=== PATIENT | female | born 1955 | race Caucasian/White ===

== ENCOUNTER 2023-05-27 04:26 | Inpatient (IN) | payer MEDICARE, MEDICAID, SELFPAY ==
[2023-05-27] VITALS (14 sets, daily range): BP systolic 86–122; BP diastolic 48–67; BMI 19.4; BMI 18.4
[2023-05-27 01:16] LABS: % Basophils 0.8 % (0-2); % Eosinophils 3.4 % (0-6); % Immature Granulocytes 0.5 % (0-0.5); % Lymphocytes 24.2 % (20.5-51.1); % Monocytes 9.5 % (1.7-9.3); % Neutrophils 61.6 % (42.2-75.2); Absolute Eosinophils 0.1 10^3/uL (0-0.7); Absolute Lymphocytes 0.9 10^3/uL (1.2-3.4); Absolute Monocytes 0.4 10^3/uL (0.1-0.6); Absolute Neutrophils 2.4 10^3/uL (1.4-6.5); Hematocrit 37.8 % (37.0-47.0); Hemoglobin 12.4 g/dL (12.0-16.0); Mean Corp Hgb Conc. 32.8 g/dL (33.0-37.0); Mean Corpuscular Hgb 29.2 pg (27.0-31.0); Mean Corpuscular Volume 88.9 fL (81.0-99.0); Mean Platelet Volume 9.9 fL (7.4-10.4); Nucleated Red Blood Cells % 0 %; Platelet Count 74 10^3/uL (130-400); Red Blood Cell Count 4.25 10^6/uL (4.20-5.40); Red Cell Dist. Width 16.1 % (11.5-14.5); White Blood Cell Count 3.9 10^3/uL (4.8-10.8)
--- NOTE | 2023-05-27 01:19 | ED.GENMED ---
History of Present Illness
<CHICHI Almanza - Last Filed: 05/27/23 04:30>
General
Chief Complaint: Fall
Source: patient
Exam Limitations: none
Time Seen by Provider: 05/27/23 00:42
Nursing documentation reviewed up to this point in time: agreed with
Travel History
Have you had any contact with someone who has COVID-19?: No
Do you have any symptoms of coronavirus? Fever > 100 degrees, chills, cough, shortness of breath, sore throat, loss of taste or smell, muscle aches, or headache?: No
History of Present Illness
History of Present Illness:
patient is a 68 y/o female presenting after a fall. Patient was walking to the bathroom with her walker when she fell and struck her head. Patient has a laceration on the left scientologist. Patient admits to a MAY. Patient lives at a nursing [facility]. Patient
denies N/V/D/C, SOB, CP, visual changes. Patient is on 2 L of oxygen at home prn. patient had 82% O2sat on arrival patient was placed on 2L. Patient complains of left hip pain that is 10/10 pain. Patient states this pain is chronic due to hisotry of
B/L hip replacements. patient denies neck pain.
Past History
<CHICHI Almanza - Last Filed: 05/27/23 04:30>
Past History
ED Past Medical History: Arrthythmia (Atrial fibrillation), COPD, Other (cirrhosis of liver) and Other (neuropathy)
ED Past Surgical History: Orthopedic
Review of Systems
<CHICHI Almanza - Last Filed: 05/27/23 04:30>
Review of Systems
Musculoskeletal: Reports joint swelling
Skin: Reports other (laceration to left scientologist )
Neurological: Reports headache
Phy Exam
<CHICHI Almanza - Last Filed: 05/27/23 04:30>
Physical Exam
Physical Exam:
laceration
Musculoskeletal Exam
Musculoskeletal Exam: other (pain to let him with decreased ROM )
Skin Exam
Skin Exam: laceration (2 left scientologist 1 cm lacerations)
Course
<Lita Mccauley MARGARITA - Last Filed: 05/27/23 04:30>
Orders/Labs/Results
Orders:
Orders
05/27/23 00:49
EKG [Electrocardiogram (*1)] Urgent
Reason for Study: Shortness of Breath
EKG- Treatment ONCE
05/27/23 01:06
CMP [Comprehensive Metabolic Panel] Urgent
Complete Blood Count/With Diff Urgent
05/27/23 01:07
CT Head W/o Iv Contrast Urgent
Comment: L eye laceration
Reason For Exam: unwitness fall
05/27/23 01:16
Hip, Left 2-3 Views [CR Hip - LT w/wo Pel 2-3 Vw*] Urgent
Comment:
Reason For Exam: fall, L hip pain
Include a pelvis x-ray?: Yes
05/27/23 01:17
Lidocaine/Epinephrine/Tetracai [Let Topical Anesthetic Gel] 3 ml .ROUTE .STK-MED ONE
05/27/23 01:41
Lidocaine/Epinephrine/Tetracai [Let Topical Anesthetic Gel] 3 ml TOPICAL NOW STA
05/27/23 03:32
Admit/Transfer Patient As Directed
Co-Sign Provider:
Level of Care: Inpatient admission
Assign to:: Medical/Surgical
Physician / Group: Alisha Maier
Diagnosis: left periprosthetic hipfracture
Reason for Hospitalization: left periprosthetic hipfracture
Expected length of stay greater than two midnights?: Yes
ELOS- Estimated Length of Stay in days: 3
I certify the patient meets the requirements for IP care: Yes
05/27/23 03:38
Code Status As Directed
Resuscitation Status: Full Code
05/27/23 04:25
Acetaminophen [Tylenol] 650 mg PO Q4H PRN
Hydrocodone 5/APAP 325 [Garrard 5/325] 1 tablet PO Q4HPRN PRN
Lorazepam [Ativan] 0.5 mg PO BID PRN
Polyethylene Glycol Powder [Miralax] 17 grams PO DAILY PRN
05/27/23 04:25
Consult Notification Routine
Specialty to Notify: Pulmonary
Consult Orthopedic [ORTHOPEDIC CONSULT] Routine
Consulting Provider: Ben Florentino
Was physician already notified: Yes
Consult Pulmonary [PULMONARY CONSULT] Routine
Consulting Provider: Israel Lopez
Was physician already notified: No
Reason for consult: OR clearance; hx COPD and chronic O2 dependence with hip fracture
Activity As Directed
Activity Level: As Tolerated
Pneumatic Compression Sleeves As Directed
Type: Knee high
Vital Signs As Directed
Frequency: Per unit guidelines
DX Deep Vein Thrombosis Video Routine
05/27/23 06:00
Basic Metabolic Panel IN AM
Complete Blood Count/No Diff IN AM
Magnesium IN AM
05/27/23 08:00
Gabapentin [Neurontin] 400 mg PO TID
Rifaximin [Xifaxan] 550 mg PO BID
Sertraline HCl [Zoloft] 25 mg PO DAILY
Ursodiol [Actigall] 300 mg PO BID
daicagytber-tmvwtfoap-knfqmmfm [Trelegy Ellipta] 1 inh INH R DAILY
lactulose 15 ml PO TID
Abnormal Lab Results
05/27/23
01:06
WBC 3.9 L 10^3/uL
(4.8-10.8)
MCHC 32.8 L g/dL
(33.0-37.0)
RDW 16.1 H %
(11.5-14.5)
Plt Count 74 L 10^3/uL
(130-400)
Absolute Lymphs (auto) 0.9 L 10^3/uL
(1.2-3.4)
Monocytes % 9.5 H %
(1.7-9.3)
BUN 21 H mg/dl
(7-17)
Glucose 111 H mg/dl
(70-99)
AST 40 H U/L
(14-36)
Alkaline Phosphatase 198 H U/L
(38-126)
Albumin 3.4 L g/dl
(3.5-5.0)
05/27/23 01:06
05/27/23 01:06
Vital Signs
Initial and Last Documented VS:
Initial Vital Signs
Temp Pulse Resp BP Pulse Ox
97.8 F 81 13 122/63 81
05/27/23 00:43 05/27/23 00:43 05/27/23 00:43 05/27/23 00:43 05/27/23 00:43
Last Documented Vital Signs
Temp Pulse Resp BP Pulse Ox
97.8 F 69 13 97/52 91
05/27/23 00:43 05/27/23 02:00 05/27/23 02:00 05/27/23 02:00 05/27/23 03:00
<Carey South, DO - Last Filed: 05/27/23 02:45>
Orders/Labs/Results
Orders:
Orders
05/27/23 00:49
EKG [Electrocardiogram (*1)] Urgent
Reason for Study: Shortness of Breath
EKG- Treatment ONCE
05/27/23 01:06
CMP [Comprehensive Metabolic Panel] Urgent
Complete Blood Count/With Diff Urgent
05/27/23 01:07
CT Head W/o Iv Contrast Urgent
Comment: L eye laceration
Reason For Exam: unwitness fall
05/27/23 01:16
Hip, Left 2-3 Views [CR Hip - LT w/wo Pel 2-3 Vw*] Urgent
Comment:
Reason For Exam: fall, L hip pain
Include a pelvis x-ray?: Yes
05/27/23 01:17
Lidocaine/Epinephrine/Tetracai [Let Topical Anesthetic Gel] 3 ml .ROUTE .STK-MED ONE
05/27/23 01:41
Lidocaine/Epinephrine/Tetracai [Let Topical Anesthetic Gel] 3 ml TOPICAL NOW STA
05/27/23 03:32
Admit/Transfer Patient As Directed
Co-Sign Provider:
Level of Care: Inpatient admission
Assign to:: Medical/Surgical
Physician / Group: Alisha Maier
Diagnosis: left periprosthetic hipfracture
Reason for Hospitalization: left periprosthetic hipfracture
Expected length of stay greater than two midnights?: Yes
ELOS- Estimated Length of Stay in days: 3
I certify the patient meets the requirements for IP care: Yes
05/27/23 03:38
Code Status As Directed
Resuscitation Status: Full Code
05/27/23 04:25
Acetaminophen [Tylenol] 650 mg PO Q4H PRN
Hydrocodone 5/APAP 325 [Garrard 5/325] 1 tablet PO Q4HPRN PRN
Lorazepam [Ativan] 0.5 mg PO BID PRN
Polyethylene Glycol Powder [Miralax] 17 grams PO DAILY PRN
05/27/23 04:25
Consult Notification Routine
Specialty to Notify: Pulmonary
Consult Orthopedic [ORTHOPEDIC CONSULT] Routine
Consulting Provider: Ben Florentino
Was physician already notified: Yes
Consult Pulmonary [PULMONARY CONSULT] Routine
Consulting Provider: Israel Lopez
Was physician already notified: No
Reason for consult: OR clearance; hx COPD and chronic O2 dependence with hip fracture
Activity As Directed
Activity Level: As Tolerated
Pneumatic Compression Sleeves As Directed
Type: Knee high
Vital Signs As Directed
Frequency: Per unit guidelines
DX Deep Vein Thrombosis Video Routine
05/27/23 06:00
Basic Metabolic Panel IN AM
Complete Blood Count/No Diff IN AM
Magnesium IN AM
05/27/23 08:00
Gabapentin [Neurontin] 400 mg PO TID
Rifaximin [Xifaxan] 550 mg PO BID
Sertraline HCl [Zoloft] 25 mg PO DAILY
Ursodiol [Actigall] 300 mg PO BID
dpeugzplnjd-rrsbxnukv-xumxeleb [Trelegy Ellipta] 1 inh INH R DAILY
lactulose 15 ml PO TID
Abnormal Lab Results
05/27/23
01:06
WBC 3.9 L 10^3/uL
(4.8-10.8)
MCHC 32.8 L g/dL
(33.0-37.0)
RDW 16.1 H %
(11.5-14.5)
Plt Count 74 L 10^3/uL
(130-400)
Absolute Lymphs (auto) 0.9 L 10^3/uL
(1.2-3.4)
Monocytes % 9.5 H %
(1.7-9.3)
BUN 21 H mg/dl
(7-17)
Glucose 111 H mg/dl
(70-99)
AST 40 H U/L
(14-36)
Alkaline Phosphatase 198 H U/L
(38-126)
Albumin 3.4 L g/dl
(3.5-5.0)
05/27/23 01:06
05/27/23 01:06
Vital Signs
Initial and Last Documented VS:
Initial Vital Signs
Temp Pulse Resp BP Pulse Ox
97.8 F 81 13 122/63 81
05/27/23 00:43 05/27/23 00:43 05/27/23 00:43 05/27/23 00:43 05/27/23 00:43
Last Documented Vital Signs
Temp Pulse Resp BP Pulse Ox
97.8 F 69 13 97/52 91
05/27/23 00:43 05/27/23 02:00 05/27/23 02:00 05/27/23 02:00 05/27/23 03:00
Procedures
<CHICHI Almanza - Last Filed: 05/27/23 04:30>
Laceration Closure
Left Lateral Eye brow:
Status of Wound: clean
Size of Wound in cm: 2.5
Description of Wound Edges: sharp
Preparation: cleaned with saline
Anesthesia: 1% Lidocaine with epi and added Na Bicarb to local
Revision/Debridement: irrigate-direct pressure
Wound exploration: explored to base- no FB
Type of Closure: interrupted sutures
Skin Closure Material: 5-0 prolene
Number of sutures: 6
<CHICHI Almanza - Last Filed: 05/27/23 04:30>
MDM/Problems Addressed
Differential Diagnosis Includes:
fall
hip fracture
brain hemorrhage
MDM/Problems Addressed:
fall
<Carey South DO - Last Filed: 05/27/23 02:45>
*Radiology
Radiology exam reviewed: preliminary read by ED provider (Left x-ray shows a periprosthetic fracture lateral proximal femur shaft. This fracture is new compared to previous film January 2023.)
*Pulse Oximetry
Patient hypoxic: yes
*EKG
Interpreted by ED Provider?: Yes
Interpretation: normal
Comparison EKG: no changes (Unchanged from previous January 2023)
Rate: normal
Rhythm: sinus
Reading: normal axis
Interval: normal interval
QRS Pattern: normal QRS
Ischemia: no ischemia
*Critical Care Note
Total Time (30-74mins, 75-104mins- exclusive of procedures): Not Applicable
ED Attending Note
<CHICHI Almanza - Last Filed: 05/27/23 04:30>
-
Portions of this chart may have been created with voice recognition software.� Occasional wrong word or��sound alike� substitutions may have occurred due to the inherent limitations of voice recognition software.
<Carey South DO - Last Filed: 05/27/23 02:45>
ED Attending Note
Patient seen and examined by attending physician: Yes
I performed the substantive portion of visit, reviewed & personally made and approve the management plan that is documented in note by myself or QUINTON.: Yes
I performed a history and physical exam of patient and discussed management with resident, I reviewed resident's note and agree with documented findings and plan of care.: Yes
ED Attending Note:
This is a 68-year-old woman who has history of peripheral neuropathy, bilateral hip replacements, chronic ambulatory dysfunction, [facility] since most recent hospitalization here January 2023.
While ambulating with her walker into the bathroom she states her walker 'got away from her' and she fell onto her left side sustaining a laceration to her left lateral brow, contusion to her left shoulder. She denies loss of consciousness. She
arrives via EMS.
She denies headache, denies neck or back pain. She does admit to moderate left hip pain and has history of chronic left hip pain for which she takes hydrocodone twice daily on an as-needed basis. She denies back pain, no nausea nor vomiting.
She takes no anticoagulants.
She has full recollection of fall, denying prodrome of dizziness nor lightheadedness.
TRAUMA EXAM:
VITAL SIGNS: Vital signs reviewed, cooperative
DISTRESS: No active disease
EYES: Pupils reactive, extraocular muscles intact. There is a 2.5 cm lacerations left lateral brow with moderate dried blood about the wound. Minimal local tenderness to palpation.
NOSE: No deformity or epistaxis
FACE AND SCALP: No scalp trauma, external canals no blood
NECK: Supple nontender, full range of motion without difficulty nor pain.
BACK: Patient able to sit up with only minimal assistance. Back nontender, pelvis stable to compression
RESPIRATORY: No distress, breath sounds normal, no tender chest wall
CARDIAC: No murmur, pulses equal and strong
ABDOMEN: Soft nontender bowel sounds normal
SKIN: Warm and dry, normal color. Poor turgor.
EXTREMITIES: There is a superficial abrasion left superior shoulder. No focal bony tenderness and full shoulder range of motion without difficulty nor pain. There is dark purple ecchymosis left posterior distal upper arm. No bony tenderness and
full elbow range of motion without difficulty nor pain. There is mild tenderness about the left hip with increased pain of the left hip with internal and external rotation. There is no leg length discrepancy. No soft tissue swelling, no crepitus.
NEUROLOGICAL: Alert, oriented, no motor deficits
PSYCH: Mood affect normal
Patient has suffered a mechanical fall while ambulating with her walker sustaining laceration left lateral brow that will require suture repair.
She has sustained an abrasion to her superior shoulder but no palpable bony tenderness and full range of motion.
She does however complain of some left hip pain although chronic in nature reports increased in her baseline pain and reports inability to bear weight when assisted to stand by EMS. Concern for occult fracture thus will check x-ray of her left hip
with pelvis and will check CT of the head due to advanced age and head injury.
05/27/2023 0243 AM
Left lateral brow laceration repair by PA student under my direct supervision.
Left hip x-ray shows periprosthetic fracture proximal femoral shaft. Hip prosthesis is intact.
CT of the head shows no acute traumatic findings.
Will admit to hospitalist service with plan for orthopedic evaluation.
Discharge Plan
Departure
Patient Disposition: Admit
Date of Disposition: 05/27/23
Time of Disposition: 02:44
Admit to: Med/Surg
Admit to doctor: Livier
Presentation/result/management discussed w/ accepting MD/DO: Hospitalist
Condition: Fair
Discharge Problem:
Periprosthetic fracture around internal prosthetic left hip joint, initial encounter, Mechanical fall at senior living, Left lateral brow laceration, Contusion of left shoulder
Interventions
Interventions:
*Risk Screen - Suicide Last Done: 05/27/23 00:50
*General Assessment Last Done: 05/27/23 00:50
*Neglect/Abuse Screening Last Done: 05/27/23 00:50
ED- Fall Risk Assessment Last Done: 05/27/23 01:21
*ED COVID-19 Vaccine History Last Done: 05/27/23 00:50
ED-Musculoskeletal Assessment Last Done: 05/27/23 01:18
ED- Neurological Assessment Last Done: 05/27/23 01:18
ED-Skin Assessment Last Done: 05/27/23 01:18
[2023-05-27 01:33] LABS: ALT (SGPT) 24 U/L (0-35); AST (SGOT) 40 U/L (14-36); Albumin 3.4 g/dl (3.5-5.0); Alkaline Phosphatase 198 U/L (38-126); Blood Urea Nitrogen 21 mg/dl (7-17); Calcium 9.5 mg/dl (8.4-10.2); Carbon Dioxide 25 mmol/L (22-30); Chloride 107 mmol/L (98-107); Estimated Creatinine Clearance 68 ml/min; Glucose 111 mg/dl (70-99); Potassium 4.1 mmol/L (3.5-5.1); Sodium 135 mmol/L (135-145); Total Bilirubin 0.8 mg/dl (0.2-1.3); Total Protein 6.9 g/dl (6.3-8.2); eGFR > 60.00
[2023-05-27] MEDS: LET TOPICAL ANESTHETIC GEL 3 ML TOPICAL (01:41)
--- NOTE | 2023-05-27 03:17 | HPS.HSE ---
Addendum entered and electronically signed by Alisha Maier MD 05/27/23 03:54:
*HPI:
Patient somnolent during my interview at 3:30 AM but able to wake up and not to questions I ask. History mainly obtained from ER note. She was walking to the bathroom with a walker when she tripped and hit her head. Patient nodded yes to
remembering the act of falling and no to any preceding chest pain. She complained of left hip pain upon arrival to the ER.
Original Note:
Family Physician
-
Family Physician: Douglas Conner
Chief Complaint
-
left hip pain post fall
History of Present Illness
MS. 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
former alcohol use presents to the ER after a fall resulting in left lateral orbit laceration and left hip pain.
Medical History
Past Medical History
Past Medical History: Reports Other
Additional Past Medical History:
Chronic obstructive pulmonary disease with chronic hypoxemic respiratory failure oxygen dependent
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
Peripheral neuropathy
Depression/anxiety
History of hyponatremia
History of hepatic encephalopathy
Past Surgical History: Reports Other
Additional Past Surgical History:
Right hip replacement 2021
Left hip replacement 2022
Social History
Tobacco: Former Smoker (Quit 6 months ago--1 pack/day)
Alcohol: Former (Quit 'a long time ago')
Drug: None
Living: With Family
Family History
Family History: Other (Mother, father, brother all of alcoholism)
Allergies / Home Medications
Allergies reflects when Allergies were last updated in [facility].
Home Medications with original date entered in [employer]
Allergy/Medication List:
Allergies
Allergy/AdvReac Type Severity Reaction Status Date / Time
No Known Allergies Allergy Verified 05/27/23 00:47
Home Medications
fluticasone fur. 100 mcg-umeclid 62.5 mcg-vilant 25 mcg inhalat.powder (Trelegy Ellipta) 1 inh inhalation R DAILY Lung/Breathing Issues 01/29/23
furosemide 20 mg tablet 20 mg PO DAILY Fluid Retention/Swelling 01/29/23
gabapentin 300 mg capsule 400 mg PO TID Neurological Condition 01/29/23
hydrocodone 5 mg-acetaminophen 325 mg tablet 1 tab PO BID PRN mild pain 01/29/23
ketoconazole 2 % shampoo 1 applic topical .SEE BELOW apply to scalp 01/29/23
lactulose 10 gram/15 mL oral solution 15 ml PO TID Liver Issues 01/29/23
lorazepam 0.5 mg tablet 0.5 mg PO BID PRN anxiety 01/29/23
polyethylene glycol 3350 17 gram oral powder packet (Miralax) 17 g PO DAILY PRN constipation 01/29/23
rifaximin 550 mg tablet (Xifaxan) 550 mg PO BID Liver Issues 01/29/23
sertraline 25 mg tablet 25 mg PO DAILY Depression 01/29/23
spironolactone 25 mg tablet 25 mg PO DAILY Fluid Retention/Swelling 01/29/23
ursodiol 300 mg capsule 300 mg PO BID Gallstones 01/29/23
acetaminophen 325 mg tablet (Tylenol) 650 mg PO Q4H PRN for pain 05/27/23
acetaminophen 325 mg tablet (Tylenol) 650 mg PO Q4H PRN temp greater than 100 F Max 3000mg in 24 hr period 05/27/23
Review of Systems
-
History Source: Patient
A 12 point ROS was completed and negative except as noted: Yes
Physical Exam
Vital Signs
Vital Signs
Temp Pulse Resp BP Pulse Ox
97.8 F 69 13 97/52 91
05/27/23 00:43 05/27/23 02:00 05/27/23 02:00 05/27/23 02:00 05/27/23 03:00
Physical Exam
General: No Apparent Distress and Other (patient somnolent at 3:45 AM but able to awaken to voice and nod to questions )
HEENT: PERRLA and Other (left lateral eyebrow wound s/p sutures )
Respiratory: Clear; No Wheezes
Cardiac: S1/S2 and Regular Rhythm
GI: Soft and Non Tender
Musculoskeletal: No Edema
Neuro: Sedated (arousable to voice )
Psych: Calm
Laboratory Results
-
05/27/23 01:06
05/27/23 01:06
Laboratory Results
Total Bilirubin 0.8 mg/dl (0.2-1.3) 05/27/23 01:06
AST 40 U/L (14-36) H 05/27/23 01:06
ALT 24 U/L (0-35) 05/27/23 01:06
Alkaline Phosphatase 198 U/L (38-126) H 05/27/23 01:06
Data Reviewed
-
Diagnostic Radiology: Report Reviewed by me
Lab Data: Labs Reviewed by me
Impression/Plan
-
MS. 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
former alcohol use presents to the ER after a fall resulting in left lateral orbit laceration and left hip pain.
Triage VS: T 97.8, P 81, RR 13, BP 122/63, SpO2 81%
LABS: WBC 3.9, HG 12.4, PLT 74, Na 135, K+ 4.1, BUN 21, Cr 0.6, Glucose 111, Ca 9.5, T. Bili 0.8, AST 40, ALT 24, Alk Phos 198
CT Head: no acute intracranial abnormality. No acute territorial infarct, hemorrhage, mass effect or midline shift. Mild microangiopathy and volume loss.
Periprosthetic left hip fracture
-admit to medicine
-Dr. Florentino aware and will see patient tomorrow
-keep NPO for now until ortho evaluates
-DVT PPx with SCD for now
-patient did not receive pain medication in ER and sound asleep; will have norco PRN, team to order IV if necessary
-Pulm clearance prior to OR given O2 dependence
Laceration left lateral brow
-s/p suturing in ER
-head CT without acute bleed
Hx cirrhosis 2/2 alcohol use
chronic thrombocytopenia
-in setting of cirrhosis
-stable
-hold PRODUCTION CHECKER lasix/spironolactone for now while NPO
-continue PRODUCTION CHECKER Xifaxan
-PRODUCTION CHECKER lactulose
COPD
Chronic hypoxic respiratory failure on home O2
-PRODUCTION CHECKER inhalers
-Pulm clearance prior to potential OR
Depression/Anxiety
-PRODUCTION CHECKER Zoloft
-PRODUCTION CHECKER ativan PRN
DVT PPx SCD
FULL CODE - patient tired but able to wake up enough to answer questions during interview - team to consider rediscussing with patient tomorrow when she is more awake
[2023-05-27 06:45] LABS: Hematocrit 35.4 % (37.0-47.0); Hemoglobin 11.3 g/dL (12.0-16.0); Mean Corp Hgb Conc. 31.9 g/dL (33.0-37.0); Mean Corpuscular Hgb 29.4 pg (27.0-31.0); Mean Corpuscular Volume 91.9 fL (81.0-99.0); Mean Platelet Volume 10.9 fL (7.4-10.4); Platelet Count 76 10^3/uL (130-400); Red Blood Cell Count 3.85 10^6/uL (4.20-5.40); White Blood Cell Count 5.1 10^3/uL (4.8-10.8)
[2023-05-27 07:18] LABS: Blood Urea Nitrogen 22 mg/dl (7-17); Calcium 9.6 mg/dl (8.4-10.2); Carbon Dioxide 24 mmol/L (22-30); Chloride 107 mmol/L (98-107); Estimated Creatinine Clearance 68 ml/min; Glucose 99 mg/dl (70-99); Magnesium 1.7 mg/dl (1.6-2.3); Sodium 139 mmol/L (135-145); eGFR > 60.00
--- NOTE | 2023-05-27 07:38 | W.PN.UPDATE ---
Update Note
Progress Note Update
Patient seen and evaluated
Plan pending. NWB LLE for now. No planned orthopedic intervention today, OK to eat.
Will update plan with formal consult note.
--- NOTE | 2023-05-27 09:09 | CM ---
Patient is LTC at [facility]. Patient s/p fall and per admissions is for return when medically appropriate. CM will update physician and continue to review.
Plan return to SNF when medically appropriate
[2023-05-27] MEDS: NORCO 5/325 1 TABLET PO ×2 (09:21→21:43)
--- NOTE | 2023-05-27 09:56 | CON.PUL ---
Consultation
Consultation Request
Date/Time Consultation Requested: 05/27/23-7:30 AM
Date/Time Consultation Performed: 05/27/23-8 AM
Requesting Provider: Hospitalist
Performing Provider: Dr. Chang
Reason for Consultation: COPD/preoperative clearance
Medical History
-
Chief Complaint: Hip fracture
History of Present Illness:
68-year-old female recently quit smoking has a history of underlying COPD on 3 L home oxygen, cirrhosis, hepatic encephalopathy, anxiety and depression with bilateral hip replacements in the past who experienced a fall resulting in left lateral
orbit laceration and left hip pain-might need surgery-pulmonary consulted for preoperative COPD/pulmonary clearance 05/27/2023. Patient was seen in the emergency room. She is somewhat groggy. I wondered if she had gotten pain medications, upper, I
spoke to nursing and she had not. She was alert and able to answer questions. She denies any shortness of breath beyond her baseline, chest congestion, productive cough, mopped assist, pleurisy, chest pain, or abdominal pain. She did complain of
hip pain. She states she is not on inhalers at home. She is on 3 L oxygen. She does not follow with a contracts officer.
Past Medical History
Past Medical History: None (COPD on chronic 3 L oxygen. Cirrhosis secondary to alcohol. History hepatic encephalopathy. Anxiety. Depression. Peripheral neuropathy. Hyponatremia. Right hip replacement 2021. Left hip replacement 2022. )
Social History
Tobacco: Former Smoker ([id number] quit 6 months ago)
Alcohol: Former
Drug: None
Living: With Family
Occupational Exposures: No known asbestos exposure
Environmental Exposures: No known tuberculosis exposure
Family History
Family History: Other (Mother, brother and father from alcoholism)
Allergies / Home Medications
Allergies
Allergy/AdvReac Type Severity Reaction Status Date / Time
No Known Allergies Allergy Verified 05/27/23 00:47
Home Medications
�Medication �Instructions �Recorded �Confirmed �Last Taken �Type
furosemide 20 mg tablet 20 mg PO DAILY Fluid 01/29/23 05/27/23 Unknown History
Retention/Swelling
hydrocodone 5 mg-acetaminophen 325 1 tab PO [id number] PRN mild pain 01/29/23 05/27/23 Unknown History
mg tablet
lactulose 10 gram/15 mL oral 15 ml PO TID Liver Issues 01/29/23 05/27/23 Unknown History
solution
lorazepam 0.5 mg tablet 0.5 mg PO [id number] PRN anxiety 01/29/23 05/27/23 Unknown History
rifaximin 550 mg tablet (Xifaxan) 550 mg PO BID Liver Issues 01/29/23 05/27/23 Unknown History
acetaminophen 325 mg tablet 650 mg PO Q4HPRN PRN mild 05/27/23 05/27/23 Unknown History
(Tylenol) pain/temp>100F
bisacodyl 10 mg rectal suppository 10 mg KS DAILY PRN if MOM 05/27/23 05/27/23 Unknown History
(Dulcolax (bisacodyl)) ineffective after 24 hrs
fluticasone fur. 100 mcg-umeclid 1 inh inhalation R DAILY 05/27/23 05/27/23 Unknown History
62.5 mcg-vilant 25 mcg
inhalat.powder (Trelegy Ellipta)
gabapentin 400 mg capsule 400 mg PO TID 05/27/23 05/27/23 Unknown History
magnesium hydroxide 400 mg/5 mL 30 ml PO DAILY PRN if no BM in 3 05/27/23 05/27/23 Unknown History
oral suspension (Milk of Magnesia) days
melatonin 5 mg tablet 5 mg PO HS 05/27/23 05/27/23 Unknown History
polyethylene glycol 3350 17 gram 17 g PO DAILY PRN constipation 05/27/23 05/27/23 Unknown History
oral powder packet (Miralax)
sertraline 25 mg tablet 25 mg PO DAILY 05/27/23 05/27/23 Unknown History
sodium phosphates 19 gram-7 118 ml KS DAILYPRN PRN if dulcolax 05/27/23 05/27/23 Unknown History
gram/118 mL enema (Fleet Enema) ineffective after 24 hrs
spironolactone 25 mg tablet 25 mg PO DAILY 05/27/23 05/27/23 Unknown History
Review of Systems
-
Unable to Obtain full review of systems at this time due to: Other (Per HPI)
Vitals / Labs / Diagnostic Testing
Vital Signs
Temp Pulse Resp BP Pulse Ox
98.1 F 77 13 94/55 94
05/27/23 09:18 05/27/23 09:18 05/27/23 02:00 05/27/23 09:00 05/27/23 09:15
Lab Data
05/27/23 06:01
05/27/23 06:01
Diagnostic Testing:
Physical Exam
-
HEENT: Normocephalic, Anicteric, Moist Mucous Membranes and Other (Temporal wasting)
Cardiovascular: Regular Rhythm and Murmur
Respiratory: Clear ( diminished breath sounds throughout), Wheeze (Forced end expiratory), Rales (n), Rhonchi (n), Non-Labored Respirations and Accessory Resp Muscle Use (n)
GI: Soft, Non Distended and Non Tender
Neurology: Awake, Alert and No Motor Deficits
Skin: Warm and Good Color
General: Respiratory Distress (n) and Comfortable
Assessment
-
68-year-old female recently quit smoking has a history of underlying COPD on 3 L home oxygen, cirrhosis, hepatic encephalopathy, anxiety and depression with bilateral hip replacements in the past who experienced a fall resulting in left lateral
orbit laceration and left hip pain-might need surgery-pulmonary consulted for preoperative COPD/pulmonary clearance 05/27/2023.
Status post fall with periprosthetic left hip fracture
Left lateral brow laceration-CT head without acute bleed
COPD-suspect Gold stage III/IV without acute exacerbation-on chronic oxygen 3 L
Mild ztmolq-mqqbfvomuj-zftkxeydzs 11.3
Thrombocytopenia-platelet 74
Mild hyperglycemia-blood sugar 111
Conditions present prior to admission:
Hospitalization 01/2023-weakness, fall, chronic hypoxemic respiratory failure due to oxygen dependent COPD, cirrhosis and chronic thrombocytopenia
COPD on chronic 3 L oxygen-reportedly does not see a contracts officer, not on inhalers, on oxygen 3 L
Former [id number]-quit 6 months ago
Cirrhosis secondary to alcohol.
History hepatic encephalopathy.
Anxiety.
Depression.
Peripheral neuropathy.
Hyponatremia.
Right hip replacement 2021. Left hip replacement 2022.
Plan
Historically I suspect the patient has Gold stage III/IV COPD-oxygen dependent not on inhalers with current chest clear, diminished, no active wheezing or crackles
Continue supplemental oxygen as needed
Incentive spirometry
Aspiration precautions
Nebulizers as needed
Symbicort and Spiriva continue
Analgesia per primary service-monitor for oversedation
Orthopedics to see patient
If OR needed-patient cleared for proposed surgery with moderate risks for perioperative pulmonary complications-if possible conscious sedation/spinal and local anesthesia
Follow hemoglobin
Transfuse as needed
Follow platelet count as well
DVT prophylaxis-mechanical
Eventual early nutrition
Eventual physical and Occupational Therapy
Patient would benefit from outpatient pulm evaluation-PFTs, probable inhalers, ongoing smoking cessation counseling and yearly low-dose lung cancer screening CT
Diagnostic data:
Chest x-ray 01/29/2023-blunting of both posterior sulci suggesting small bilateral pleural effusions, lungs otherwise clear
Hip x-ray 05/27/23-bilateral hip arthroplasties, periprosthetic fracture left side
CT head 05/27/23-no acute intracranial abnormalities, diffuse cortical atrophy
Data Reviewed
-
Radiology: Report reviewed by me
Medical Tests (Nuc Med, Echo etc): Report reviewed by me
Labs: Labs reviewed by me
Old Records: Reviewed
Total Time Spent with Patient (in minutes): 55
--- NOTE | 2023-05-27 10:14 | PTCARENOTE ---
pt wakes to name. oriented x3. states 10/10 pain in left hip. pain med given as ordered. nc3l breath sounds diminished with harsh cough.
--- NOTE | 2023-05-27 10:15 | PTCARENOTE ---
left forehead sutures in place with dressing over.
[2023-05-27] MEDS: DUPHALAC/CHRONULAC 10 GRAMS PO ×3 (10:43→21:38)
[2023-05-27] MEDS: NEURONTIN 400 MG PO ×3 (10:43→21:38)
[2023-05-27] MEDS: ZOLOFT 25 MG PO (10:44)
[2023-05-27] MEDS: XIFAXAN 550 MG PO ×2 (10:44→21:38)
[2023-05-27] MEDS: ALDACTONE PO (11:08)
[2023-05-27] MEDS: SYMBICORT 80/4.5 MCG INHALER INH (11:22)
[2023-05-27] MEDS: SPIRIVA RESPIMAT 2.5 MCG INH (11:22)
--- NOTE | 2023-05-27 15:36 | W.PN.UPDATE ---
Update Note
Progress Note Update
Seen by Dr. Maier this morning. Admitted after a fall and sustaining a periprosthetic left femur fracture.
Currently she is awake and alert.
She remembers getting up in the dark to go to the bathroom and stepped on something and fell down. She also has neuropathy. Balance is an issue for her.
Denies any passing out spells.
She is planned for surgery possibly tomorrow.
She is COPD with no acute symptoms. She is chronically on O2. Chest is clear. No respiratory distress. No cough or sore throat. No evidence of acute flare.
EKG sinus rhythm. No history of CAD. Denies history of diabetes or PAD.
Known to have cirrhosis on diuretic regimen and as well as lactulose. Currently alert and oriented. No evidence of encephalopathy. No evidence of ascites clinically. Continue with her home medication regimen. Watch out for hepatic
encephalopathy with anesthesia. Check coagulation profile. Chronic thrombocytopenia noted without changes.
[2023-05-27] MEDS: TYLENOL 650 MG PO (15:56)
--- NOTE | 2023-05-27 15:57 | PTCARENOTE ---
pt transfered to floor with all belongings.
--- NOTE | 2023-05-27 17:28 | CON.ORTHO ---
Consultation
-
Date/Time Consultation Requested: 3 AM 05/27/2023
Date/Time Consultation Performed: 730 AM 05/27/2023
Requesting Provider: Livier
Performing Provider: Chadd
Reason for Consultation: Left periprosthetic femur fracture
Consultation - Orthopedics
History
68-year-old female history of cirrhosis COPD on chronic oxygen at baseline presented to the emergency department status post fall with complaints of left hip pain. She was subsequently diagnosed with minimally displaced periprosthetic left femur
fracture. She was admitted to the hospital service for ambulatory dysfunction and orthopedics was consulted for further evaluation and treatment. This morning patient was somewhat somnolent but did awaken for history taking. She reports that she
does live at a rehab facility. She does typically ambulate with assistance of a walker. She reports recently moving to the area from [place] to be closer to her daughter. She does have a history of bilateral total hip arthroplasty left most
recently done about a year and a half ago in [place]. She is currently localizing pain to the lateral aspect of the left thigh and hip region. Symptoms made worse with direct palpation affected area with attempted ambulation.
Allergies / Home Medications
Past medical history: COPD on chronic oxygen, cirrhosis secondary to alcohol use, history of hepatic encephalopathy, anxiety/depression
Past surgical history: Bilateral total hip arthroplasty
Family history: Not pertinent
Social history: Former smoker reportedly quit about 6 months ago, former alcohol use
Allergy/AdvReac Type Severity Reaction Status Date / Time
No Known Allergies Allergy Verified 05/27/23 00:47
�Medication �Instructions �Recorded
furosemide 20 mg tablet 20 mg PO DAILY Fluid 01/29/23
Retention/Swelling
hydrocodone 5 mg-acetaminophen 325 1 tab PO [id number] PRN mild pain 01/29/23
mg tablet
lactulose 10 gram/15 mL oral 15 ml PO TID Liver Issues 01/29/23
solution
lorazepam 0.5 mg tablet 0.5 mg PO [id number] PRN anxiety 01/29/23
rifaximin 550 mg tablet (Xifaxan) 550 mg PO BID Liver Issues 01/29/23
acetaminophen 325 mg tablet 650 mg PO Q4HPRN PRN mild 05/27/23
(Tylenol) pain/temp>100F
bisacodyl 10 mg rectal suppository 10 mg IN DAILY PRN if MOM 05/27/23
(Dulcolax (bisacodyl)) ineffective after 24 hrs
fluticasone fur. 100 mcg-umeclid 1 inh inhalation R DAILY 05/27/23
62.5 mcg-vilant 25 mcg
inhalat.powder (Trelegy Ellipta)
gabapentin 400 mg capsule 400 mg PO TID 05/27/23
magnesium hydroxide 400 mg/5 mL 30 ml PO DAILY PRN if no BM in 3 05/27/23
oral suspension (Milk of Magnesia) days
melatonin 5 mg tablet 5 mg PO HS 05/27/23
polyethylene glycol 3350 17 gram 17 g PO DAILY PRN constipation 05/27/23
oral powder packet (Miralax)
sertraline 25 mg tablet 25 mg PO DAILY 05/27/23
sodium phosphates 19 gram-7 118 ml IN DAILYPRN PRN if dulcolax 05/27/23
gram/118 mL enema (Fleet Enema) ineffective after 24 hrs
spironolactone 25 mg tablet 25 mg PO DAILY 05/27/23
Vital Signs / Lab Results
Temp Pulse Resp BP Pulse Ox
97.9 F 70 20 110/58 95
05/27/23 15:00 05/27/23 15:00 05/27/23 15:00 05/27/23 15:00 05/27/23 16:29
05/27/23 06:01
05/27/23 06:01
10 point review systems reviewed and negative unless otherwise stated
General: Somewhat somnolent, alert for history taking, no acute distress
, Left lower extremity
Skin intact overlying left hip with well-healed surgical incision
No groin pain with passive motion of left hip
There is discrete tense palpation of the lateral trochanteric flare lateral proximal femur
No palpable ipsilateral knee effusion
Positive EHL, FHL, ankle dorsiflexion, plantarflexion
Sensation at baseline distally numbers cap refill
Diagnostic studies
X-rays left hip independently viewed by myself. This does show essentially nondisplaced disruption of the lateral cortex consistent with a Dalton B periprosthetic femur fracture. Recent radiographs obtained of the left hip in January were also
reviewed that do show no evidence of interval subsidence of the femoral stem on current radiographs.
Assessment / Plan
68-year-old female history of cirrhosis COPD with minimally displaced Dalton B periprosthetic femur fracture left. I had a very long detailed discussion with patient regarding diagnosis and treatment options. We discussed both conservative and
surgical treatment. Given the patient's significant comorbidities and the minimally displaced nature of the fracture, we mutually agreed to proceed with conservative treatment. Would recommend toe-touch weightbearing left lower extremity with a
walker. Will plan to follow closely outpatient setting serial radiographs. I did explain to the patient that should there be any evidence of interval displacement or subsidence of the fracture stem, she likely would require surgery either open
reduction internal fixation or open reduction internal fixation to include revision of arthroplasty components. She voiced understanding was agreement with this. She did ask me to reach out to her daughter who is a nurse to discuss this further
and I will plan to give her a call. Plan to have her follow-up as an outpatient in 2 weeks for repeat evaluation with repeat radiographs. Please reach out any questions or concerns
[2023-05-27] MEDS: SYMBICORT 80/4.5 MCG INHALER 2 PUFF INH (19:23)
[2023-05-28 06:19] LABS: Hemoglobin 10.8 g/dL (12.0-16.0); Mean Corp Hgb Conc. 31.8 g/dL (33.0-37.0); Mean Corpuscular Hgb 29.5 pg (27.0-31.0); Mean Corpuscular Volume 92.9 fL (81.0-99.0); Mean Platelet Volume 11.3 fL (7.4-10.4); Platelet Count 76 10^3/uL (130-400); Red Blood Cell Count 3.66 10^6/uL (4.20-5.40); White Blood Cell Count 4.3 10^3/uL (4.8-10.8)
[2023-05-28 06:24] LABS: INR 1.42; PT 17.4 Sec (11.4-14.6)
[2023-05-28 07:09] LABS: Blood Urea Nitrogen 27 mg/dl (7-17); Calcium 8.9 mg/dl (8.4-10.2); Carbon Dioxide 25 mmol/L (22-30); Chloride 107 mmol/L (98-107); Estimated Creatinine Clearance 49 ml/min; Glucose 89 mg/dl (70-99); Sodium 138 mmol/L (135-145); eGFR > 60.00
[2023-05-28 07:15] LABS: Potassium 4.2 mmol/L (3.5-5.1)
[2023-05-28] MEDS: SYMBICORT 80/4.5 MCG INHALER 2 PUFF INH ×2 (07:35→19:28)
[2023-05-28] MEDS: SPIRIVA RESPIMAT 2.5 MCG 2 PUFF INH (07:36)
[2023-05-28 07:38] VITALS: BP 109/54
[2023-05-28] MEDS: NORCO 5/325 1 TABLET PO ×2 (09:44→15:49)
[2023-05-28] MEDS: DUPHALAC/CHRONULAC 10 GRAMS PO (09:45)
[2023-05-28] MEDS: XIFAXAN 550 MG PO ×2 (09:45→21:42)
[2023-05-28] MEDS: NEURONTIN 400 MG PO ×3 (09:45→21:44)
[2023-05-28] MEDS: ALDACTONE 25 MG PO (09:45)
[2023-05-28] MEDS: ZOLOFT 25 MG PO (09:45)
--- NOTE | 2023-05-28 09:46 | W.PN.PUL.V3 ---
Today's Communication / Plan
-
Oxygen as needed
Nebulizers as needed
Conservative therapy for hip fracture per orthopedics
Assessment
-
68-year-old female recently quit smoking has a history of underlying COPD on 3 L home oxygen, cirrhosis, hepatic encephalopathy, anxiety and depression with bilateral hip replacements in the past who experienced a fall resulting in left lateral
orbit laceration and left hip pain-might need surgery-pulmonary consulted for preoperative COPD/pulmonary clearance 05/27/2023.
Status post fall with periprosthetic left hip fracture
Left lateral brow laceration-CT head without acute bleed
COPD-suspect Gold stage III/IV without acute exacerbation-on chronic oxygen 3 L
Mild cuwalh-zhumqzsbyg-wwvthzmifn 11.3
Thrombocytopenia-platelet 74
Mild hyperglycemia-blood sugar 111
Conditions present prior to admission:
Hospitalization 01/2023-weakness, fall, chronic hypoxemic respiratory failure due to oxygen dependent COPD, cirrhosis and chronic thrombocytopenia
COPD on chronic 3 L oxygen-reportedly does not see a transit planner, not on inhalers, on oxygen 3 L
Former [id number]-year-quit 6 months ago
Cirrhosis secondary to alcohol.
History hepatic encephalopathy.
Anxiety.
Depression.
Peripheral neuropathy.
Hyponatremia.
Right hip replacement 2021. Left hip replacement 2022.
Plan
Pulmonary suspects the patient has Gold stage III/IV COPD-oxygen dependent not on inhalers with current chest clear, diminished, no active wheezing or crackles, no obvious CO2 retention on chemistry
Continue supplemental oxygen as needed
Incentive spirometry
Aspiration precautions
Nebulizers as needed-minimal bronchospasm though overall diminished breath sounds
Symbicort and Spiriva continue
Analgesia per primary service-monitor for oversedation
Orthopedics consultation noted conservative approach without open reduction, internal fixation for now-they will monitor closely
If OR needed-patient cleared for proposed surgery with moderate risks for perioperative pulmonary complications-if possible conscious sedation/spinal and local anesthesia
Monitor hemoglobin-stable at 10.8
Transfuse as needed
Follow platelet count as well
DVT prophylaxis-mechanical
Eventual early nutrition
Eventual physical and Occupational Therapy
Patient would benefit from outpatient pulm evaluation-PFTs, probable inhalers, ongoing smoking cessation counseling and yearly low-dose lung cancer screening CT
Diagnostic data:
Chest x-ray 01/29/2023-blunting of both posterior sulci suggesting small bilateral pleural effusions, lungs otherwise clear
Hip x-ray 05/27/23-bilateral hip arthroplasties, periprosthetic fracture left side
CT head 05/27/23-no acute intracranial abnormalities, diffuse cortical atrophy
Subjective Data
-
Date of Service:
Date of Service: May 28, 2023
Chief Complaint: Pulmonary Follow Up and Dyspnea Follow Up
Subjective:
Denies any worsening shortness of breath, increased wheezing, chest congestion, productive cough, abdominal pain, continues to complain of hip pain
Review of Systems
General: Other (Per HPI)
Objective Data
Data Reviewed
Vital Signs / I&O:
Vital Signs
Temp Pulse Resp BP Pulse Ox
98.3 F 74 18 109/54 90
05/28/23 07:38 05/28/23 07:39 05/28/23 07:39 05/28/23 07:38 05/28/23 07:39
Intake and Output
05/27/23 05/28/23 05/29/23
06:59 06:59 06:59
Intake Total 540 / 540
Balance 540 / 540
SaO2: 90
Nasal Cannula flow liters per minute: 3
Physical Exam
General: Respiratory Distress (n) and Comfortable
HEENT: Normocephalic, Anicteric, Moist Mucous Membranes and Other (Temporal wasting)
Cardiovascular: Regular Rhythm
Respiratory: Wheeze (Few expiratory), Crackles ( few basilar), Rhonchi (n), Non-Labored Respirations, Accessory Resp Muscle Use (n) and Stridor (n)
GI: Soft, Non Distended and Non Tender
Neurology: Awake, Alert and No Motor Deficits
Skin: Warm, Good Color, Cyanosis (n) and Jaundice (n)
Labs/Micro/Reports
Lab Data
05/28/23 06:00
05/28/23 06:00
Laboratory Results
05/28/23
06:00
PT 17.4 H
INR 1.42
Microbiology
05/27/23 06:01 Nose MRSA Screen - Final
Staph aureus MRSA
[2023-05-28 11:30] LABS: Ammonia 80 umol/L (9-30)
--- NOTE | 2023-05-28 13:47 | W.PN.HOSP.TC ---
Today's Communication/Plan
-
Await OR
Consult GI for perioperative Cirrhosis management
Increase dose of Lacutlose
Assessment / Plan
Assessment / Plan
MS. 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
former alcohol use presents to the ER after a fall resulting in left lateral orbit laceration and left hip pain.
CT Head: no acute intracranial abnormality. No acute territorial infarct, hemorrhage, mass effect or midline shift. Mild microangiopathy and volume loss.
Periprosthetic left hip fracture
-Dr. Florentino planning on OR
-DVT PPx with SCD for now
-CW Pain regimen
-Pulm clearance eval noted
Laceration left lateral brow
-s/p suturing in ER
-head CT without acute bleed
Hx cirrhosis 2/2 alcohol use
chronic thrombocytopenia
Elevated NH3 with no HE clinically but mild asterexis noted
No Ascites or bleeding
- Increase lactulose ,cw Xifaximin
- MELD 10
- Consult GI for preop cirrhosis eval
- Watch for post op HE
-hold [employer] lasix/spironolactone for now preop
-
COPD
Chronic hypoxic respiratory failure on home O2
-[employer] inhalers
-Pulm clearance noted
Preop cardiac eval -patient with no history of prior coronary artery disease. CHD risk factors -0. Difficult to assess exercise tolerance which is limited by COPD. EKG sinus rhythm with no acute ST-T changes. With regards to her cardiovascular
risk she is at acceptable risk for proposed procedure. No additional testing would change the risk.
Depression/Anxiety
-[employer] Zoloft
-[employer] ativan PRN
DVT PPx SCD
FULL CODE
Total time spent on today's encounter was 52 minutes which included time spent in counseling the patient regarding diagnosis and treatment plan as listed above, goals of care, and symptom management. Case was discussed with nursing staff,
specialists, . All labs and imaging personally reviewed by me. Remainder the time spent in detailed review of previous records, lab data, imaging, and other medical provider documentation.
Anticipated Discharge: > 48 hours
Subjective/Interval History
-
Date of Service: May 28, 2023
Left hip pain mostly with movement otherwise she is okay.
Denies any shortness of breath or cough. She is on 2 L comfortable.
She is known to have cirrhosis and she is compliant with all rifaximin and lactulose. She initially had a good response to lactulose but lately she is saying it is not as effective. She is not having as many bowel movements and if she does not
have a bowel movement in 3 days she takes extra laxative.
She is noting some tremors at home.
Objective Data
-
Labs:
Laboratory Results
05/28/23
06:00
WBC 4.3 L
Hgb 10.8 L
Hct 34.0 L
Plt Count 76 L
PT 17.4 H
INR 1.42
Sodium 138
Potassium 4.2
Chloride 107
Carbon Dioxide 25
BUN 27 H
Creatinine 0.8
Glucose 89
Calcium 8.9
Vital Signs:
Vital Signs
Temp Pulse Resp BP Pulse Ox
98.3 F 74 18 109/54 90
05/28/23 07:38 05/28/23 07:39 05/28/23 07:39 05/28/23 07:38 05/28/23 09:47
I&O
05/27/23 05/28/23 05/29/23
06:59 06:59 06:59
Intake Total 540 / 540
Balance 540 / 540
Review of Systems
-
EENT: Denies Sore Throat
Respiratory: Denies Trouble Breathing
Cardiac: Denies Chest Pain
Abdomen/GI: Denies Abdominal Pain, Nausea or Vomiting
Neuro: Denies Dizzy
Physical Exam
-
General: No Apparent Distress
HEENT: Atraumatic
Respiratory: Clear to Auscultation and Non Labored Respirations; Negative Wheezes or Accessory Resp Muscle Use
Cardiac: Regular Rhythm and S1/S2
GI: Soft, Nontender, Nondistended and Normal Bowel Sounds
Neuro: AO x 3 and Tremors (mild asterexis)
Data Reviewed
-
Labs: Labs Reviewed by me
--- NOTE | 2023-05-28 14:23 | CON.GI ---
Consultation
-
Date/Time Consultation Performed: 05/28/23
Performing Provider: Enrique Hwang MD
Reason for Consultation: cirrhosis
Medical History
Chief Complaint / HPI
Chief Complaint: hip pain
History of Present Illness:
The patient is a 68-year-old female with past medical history as noted who presents after a fall. She has Fracture of a periprosthetic left hip. We are consulted for history of cirrhosis and risk stratification. The history is obtained from the
patient and her daughter, with longstanding history of cirrhosis, managed mostly where she had lived in [place] and [place] prior to moving here. She states that she did have endoscopy about 2 to 3 years ago that showed small varices though never
had any bleeding. She has had hepatic encephalopathy and is on lactulose and Xifaxan at home. If she misses lactulose then this precipitates her encephalopathy. She continues to be abstinent of alcohol now. She has had ascites in the past though
has not had any appreciable for some time, has not had any paracentesis. Currently she is feeling well, denies any significant abdominal pain, nausea or vomiting, fever, chills, melena or hematochezia. She did have some mild asterixis previously.
She did notice some pain in her inguinal area that resolved spontaneously.
Past Medical History
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
Past Surgical History: Other (Bilateral hip replacements)
Social History
Tobacco: Former Smoker
Alcohol: Former
Family History
Family History: Reviewed & Not Pertinent
Allergies / Home Medications
Allergy/AdvReac Type Severity Reaction Status Date / Time
No Known Allergies Allergy Verified 05/27/23 00:47
�Medication �Instructions �Recorded
furosemide 20 mg tablet 20 mg PO DAILY Fluid 01/29/23
Retention/Swelling
hydrocodone 5 mg-acetaminophen 325 1 tab PO [id number] PRN mild pain 01/29/23
mg tablet
lactulose 10 gram/15 mL oral 15 ml PO TID Liver Issues 01/29/23
solution
lorazepam 0.5 mg tablet 0.5 mg PO [id number] PRN anxiety 01/29/23
rifaximin 550 mg tablet (Xifaxan) 550 mg PO BID Liver Issues 01/29/23
acetaminophen 325 mg tablet 650 mg PO Q4HPRN PRN mild 05/27/23
(Tylenol) pain/temp>100F
bisacodyl 10 mg rectal suppository 10 mg [place] DAILY PRN if MOM 05/27/23
(Dulcolax (bisacodyl)) ineffective after 24 hrs
fluticasone fur. 100 mcg-umeclid 1 inh inhalation R DAILY breathing 05/27/23
62.5 mcg-vilant 25 mcg
inhalat.powder (Trelegy Ellipta)
gabapentin 400 mg capsule 400 mg PO TID Nerve pain 05/27/23
magnesium hydroxide 400 mg/5 mL 30 ml PO DAILY PRN if no BM in 3 05/27/23
oral suspension (Milk of Magnesia) days
melatonin 5 mg tablet 5 mg PO HS Sleep 05/27/23
polyethylene glycol 3350 17 gram 17 g PO DAILY PRN constipation 05/27/23
oral powder packet (Miralax)
sertraline 25 mg tablet 25 mg PO DAILY Mental 05/27/23
Health/Anxiety
sodium phosphates 19 gram-7 118 ml [place] DAILYPRN PRN if dulcolax 05/27/23
gram/118 mL enema (Fleet Enema) ineffective after 24 hrs
spironolactone 25 mg tablet 25 mg PO DAILY Fluid 05/27/23
Retention/Swelling
Review of Systems
-
All other systems: A 12 pt ROS was Negative except as stated above in HPI
Vital Signs
Temp Pulse Resp BP Pulse Ox
98.3 F 74 18 109/54 90
05/28/23 07:38 05/28/23 07:39 05/28/23 07:39 05/28/23 07:38 05/28/23 09:47
Physical Exam
Exam
General: NAD, alert and orient x 3
HEENT: MMM, anicteric, no lymphadenopathy
Heart: Regular, no murmurs
Lungs: CTA bilaterally
Abdomen: normal bowel sounds, soft, no tenderness, no rebound or guarding, no masses, bruits or appreciable ascites
Extremeties: no edema
Skin: no rashes
Results
WBC 4.3 10^3/uL (4.8-10.8) L 05/28/23 06:00
Hgb 10.8 g/dL (12.0-16.0) L 05/28/23 06:00
Hct 34.0 % (37.0-47.0) L 05/28/23 06:00
MCV 92.9 fL (81.0-99.0) 05/28/23 06:00
Plt Count 76 10^3/uL (130-400) L 05/28/23 06:00
Absolute Neuts (auto) 2.4 10^3/uL (1.4-6.5) 05/27/23 01:06
PT 17.4 Sec (11.4-14.6) H 05/28/23 06:00
INR 1.42 05/28/23 06:00
Sodium 138 mmol/L (135-145) 05/28/23 06:00
Potassium 4.2 mmol/L (3.5-5.1) 05/28/23 06:00
Chloride 107 mmol/L (98-107) 05/28/23 06:00
Carbon Dioxide 25 mmol/L (22-30) 05/28/23 06:00
BUN 27 mg/dl (7-17) H 05/28/23 06:00
Creatinine 0.8 mg/dL (0.6-1.0) 05/28/23 06:00
Calcium 8.9 mg/dl (8.4-10.2) 05/28/23 06:00
Total Bilirubin 0.8 mg/dl (0.2-1.3) 05/27/23 01:06
AST 40 U/L (14-36) H 05/27/23 01:06
ALT 24 U/L (0-35) 05/27/23 01:06
Alkaline Phosphatase 198 U/L (38-126) H 05/27/23 01:06
Diagnostic Image Results:
Prior GI Procedures:
EGD:
Colonoscopy:
Assessment / Plan
-
1. Cirrhosis: Secondary to previous alcohol, now abstinent for many years, decompensated with hepatic encephalopathy, mild ascites and small esophageal varices by report. Overall she has been doing well, with no appreciable ascites on exam on
low-dose diuretics at home. She does have encephalopathy which is worse if she misses her lactulose, with mildly elevated ammonia level and mild asterixis this admission, though is currently alert and oriented x 3. She wishes to establish care
here. At this point agree with increased lactulose dose and continue rifaximin. Will hold diuretics as there is not much appreciable ascites on exam now. Will check ultrasound and alpha-fetoprotein while she is here. In terms of her risk
stratification for surgery her Perkins vocal score predicts 9.7 30-day mortality and 15% risk of 90-day decompensation. She has tolerated multiple orthopedic procedures before, and if needed there are no GI contraindications but would continue
medications for hepatic encephalopathy and watch for other signs of decompensation postop.
-
-
Thank you for consultation and allowing me to participate in the patient's care. Please call the television agent GI physician during the after hours with any questions or concerns.
[2023-05-28 15:19] VITALS: BP 107/53
[2023-05-28] MEDS: DUPHALAC/CHRONULAC 20 GRAMS PO ×2 (15:49→21:43)
--- NOTE | 2023-05-28 15:51 | PN.CDI ---
CDI
- -
CDI:
Physician Documentation Request
Admit Date: 05/27/23 04:26
Dear Doctor Marino,
Clinical Indicators:
Height: 5 ft 3 in
Weight: 103 lbs 9.6 oz
BMI: 18.4
05/27 note/assessment:'BMI 18.4 underweight range'
If possible, please provide an associated diagnosis related to the abnormal BMI (< or = to 19.9), such as:
Underweight
BMI is not significant
Other, please specify
Use of terms such as suspected, likely, concern for, or probable (associated with a specific diagnosis that is being evaluated, monitored, or treated as if it exists) are acceptable and can be coded in the inpatient setting, when documented at the
time of discharge.
Thank you,
TRINITY Lew RN
CDI Specialist
available via tiger text
Please use your independent medical judgment in providing your response.
--- NOTE | 2023-05-28 15:55 | PN.CDI ---
CDI
- -
CDI:
Physician Documentation Request
Admit Date: 05/27/23 04:26
Dear Doctor Marino,
Clinical Indicators:
Patient admitted with periprosthetic left hip fracture.
4/5 PN, 'Hx cirrhosis 2/2 alcohol use chronic thrombocytopenia'
WBC, RBC, Plt count:
05/28/23
06:00
WBC 4.3 L
RBC 3.66 L
Plt Count 76 L
Based on the above, could you clarify in the progress notes, the appropriate diagnosis, if significant, that supports the above lab abnormalities and additional evaluation, monitoring and/or treatment rendered:
Pancytopenia
Thrombocytopenia only
Other, please specify
Use of terms such as suspected, likely, concern for, or probable (associated with a specific diagnosis that is being evaluated, monitored, or treated as if it exists) are acceptable and can be coded in the inpatient setting, when documented at the
time of discharge.
Thank you,
TRINITY Lew RN
CDI Specialist
available via tiger text
Please use your independent medical judgment in providing your response.
--- NOTE | 2023-05-28 16:01 | PN.CDI ---
CDI
- -
CDI:
Physician Documentation Request
Admit Date: 05/27/23 04:26
Dear Doctor Marino,
Clinical Indicators:
Patient admitted with periprosthetic left hip fracture; PMH includes cirrhosis.
4/5 PN, 'Elevated NH3 with no HE clinically but mild asterixis noted...Increase lactulose ,cw Xifaximin
Ammonia level:
05/28/23
11:12
Ammonia 80 H
Based on the above, could you clarify in the progress notes, the appropriate diagnosis, if significant, that supports the above abnormalities and additional evaluation, monitoring and/or treatment rendered:
Hyperammonemia
Elevated ammonia level only
Other
Use of terms such as suspected, likely, concern for, or probable (associated with a specific diagnosis that is being evaluated, monitored, or treated as if it exists) are acceptable and can be coded in the inpatient setting, when documented at the
time of discharge.
Thank you,
TRINITY Lew RN
CDI Specialist
available via tiger text
Please use your independent medical judgment in providing your response.
[2023-05-28 23:00] VITALS: BP 106/57
[2023-05-29] MEDS: NORCO 5/325 1 TABLET PO (01:34)
[2023-05-29 07:48] VITALS: BP 111/55
[2023-05-29] MEDS: SYMBICORT 80/4.5 MCG INHALER 2 PUFF INH (07:49)
[2023-05-29] MEDS: SPIRIVA RESPIMAT 2.5 MCG 2 PUFF INH (07:49)
[2023-05-29 09:00] LABS: Hematocrit 34.2 % (37.0-47.0); Hemoglobin 10.9 g/dL (12.0-16.0); Mean Corp Hgb Conc. 31.9 g/dL (33.0-37.0); Mean Corpuscular Hgb 29.6 pg (27.0-31.0); Mean Corpuscular Volume 92.9 fL (81.0-99.0); Mean Platelet Volume 11.2 fL (7.4-10.4); Platelet Count 78 10^3/uL (130-400); Red Blood Cell Count 3.68 10^6/uL (4.20-5.40); Red Cell Dist. Width 15.8 % (11.5-14.5); White Blood Cell Count 4.3 10^3/uL (4.8-10.8)
[2023-05-29 09:12] LABS: Ammonia 39 umol/L (9-30)
[2023-05-29 09:33] LABS: ALT (SGPT) 20 U/L (0-35); AST (SGOT) 32 U/L (14-36); Alkaline Phosphatase 124 U/L (38-126); Blood Urea Nitrogen 22 mg/dl (7-17); Carbon Dioxide 26 mmol/L (22-30); Chloride 105 mmol/L (98-107); Estimated Creatinine Clearance 55 ml/min; Glucose 89 mg/dl (70-99); Potassium 4.5 mmol/L (3.5-5.1); Sodium 136 mmol/L (135-145); Total Bilirubin 1.3 mg/dl (0.2-1.3); Total Protein 6.2 g/dl (6.3-8.2); eGFR > 60.00
[2023-05-29] MEDS: DUPHALAC/CHRONULAC 20 GRAMS PO ×3 (09:58→21:08)
[2023-05-29] MEDS: ALDACTONE 25 MG PO (09:58)
[2023-05-29] MEDS: NEURONTIN 400 MG PO ×3 (09:58→21:08)
[2023-05-29] MEDS: XIFAXAN 550 MG PO ×2 (09:59→21:07)
[2023-05-29] MEDS: ZOLOFT 25 MG PO (09:59)
[2023-05-29] MEDS: TYLENOL 650 MG PO (09:59)
--- NOTE | 2023-05-29 10:15 | W.PN.GI.CBS2 ---
Today's Communication / Plan
-
Please see assessment and plan for details.
Assessment / Plan
-
1. Cirrhosis: Secondary to previous alcohol, now abstinent for many years, decompensated with hepatic encephalopathy, mild ascites and small esophageal varices by report. Overall she has been doing well, with no appreciable ascites on exam on
low-dose diuretics at home. She does have encephalopathy which is worse if she misses her lactulose, with mildly elevated ammonia level and mild asterixis this admission, though is currently alert and oriented x 3. She wishes to establish care
here. At this point agree with increased lactulose dose and continue rifaximin. Will hold diuretics as there is not much appreciable ascites on exam now. Will check ultrasound and alpha-fetoprotein while she is here, ultrasound pending. In terms
of her risk stratification for surgery her Anam vocal score predicts 9.7 30-day mortality and 15% risk of 90-day decompensation. She has tolerated multiple orthopedic procedures before, and if needed there are no GI contraindications but would
continue medications for hepatic encephalopathy and watch for other signs of decompensation postop.
2. Constipation: Likely secondary to immobility from recent fracture. Will give enema today, continue lactulose and MiraLAX as needed.
Subjective
Subjective
Date of Service: May 29, 2023
Patient feeling well overall, somewhat less pain and hip. She does have some abdominal distention has not moved her bowels in about a week, though no severe pain, fever, chills, vomiting.
Objective
Data Reviewed
Laboratory Data:
Laboratory Results
05/29/23 08:10
05/29/23 08:10
Laboratory Results
PT 17.4 Sec (11.4-14.6) H 05/28/23 06:00
INR 1.42 05/28/23 06:00
Magnesium 1.7 mg/dl (1.6-2.3) 05/27/23 06:01
Total Bilirubin 1.3 mg/dl (0.2-1.3) 05/29/23 08:10
AST 32 U/L (14-36) 05/29/23 08:10
ALT 20 U/L (0-35) 05/29/23 08:10
Alkaline Phosphatase 124 U/L (38-126) 05/29/23 08:10
Vital Signs and I&O:
Vital Signs
Temp Pulse Resp BP Pulse Ox
98.6 F 69 18 111/55 91
05/29/23 07:48 05/29/23 07:55 05/29/23 07:55 05/29/23 07:48 05/29/23 07:55
I&O
05/28/23 05/29/23 05/30/23
06:59 06:59 06:59
Intake Total 540 / 540 940 / 940
Output Total 500 / 1050 550 / 550
Balance 540 / 540 440 / -110 -550 / -550
Physical Exam
Physical Exam
General: NAD
Abdomen: normal bowel sounds, soft, mild distention on the left side, no tenderness, no masses or bruits, no appreciable ascites
[2023-05-29 11:07] VITALS: BP 103/54; PULSE 66; O2SAT 96
[2023-05-29] MEDS: FLEET MINERAL OIL ENEMA 133 ML RECTAL (11:08)
[2023-05-29 15:00] VITALS: BP 105/47
--- NOTE | 2023-05-29 15:29 | W.PN.HOSP.TC ---
Today's Communication/Plan
-
see plan above
Assessment / Plan
Assessment / Plan
MS. 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
former alcohol use presents to the ER after a fall resulting in left lateral orbit laceration and left hip pain.
CT Head: no acute intracranial abnormality. No acute territorial infarct, hemorrhage, mass effect or midline shift. Mild microangiopathy and volume loss.
Periprosthetic left hip fracture
-Dr. Florentino had discussion with pt and daughter - plan is non operative tx -TTWB,PT tx and pain medication
-DVT PPx with SCD for now
-CW Pain regimen
-Pulm clearance eval noted
Laceration left lateral brow
-s/p suturing in ER
-head CT without acute bleed
Hx cirrhosis 2/2 alcohol use
chronic thrombocytopenia
Elevated NH3 with no HE clinically but mild asterexis noted
No Ascites or bleeding
- Increased lactulose ,cw Xifaximin
- MELD 10
- appt GI input on preop cirrhosis eval
-hold [employer]IL [employer]YER lasix/cw spironolactone
-
COPD
Chronic hypoxic respiratory failure on home O2
-TAIL [employer]YER inhalers
-Pulm clearance noted
Depression/Anxiety
-TAIL SAWYER Zoloft
-TAIL SAWYER ativan PRN
DVT PPx SCD
FULL CODE
DW daughter at bedside
Anticipated Discharge: Within 24 hours
Subjective/Interval History
-
Date of Service: May 29, 2023
Pain in the right upper thigh area with minimal movement of the leg.
Objective Data
-
Labs:
Laboratory Results
05/29/23
08:10
WBC 4.3 L
Hgb 10.9 L
Hct 34.2 L
Plt Count 78 L
Sodium 136
Potassium 4.5
Chloride 105
Carbon Dioxide 26
BUN 22 H
Creatinine 0.7
Glucose 89
Calcium 9.0
Total Bilirubin 1.3
AST 32
ALT 20
Alkaline Phosphatase 124
Vital Signs:
Vital Signs
Temp Pulse Resp BP Pulse Ox
98.6 F 69 18 111/55 91
05/29/23 07:48 05/29/23 07:55 05/29/23 07:55 05/29/23 07:48 05/29/23 07:55
I&O
05/28/23 05/29/23 05/30/23
06:59 06:59 06:59
Intake Total 540 / 540 940 / 940
Output Total 500 / 1050 550 / 550
Balance 540 / 540 440 / -110 -550 / -550
Review of Systems
-
Respiratory: Denies Trouble Breathing
Cardiac: Denies Chest Pain
Abdomen/GI: Denies Abdominal Pain, Nausea or Vomiting
Neuro: Denies Dizzy
Physical Exam
-
General: No Apparent Distress
HEENT: Moist Mucous Membranes
Respiratory: Clear to Auscultation; Negative Wheezes
Cardiac: Regular Rhythm and S1/S2
GI: Soft, Nontender and Nondistended
Musculoskeletal: Other (PROM in left thigh on minimal movement at hip or leg)
Neuro: AO x 3; Negative Tremors
Psych: Calm; Negative Confused or Agitated
Data Reviewed
-
Labs: Labs Reviewed by me
[2023-05-29] MEDS: DILAUDID 0.25 MG IV (16:10)
[2023-05-29] MEDS: FLUSH (NSS) 2 FLUSH IV (16:13)
[2023-05-29] MEDS: ROXICODONE 2.5 MG PO ×2 (18:11→21:11)
[2023-05-29 23:00] VITALS: BP 113/52
[2023-05-30 07:00] VITALS: BP 104/58
[2023-05-30] MEDS: XIFAXAN 550 MG PO ×2 (08:23→20:08)
[2023-05-30] MEDS: DUPHALAC/CHRONULAC 20 GRAMS PO ×3 (08:23→21:25)
[2023-05-30] MEDS: ALDACTONE 25 MG PO (08:23)
[2023-05-30] MEDS: ZOLOFT 25 MG PO (08:23)
[2023-05-30] MEDS: NEURONTIN 400 MG PO ×3 (08:24→21:25)
[2023-05-30] MEDS: ROXICODONE 2.5 MG PO ×4 (08:24→21:24)
--- NOTE | 2023-05-30 08:34 | W.PN.GI.CBS2 ---
Today's Communication / Plan
-
See assessment plan for details.
Assessment / Plan
-
1. Cirrhosis: Secondary to previous alcohol, now abstinent for many years, decompensated with hepatic encephalopathy, mild ascites and small esophageal varices by report. Overall she has been doing well, with no appreciable ascites on exam on
low-dose diuretics at home. She does have encephalopathy which is worse if she misses her lactulose, with mildly elevated ammonia level and mild asterixis this admission, though is currently alert and oriented x 3. She wishes to establish care
here. At this point agree with increased lactulose dose and continue rifaximin. Will hold diuretics as there is not much appreciable ascites on exam now though can restart on discharge. Ultrasound with out obvious mass, alpha-fetoprotein is
pending.
In terms of her risk stratification for surgery her Anam vocal score predicts 9.7 30-day mortality and 15% risk of 90-day decompensation. She has tolerated multiple orthopedic procedures before, and if needed there are no GI contraindications
but would continue medications for hepatic encephalopathy and watch for other signs of decompensation postop.
2. Constipation: Likely secondary to immobility from recent fracture, better after enema, continue lactulose and MiraLAX.
We will follow-up in the office in 3 months, we will sign off for now, please call back with any further questions.
Subjective
Subjective
Date of Service: May 30, 2023
Patient feeling well overall, some improved pain in her hip, did have bowel movement after enema. Abdominal pain, nausea or vomiting.
Objective
Data Reviewed
Laboratory Data:
Laboratory Results
05/29/23 08:10
05/29/23 08:10
Laboratory Results
PT 17.4 Sec (11.4-14.6) H 05/28/23 06:00
INR 1.42 05/28/23 06:00
Magnesium 1.7 mg/dl (1.6-2.3) 05/27/23 06:01
Total Bilirubin 1.3 mg/dl (0.2-1.3) 05/29/23 08:10
AST 32 U/L (14-36) 05/29/23 08:10
ALT 20 U/L (0-35) 05/29/23 08:10
Alkaline Phosphatase 124 U/L (38-126) 05/29/23 08:10
Vital Signs and I&O:
Vital Signs
Temp Pulse Resp BP Pulse Ox
99.0 F 93 18 104/58 92
05/30/23 07:00 05/30/23 07:00 05/30/23 07:00 05/30/23 07:00 05/30/23 07:00
I&O
05/29/23 05/30/23 05/31/23
06:59 06:59 06:59
Intake Total 940 / 940 1190 / 1190
Output Total 500 / 1050 900 / 900
Balance 440 / -110 290 / 290
Physical Exam
Physical Exam
General: NAD
Abdomen: normal bowel sounds, soft, no tenderness, no masses or bruits, no ascites
[2023-05-30] MEDS: NON-FORMULARY ITEM 1 INH INH (08:47)
--- NOTE | 2023-05-30 10:38 | W.PN.HOSP.TC ---
Addendum entered and electronically signed by Bg Pichardo MD 06/02/23 19:15:
hyperammonemia noted on this admission
Pancytopenia as well noted
BMI 18.4 suggestive of underweight
Original Note:
Today's Communication/Plan
-
DC planning
Assessment / Plan
Assessment / Plan
MS. 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
former alcohol use presents to the ER after a fall resulting in left lateral orbit laceration and left hip pain.
CT Head: no acute intracranial abnormality. No acute territorial infarct, hemorrhage, mass effect or midline shift. Mild microangiopathy and volume loss.
Periprosthetic left hip fracture
-Dr. Florentino had discussion with pt and daughter - plan is non operative tx -TTWB,PT tx and pain medication
-DVT PPx with SCD for now
-CW Pain regimen
Laceration left lateral brow
-s/p suturing in ER
-head CT without acute bleed
Hx cirrhosis 2/2 alcohol use
chronic thrombocytopenia
Elevated NH3 with no HE clinically but mild asterexis noted
No Ascites or bleeding
- Increased lactulose ,cw Xifaximin
- MELD 10
- appt GI input on preop cirrhosis eval
-hold PERSONAL ASSISTANT lasix/cw spironolactone
- No ascites on US abdomen
- Watch for constipation with pain medication
COPD
Chronic hypoxic respiratory failure on home O2
-PERSONAL ASSISTANT inhalers
-Pulm clearance noted
Depression/Anxiety
-PERSONAL ASSISTANT Zoloft
-PERSONAL ASSISTANT ativan PRN
DVT PPx SCD
FULL CODE
DW daughter at bedside 05/28
if patient continues to improve with regards to the pain and able to participate with PT ,DC in a.m. back to rehab.
Anticipated Discharge: Within 24 hours
Subjective/Interval History
-
Date of Service: May 30, 2023
Some improvement in the left thigh pain with introduction of scheduled oxycodone and as needed oxycodone and Dilaudid.
Denies nausea vomiting.
Denies confusion.
Denies shortness of breath
Objective Data
-
Vital Signs:
Vital Signs
Temp Pulse Resp BP Pulse Ox
99.0 F 85 16 104/58 90
05/30/23 07:00 05/30/23 08:50 05/30/23 08:50 05/30/23 07:00 05/30/23 08:50
I&O
05/29/23 05/30/23 05/31/23
06:59 06:59 06:59
Intake Total 940 / 940 1190 / 1190
Output Total 500 / 1050 900 / 900
Balance 440 / -110 290 / 290
Review of Systems
-
Constitutional: Denies Fever
Respiratory: Denies Cough
Cardiac: Denies Chest Pain
Neuro: Denies Dizzy
Physical Exam
-
General: No Apparent Distress
HEENT: Moist Mucous Membranes
Respiratory: Clear to Auscultation
Cardiac: Regular Rhythm and S1/S2
GI: Soft, Nontender, Nondistended and Normal Bowel Sounds
Neuro: AO x 3; Negative Tremors
Psych: Calm; Negative Confused
[2023-05-30 15:00] VITALS: BP 103/53
[2023-05-30 16:12] VITALS: BP 115/61; PULSE 82; O2SAT 93
[2023-05-31 07:00] VITALS: BP 106/51
[2023-05-31] MEDS: NON-FORMULARY ITEM 1 INH INH (07:46)
[2023-05-31 08:14] VITALS: BMI 18.4
[2023-05-31] MEDS: ZOLOFT 25 MG PO (08:32)
[2023-05-31] MEDS: ROXICODONE 2.5 MG PO ×3 (08:32→17:17)
[2023-05-31] MEDS: NEURONTIN 400 MG PO ×2 (08:32→17:17)
[2023-05-31] MEDS: XIFAXAN 550 MG PO (08:32)
[2023-05-31] MEDS: ALDACTONE 25 MG PO (08:32)
[2023-05-31] MEDS: DUPHALAC/CHRONULAC 20 GRAMS PO ×2 (08:33→17:17)
--- NOTE | 2023-05-31 10:48 | CM ---
Addendum entered by Sheron Stratton 05/31/23 14:50:
Pt transport arranged for 6:30PM
LM on VM of daughter notifying her of pt d/c and time of transport
Notified Odalys at [facility] of transport time
Plan - d/c to [facility]
P - [phone]
F - [phone]
Addendum entered by Sheron Stratton 05/31/23 13:17:
Pt medically ready per MD
Spoke with Odalys at [facility] - can accept today
Original Note:
Case management following for d/c planning
PT recs SNF - referral sent in care port
CM will follow for d/c planning
Plan - return to [facility] - for snf, when medically stable
--- NOTE | 2023-05-31 14:07 | W.DS.TRANS ---
DC Summary - [employer]
-
Discharge Instructions:
Sleep Apnea Risk Low
Discharge Diagnosis/Procedures Left periprostetic hip fracture.
Diet Regular
Instructions:
Stand-Alone Forms:
Changes to Home Medications: No
Discharge Medications:
DC Medications w/original date entered in [facility]
furosemide 20 mg tablet 20 mg PO DAILY Fluid Retention/Swelling 01/29/23
lactulose 10 gram/15 mL oral solution 15 ml PO TID Liver Issues 01/29/23
rifaximin 550 mg tablet (Xifaxan) 550 mg PO BID Liver Issues 01/29/23
bisacodyl 10 mg rectal suppository (Dulcolax (bisacodyl)) 10 mg [place] DAILY PRN if MOM ineffective after 24 hrs 05/27/23
fluticasone fur. 100 mcg-umeclid 62.5 mcg-vilant 25 mcg inhalat.powder (Trelegy Ellipta) 1 inh inhalation R DAILY breathing 05/27/23
gabapentin 400 mg capsule 400 mg PO TID Nerve pain 05/27/23
magnesium hydroxide 400 mg/5 mL oral suspension (Milk of Magnesia) 30 ml PO DAILY PRN if no BM in 3 days 05/27/23
melatonin 5 mg tablet 5 mg PO HS Sleep 05/27/23
polyethylene glycol 3350 17 gram oral powder packet (Miralax) 17 g PO DAILY PRN constipation 05/27/23
sertraline 25 mg tablet 25 mg PO DAILY Mental Health/Anxiety 05/27/23
sodium phosphates 19 gram-7 gram/118 mL enema (Fleet Enema) 118 ml [place] DAILYPRN PRN if dulcolax ineffective after 24 hrs 05/27/23
spironolactone 25 mg tablet 25 mg PO DAILY Fluid Retention/Swelling 05/27/23
hydrocodone 5 mg-acetaminophen 325 mg tablet 1 tab PO [id number] PRN mild pain #10 tabs 05/31/23
lorazepam 0.5 mg tablet 0.5 mg PO [id number] PRN anxiety #10 tabs 05/31/23
Home Medication Changes
Pending Results: No
[2023-05-31 15:00] VITALS: BP 114/57
[2023-05-31 18:54] LABS: AFP Male/Tumor Marker 1.93 ng/ml
== END 2023-05-31 19:07 | DRG 560 ==
LOC: 3 WEST ACU 04:26
PROVIDERS: Clinical Nurse Specialist Family Health; Internal Medicine; ADMITTING PHYSICIAN Student in an Organized Health Care Education/Training Program; ATTENDING PHYSICIAN Internal Medicine; CONSULT PHYSICIAN Internal Medicine Critical Care Medicine; CONSULT PHYSICIAN Internal Medicine Gastroenterology; CONSULT PHYSICIAN Orthopaedic Surgery; EMERGENCY PHYSICIAN Emergency Medicine; FAMILY PHYSICIAN Internal Medicine
DX: M97.02XA Periprosthetic fracture around internal prosthetic left hip joint, initial encounter (principal); D61.818 Other pancytopenia; E87.1 Hypo-osmolality and hyponatremia; J96.11 Chronic respiratory failure with hypoxia; E72.20 Disorder of urea cycle metabolism, unspecified; Z68.1 Body mass index [BMI] 19.9 or less, adult; S01.81XA Laceration without foreign body of other part of head, initial encounter; W01.0XXA Fall on same level from slipping, tripping and stumbling without subsequent striking against object, initial encounter; J44.9 Chronic obstructive pulmonary disease, unspecified; I48.91 Unspecified atrial fibrillation; K74.69 Other cirrhosis of liver; G62.9 Polyneuropathy, unspecified; F41.9 Anxiety disorder, unspecified; F32.A Depression, unspecified; D69.6 Thrombocytopenia, unspecified; R63.6 Underweight
CPT/HCPCS: 12011; 70450; 73502; 76700; 80048; 80053; 82105; 82140; 83735; 85025; 85027; 85610; 86850; 86900; 86901; 87070; 87147; 93005; 94640; 97163; 97530; 99285

== ENCOUNTER → 2023-06-23 11:08 | Outpatient (REF) | payer MEDICARE, MEDICAID, SELFPAY | LOC: RAD 11:08 | PROVIDERS: ATTENDING PHYSICIAN Orthopaedic Surgery | DX: M97.02XA Periprosthetic fracture around internal prosthetic left hip joint, initial encounter (principal); M79.652 Pain in left thigh | CPT/HCPCS: 73700 ==

== ENCOUNTER 2023-08-14 16:12 | Inpatient (IN) | payer MEDICARE, OTHER, SELFPAY ==
[2023-08-14] VITALS (9 sets, daily range): BP systolic 97–113; BP diastolic 52–61; BMI 19.9
[2023-08-14 12:00] LABS: % Basophils 0.4 % (0-2); % Eosinophils 0.6 % (0-6); % Immature Granulocytes 0.4 % (0-0.5); % Lymphocytes 12.8 % (20.5-51.1); % Monocytes 14.7 % (1.7-9.3); % Neutrophils 71.1 % (42.2-75.2); Absolute Lymphocytes 0.7 10^3/uL (1.2-3.4); Absolute Monocytes 0.8 10^3/uL (0.1-0.6); Absolute Neutrophils 3.7 10^3/uL (1.4-6.5); Hematocrit 33.9 % (37.0-47.0); Hemoglobin 10.8 g/dL (12.0-16.0); Mean Corp Hgb Conc. 31.9 g/dL (33.0-37.0); Mean Corpuscular Hgb 28.1 pg (27.0-31.0); Mean Corpuscular Volume 88.3 fL (81.0-99.0); Mean Platelet Volume 10.8 fL (7.4-10.4); Nucleated Red Blood Cells % 0 %; Platelet Count 102 10^3/uL (130-400); Red Blood Cell Count 3.84 10^6/uL (4.20-5.40); Red Cell Dist. Width 14.6 % (11.5-14.5); White Blood Cell Count 5.2 10^3/uL (4.8-10.8)
[2023-08-14 12:12] LABS: ALT (SGPT) 16 U/L (0-35); AST (SGOT) 30 U/L (14-36); Albumin 3.3 g/dl (3.5-5.0); Alkaline Phosphatase 206 U/L (38-126); Blood Urea Nitrogen 21 mg/dl (7-17); Calcium 9.1 mg/dl (8.4-10.2); Carbon Dioxide 23 mmol/L (22-30); Chloride 103 mmol/L (98-107); Glucose 106 mg/dl (70-99); Potassium 4.4 mmol/L (3.5-5.1); Sodium 134 mmol/L (135-145); Total Bilirubin 1.2 mg/dl (0.2-1.3); Total Protein 6.8 g/dl (6.3-8.2); eGFR > 60.00
--- NOTE | 2023-08-14 12:38 | ED.GENMED ---
History of Present Illness
General
Chief Complaint: Cough
Source: patient
Exam Limitations: none
Time Seen by Provider: 08/14/23 12:06
Nursing documentation reviewed up to this point in time: agreed with except (She does not have abdominal pain, she has left lower rib pain, worse with cough)
History of Present Illness
History of Present Illness:
68-year-old female with history of A-fib, COPD with 3 L nasal cannula home O2, cirrhosis of the liver, presents from [facility] stating she's had a cough for weeks, Pain in in left lower ribs, worse with cough. Denies fever/chills,
denies abdominal pain. Denies n/v/c/d. States they 'used to give me breathing treatments but they stopped.'
Past History
Past History
ED Past Medical History: Arrthythmia (Atrial fibrillation), COPD, Other (cirrhosis of liver) and Other (neuropathy)
ED Past Surgical History: Orthopedic
Review of Systems
Review of Systems
Allergies reviewed?: Yes
All Other Systems: ROS reviewed and negative except as documented in HPI and ROS
Constitutional: Denies fever
Respiratory: Reports trouble breathing (No more than her usual)
Cardiac: Reports chest pain (Points to left lower rib cage); Denies diaphoresis or palpitations
ABD/GI: Denies abdominal pain, nausea, vomiting, diarrhea or constipated
: Denies dysuria or difficulty voiding
Musculoskeletal: Denies edema
Skin: Reports no symptoms
Neurological: Reports no symptoms
Phy Exam
Physical Exam
Physical Exam:
GENERAL: No acute distress. A&Ox3. Cachectic
CONSTITUTIONAL: Afebrile.
EYES: PERRL, conjunctivae normal
Neck: Supple
ENMT: moist mucus membranes, Pharynx nl
RESPIRATORY: Regular respirations, mildly labored, prolonged expiratory phase with end expiratory low pitched wheezes.intermittent dry hacking cough
CARDIOVASCULAR: Regular rate and rhythm, no murmurs, no rubs.
GI: Soft, nontender, normal BS
MUSCULOSKELETAL: Moves with ease. Well perfused.
SKIN: Warm, dry, pink
PSYCH: Normal mood and affect. Well kept, interactive and appropriate
NEUROLOGIC: Awake, alert and oriented. No focal neurological deficits
Course
Orders/Labs/Results
Orders:
Orders
08/14/23 11:30
Electrocardiogram (*1) Urgent
Reason for Study: Abdominal Pain
EKG- Treatment ONCE
CXR2 [CR Chest - 2 Views ] Urgent
Comment:
Reason For Exam: cough
08/14/23 11:42
CMP [Comprehensive Metabolic Panel] Urgent
Complete Blood Count/With Diff Urgent
08/14/23 13:01
Electrocardiogram (*1) Urgent
Reason for Study: Shortness of Breath
EKG- Treatment ONCE
08/14/23 13:10
NT-proBNP Urgent
Troponin I Urgent
08/14/23 13:25
Ipratropium/Albuterol Sulfate [Duoneb] 3 ml INH R NOW STA
08/14/23 13:28
COVID-19 Antigen Urgent
Source: Nasal Swab
08/14/23 Dinner
Cholesterol Lowering
At Your Request: Full Participation
Does patient need a safe tray?: No
Cholesterol Lowering: Sodium, 2 Gram
08/14/23 15:06
Cefepime HCl [Maxipime] 2,000 mg IV NOW STA
Vancomycin [Vancocin] 1,500 mg 0.9% Sodium Chloride [Nss] 20 ml 0.9% Sodium Chloride 250 ml [Nss] 250 ml IV NOW
08/14/23 15:39
Vancomycin [Vancocin] 1,500 mg 0.9% Sodium Chloride [Nss] 20 ml 0.9% Sodium Chloride 250 ml [Nss] 250 ml IV NOW
08/14/23 15:41
Admit/Transfer Patient As Directed
Co-Sign Provider:
Level of Care: Inpatient admission
Assign to:: Telemetry
Physician / Group: Dr. Fisher
Diagnosis: COPD/pneumonia
Reason for Telemetry: Arrhythmia
Date to Stop Telemetry: 08/17/23
Time to Stop Telemetry: 11:00
Reason for Hospitalization: Patient presented with shortness of breath and cough. Found to have pneumonia.
Expected length of stay greater than two midnights?: Yes
ELOS- Estimated Length of Stay in days: 2
I certify the patient meets the requirements for IP care: Yes
08/14/23 15:43
Code Status As Directed
Resuscitation Status: Full Code
08/14/23 15:45
Azithromycin [Zithromax] 500 mg PO NOW STA
08/14/23 15:46
Dexamethasone Sod Phosphate [Decadron] 4 mg IV NOW STA
08/14/23 15:48
PULMONARY CONSULT Routine
Consulting Provider: Germain Claros
Was physician already notified: Yes
Reason for consult: copd/pna eval
Legionella Urinary Antigen Routine
ANTONIO Source: Urine
Specimen Description:
Sputum Culture [Respiratory Culture/Gram Stain] Routine
ANTONIO Source: Sputum
Specimen Description:
Strep pneumoniae Antigen Routine
ANTONIO Source: Urine
Specimen Description:
08/14/23 16:00
Ipratropium/Albuterol Sulfate [Duoneb] 3 ml INH R QID
08/14/23 16:14
Blood Culture Q30M
ANTONIO Source: Blood/Venous
Specimen Description:
08/14/23 16:35
Blood Culture Q30M
ANTONIO Source: Blood/Venous
Specimen Description:
08/14/23 16:50
Bisacodyl [Dulcolax] 10 mg RECTAL [id number] PRN
Docusate W/Senna [Senokot-S] 1 tablet PO BIDPRN PRN
Hydrocodone 5/APAP 325 [[place] 5/325] 1 tablet PO [id number] PRN
Lorazepam [Ativan] 0.5 mg PO Q19MUOD PRN
Polyethylene Glycol Powder [Miralax] 17 grams PO DAILYPRN PRN
08/14/23 16:50
Activity As Directed
Activity Level: Out of Bed-Early Mobility
Vital Signs As Directed
Frequency: Per unit guidelines
DX Deep Vein Thrombosis Video Routine
08/14/23 18:00
Enoxaparin Sodium [Lovenox] 40 mg SC QPM
08/14/23 20:00
Fluticasone/Salmeterol 45/21 [Advair Hfa 45/21 Mcg Inhaler] 2 puff INH R BID
Rifaximin [Xifaxan] 550 mg PO BID
Ursodiol [Actigall] 300 mg PO BID
08/14/23 22:00
Gabapentin [Neurontin] 400 mg PO TID
Lactulose [Duphalac/Chronulac] 10 grams PO TID
Melatonin 5 mg PO HS
08/14/23 23:59
Cefepime HCl [Maxipime] 1,000 mg IV Q8H
08/15/23 06:00
Complete Blood Count/With Diff IN AM
Comprehensive Metabolic Panel IN AM
08/15/23 08:00
Azithromycin [Zithromax] 250 mg PO DAILY
Dexamethasone Sod Phosphate [Decadron] 4 mg IV Q12H
Furosemide [Lasix] 20 mg PO DAILY
Sertraline HCl [Zoloft] 25 mg PO DAILY
Spironolactone [Aldactone] 25 mg PO DAILY
Tiotropium [place] 2.5 Mcg [Spiriva Respimat 2.5 Mcg] 2 puff INH R DAILY
08/17/23 11:00
DC Protocol for Telemetry ONCE
Abnormal Lab Results
08/14/23
11:42
RBC 3.84 L 10^6/uL
(4.20-5.40)
Hgb 10.8 L g/dL
(12.0-16.0)
Hct 33.9 L %
(37.0-47.0)
MCHC 31.9 L g/dL
(33.0-37.0)
RDW 14.6 H %
(11.5-14.5)
Plt Count 102 L 10^3/uL
(130-400)
MPV 10.8 H fL
(7.4-10.4)
Absolute Lymphs (auto) 0.7 L 10^3/uL
(1.2-3.4)
Absolute Monos (auto) 0.8 H 10^3/uL
(0.1-0.6)
Lymphocytes % 12.8 L %
(20.5-51.1)
Monocytes % 14.7 H %
(1.7-9.3)
Sodium 134 L mmol/L
(135-145)
BUN 21 H mg/dl
(7-17)
Glucose 106 H mg/dl
(70-99)
Alkaline Phosphatase 206 H U/L
(38-126)
Albumin 3.3 L g/dl
(3.5-5.0)
08/14/23 11:42
08/14/23 11:42
Vital Signs
Initial and Last Documented VS:
Initial Vital Signs
Temp Pulse Resp BP Pulse Ox
98.7 F 89 13 97/60 93
08/14/23 11:14 08/14/23 11:14 08/14/23 11:14 08/14/23 11:14 08/14/23 11:14
Last Documented Vital Signs
Temp Pulse Resp BP Pulse Ox
99.5 F 89 22 97/53 91
08/14/23 17:13 08/14/23 17:13 08/14/23 17:13 08/14/23 17:13 08/14/23 17:13
MDM/Problems Addressed
Differential Diagnosis Includes:
COPD exacerbation, pneumonia, ACS
MDM/Problems Addressed:
68-year-old female with history of A-fib, COPD with 3 L nasal cannula home O2, cirrhosis of the liver, presents from [facility] stating she's had a cough for weeks, Pain in in left lower ribs, worse with cough. Denies fever/chills,
denies abdominal pain. Denies n/v/c/d. States they 'used to give me breathing treatments but they stopped.'
EKG: NSR, no change
2:15 PM
CBC with no clinically significant abnormality
CMP with no clinically significant abnormality
COVID-negative
Troponin within normal limits
BNP within normal limits
Chest x-ray: Radiology report read:IMPRESSION:
New findings suggesting a developing mild right lower lobe and probable right upper lobe pneumonia
Plan: Admit for pneumonia, COPD
Chronic conditions affecting care: COPD
*EKG
EKG Intrepretation Date: 08/14/23
Interpretation: normal
Comparison EKG: no changes
Rate: normal
Rhythm: sinus
Rocky: normal axis
Interval: normal interval
QRS Pattern: normal QRS
Ischemia: no ischemia
*Critical Care Note
Total Time (30-74mins, 75-104mins- exclusive of procedures): Not Applicable
ED Attending Note
-
Portions of this chart may have been created with voice recognition software.� Occasional wrong word or��sound alike� substitutions may have occurred due to the inherent limitations of voice recognition software.
Discharge Plan
Departure
Patient Disposition: Admit
Date of Disposition: 08/14/23
Time of Disposition: 15:08
Presentation/result/management discussed w/ accepting MD/DO: Hospitalist
Condition: Fair
Covid-19: Negative COVID-19
Discharge Problem:
Pneumonia, COPD (chronic obstructive pulmonary disease)
Interventions
Interventions:
*Risk Screen - Suicide Last Done: 08/14/23 11:22
*General Assessment Last Done: 08/14/23 11:22
*Neglect/Abuse Screening Last Done: 08/14/23 11:22
ED- Fall Risk Assessment Last Done: 08/14/23 16:43
*ED COVID-19 Vaccine History Last Done: 08/14/23 11:22
*Nursing Disposition Last Done: 08/14/23 16:43
ED- Pulmonary Assessment Last Done: 08/14/23 11:22
Discharge Date and Time
Discharge Date/Time: 08/14/23 16:44
[2023-08-14] MEDS: DUONEB 3 ML INH ×2 (13:30→18:01)
[2023-08-14 13:44] LABS: NT-proBNP 329 pg/ml; Troponin I < 0.012 ng/ml
[2023-08-14 13:54] LABS: COVID-19 Antigen Negative (Negative)
--- NOTE | 2023-08-14 15:16 | HPS.HSE ---
Family Physician
-
Family Physician: Douglas Conner
Chief Complaint
-
Shortness of breath and cough
History of Present Illness
Patient is 68 years old female history of COPD, cirrhosis, chronic hypoxic respiratory failure on home oxygen, came into the hospital with shortness of breath and increased cough. Patient tells me she has not been well for the last 2 days. She has
noticed some increasing shortness of breath and cannot take deep breath over the last couple days associated with some increasing cough and no sputum production. Cough has been going on for longer period of time. No fevers or chills. Her
oxygenation has been increased from 3 L to 4 L. No nausea vomiting or diarrhea. In the ER, WBC 5.2 and chest x-ray new findings mild right lower lobe and probable right upper lobe pneumonia. ER ordered some antibiotic and she was referred to
hospitalist service for further evaluation
Medical History
Past Medical History
Past Medical History: Reports Other (COPD, chronic home oxygen on 3 L, alcoholic cirrhosis, history of hepatic encephalopathy depression anxiety, peripheral neuropathy, hyponatremia)
Past Surgical History: Reports Other (Left hip replacement 2022, right hip replacement 2021.)
Social History
Tobacco: Former Smoker
Alcohol: Former
Drug: None
Family History
Family History: Not pertinent
Allergies / Home Medications
Allergies reflects when Allergies were last updated in [facility].
Home Medications with original date entered in [facility]
Allergy/Medication List:
Allergies
Allergy/AdvReac Type Severity Reaction Status Date / Time
No Known Allergies Allergy Verified 08/14/23 11:21
Home Medications
furosemide 20 mg tablet 20 mg PO DAILY Fluid Retention/Swelling 01/29/23
lactulose 10 gram/15 mL oral solution 15 ml PO TID Liver Issues 01/29/23
rifaximin 550 mg tablet (Xifaxan) 550 mg PO BID Liver Issues 01/29/23
bisacodyl 10 mg rectal suppository (Dulcolax (bisacodyl)) 10 mg DE DAILYPRN PRN if MOM ineffective after 24 hrs 05/27/23
gabapentin 400 mg capsule 400 mg PO TID Nerve pain 05/27/23
magnesium hydroxide 400 mg/5 mL oral suspension (Milk of Magnesia) 30 ml PO DAILYPRN PRN if no BM in 3 days 05/27/23
melatonin 5 mg tablet 5 mg PO HS Sleep 05/27/23
polyethylene glycol 3350 17 gram oral powder packet (Miralax) 17 g PO DAILYPRN PRN constipation 05/27/23
sertraline 25 mg tablet 25 mg PO DAILY Mental Health/Anxiety 05/27/23
spironolactone 25 mg tablet 25 mg PO DAILY Fluid Retention/Swelling 05/27/23
hydrocodone 5 mg-acetaminophen 325 mg tablet 1 tab PO [id number] PRN mild pain #10 tabs 05/31/23
lorazepam 0.5 mg tablet 0.5 mg PO [id number] PRN anxiety #10 tabs 05/31/23
acetaminophen 325 mg tablet (Tylenol) 650 mg PO Q4HPRN PRN mild pain 08/14/23
fluticasone 100 mcg-salmeterol 50 mcg/dose blistr powdr for inhalation (Advair Diskus) 1 inh inhalation R DAILY 08/14/23
ketoconazole 2 % shampoo 1 applic topical MOTH 08/14/23
sodium phosphates 19 gram-7 gram/118 mL enema (Fleet Enema) 118 ml DE DAILYPRN PRN if no bm aftr dulcolax 08/14/23
umeclidinium 62.5 mcg/actuation blister powder for inhalation (Incruse Ellipta) 1 inh inhalation R DAILY 08/14/23
ursodiol 300 mg capsule 300 mg PO BID 08/14/23
Review of Systems
-
A 12 point ROS was completed and negative except as noted: Yes
Physical Exam
Vital Signs
Vital Signs
Temp Pulse Resp BP Pulse Ox
98.7 F 88 15 111/61 90
08/14/23 11:14 08/14/23 12:00 08/14/23 12:00 08/14/23 15:00 08/14/23 15:00
Physical exam:
General: Acutely ill
HEENT: Normocephalic, Atraumatic and Moist Mucous Membranes
Respiratory: Decreased breath sounds bilateral; few wheezes, no Rales or Rhonchi
Cardiac: Regular Rhythm and S1/S2
GI: Soft, Nontender and Nondistended
Musculoskeletal: No Clubbing, No Cyanosis and No Edema
Neuro: Awake, Alert and Oriented
Psych: Calm
Physical Exam
General: Other
Laboratory Results
-
08/14/23 11:42
08/14/23 11:42
Laboratory Results
Total Bilirubin 1.2 mg/dl (0.2-1.3) 08/14/23 11:42
AST 30 U/L (14-36) 08/14/23 11:42
ALT 16 U/L (0-35) 08/14/23 11:42
Alkaline Phosphatase 206 U/L (38-126) H 08/14/23 11:42
Troponin I < 0.012 ng/ml 08/14/23 13:10
Data Reviewed
-
Diagnostic Radiology: Image Personally Visualized and interpreted
Lab Data: Labs Reviewed by me
Impression/Plan
-
IMPRESSION:
Patient 68 years old female history of cirrhosis, COPD, chronic respiratory failure on home oxygen presented to the hospital with cough and shortness of breath and found to have worsening respiratory failure presumably due to COPD and or pneumonia.
Patient at risk morbidity mortality given presentation and multiple comorbidities therefore needs to be treated in the hospital and manage accordingly.
PLAN:
Acute on chronic hypoxic respiratory failure:
Oxygen supplementation
Steroids and antibiotic
Monitor respiratory status closely
Pulmonary consult (Watson texted pulmonary today)
Pneumonia:
Seen and reviewed chest x-ray
Blood cultures
Check sputum culture
Check strep and Legionella
IV cefepime and azithromycin
COPD with probable exacerbation:
IV steroids, dexamethasone 4 mg IV every 12 hours
Bronchodilators, DuoNebs 4 times daily
Monitor respiratory status and bronchospasm closely
Cirrhosis:
Continue home diuretics and lactulose and Xifaxan
Monitor mental status
Depression anxiety:
Continue sertraline and lorazepam
Monitor mental status and behavior
Chronic pain/narcotic dependence:
Continue home narcotics but cautiously monitor
Continue gabapentin
Mild pancytopenia due to cirrhosis:
Monitor CBC
No signs of bleeding
DVT prophylaxis:
Lovenox for milligrams SQ
Monitor hemoglobin and platelet count (not prohibitive at the moment)
CODE STATUS:
Full code
Time spent 75 minutes with patient care
[2023-08-14] MEDS: MAXIPIME 2000 MG IV (15:40)
[2023-08-14] MEDS: VANCOCIN 300 MG IV (16:10)
[2023-08-14] MEDS: VANCOCIN 300 ML IV (16:10)
--- NOTE | 2023-08-14 16:16 | CON.PUL ---
Consultation
Consultation Request
Date/Time Consultation Requested: 08-14-23
Date/Time Consultation Performed: 08-14-23
Requesting Provider: Hospitalist Idalmis
Performing Provider: Dr Claros
Reason for Consultation: dyspnea
Medical History
-
Chief Complaint: dyspnea
History of Present Illness:
Mrs Sarah Koch is a 68/W adm 08-13 [place] with few wk h/o dyspnea and productive cough, worsening for last 2-3 d [employer].
Denies CP, fever, n/v/d. On chronic O2 for severe COPD at 3LPM, recently increased to 4L.
At ER. afebrile, low normal BP, CXR reported suspicious for developing pneumonia, started on atbs.
Seen at [facility], having dinner, poor historian, appears in trace dyspnea, presents mild 'wet' cough
Past Medical History
Past Medical History: Other (see A&P for PMH/PSH)
Social History
Tobacco: Former Smoker
Alcohol: None
Drug: None
Living: Longterm
Employment: Not Employed
Family History
Family History: Other (M, F, Bro: from alcoholism)
Allergies / Home Medications
Allergies
Allergy/AdvReac Type Severity Reaction Status Date / Time
No Known Allergies Allergy Verified 08/14/23 11:21
Home Medications
�Medication �Instructions �Recorded �Confirmed �Last Taken �Type
furosemide 20 mg tablet 20 mg PO DAILY Fluid 01/29/23 08/14/23 Unknown History
Retention/Swelling
lactulose 10 gram/15 mL oral 15 ml PO TID Liver Issues 01/29/23 08/14/23 Unknown History
solution
rifaximin 550 mg tablet (Xifaxan) 550 mg PO BID Liver Issues 01/29/23 08/14/23 Unknown History
bisacodyl 10 mg rectal suppository 10 mg ND DAILYPRN PRN if MOM 05/27/23 08/14/23 Unknown History
(Dulcolax (bisacodyl)) ineffective after 24 hrs
gabapentin 400 mg capsule 400 mg PO TID Nerve pain 05/27/23 08/14/23 Unknown History
magnesium hydroxide 400 mg/5 mL 30 ml PO DAILYPRN PRN if no BM in 05/27/23 08/14/23 Unknown History
oral suspension (Milk of Magnesia) 3 days
melatonin 5 mg tablet 5 mg PO HS Sleep 05/27/23 08/14/23 Unknown History
polyethylene glycol 3350 17 gram 17 g PO DAILYPRN PRN constipation 05/27/23 08/14/23 Unknown History
oral powder packet (Miralax)
sertraline 25 mg tablet 25 mg PO DAILY Mental 05/27/23 08/14/23 Unknown History
Health/Anxiety
spironolactone 25 mg tablet 25 mg PO DAILY Fluid 05/27/23 08/14/23 Unknown History
Retention/Swelling
hydrocodone 5 mg-acetaminophen 325 1 tab PO [id number] PRN mild pain #10 05/31/23 08/14/23 Unknown Rx
mg tablet tabs
lorazepam 0.5 mg tablet 0.5 mg PO [id number] PRN anxiety #10 05/31/23 08/14/23 Unknown Rx
tabs
acetaminophen 325 mg tablet 650 mg PO Q4HPRN PRN mild pain 08/14/23 08/14/23 Unknown History
(Tylenol)
fluticasone 100 mcg-salmeterol 50 1 inh inhalation R DAILY 08/14/23 08/14/23 Unknown History
mcg/dose blistr powdr for
inhalation (Advair Diskus)
ketoconazole 2 % shampoo 1 applic topical MOTH 08/14/23 08/14/23 Unknown History
sodium phosphates 19 gram-7 118 ml ND DAILYPRN PRN if no bm 08/14/23 08/14/23 Unknown History
gram/118 mL enema (Fleet Enema) aftr dulcolax
umeclidinium 62.5 mcg/actuation 1 inh inhalation R DAILY 08/14/23 08/14/23 Unknown History
blister powder for inhalation
(Incruse Ellipta)
ursodiol 300 mg capsule 300 mg PO BID 08/14/23 08/14/23 Unknown History
Review of Systems
-
History Source: Patient
All other systems: Negative unless noted (however, poor historian)
Constitutional: Fatigue
Respiratory: Cough and Trouble Breathing
Neuro: Weakness
Vitals / Labs / Diagnostic Testing
Vital Signs
Temp Pulse Resp BP Pulse Ox
98.7 F 88 15 113/60 93
08/14/23 11:14 08/14/23 12:00 08/14/23 12:00 08/14/23 16:00 08/14/23 16:00
Lab Data
08/14/23 11:42
08/14/23 11:42
Diagnostic Testing:
Physical Exam
-
HEENT: Normocephalic, Moist Mucous Membranes and Other (dentures)
Cardiovascular: Regular Rhythm, Peripheral Edema (n), Calf Tenderness and JVD
Respiratory: Wheeze (mild), Rhonchi and Accessory Resp Muscle Use (trace)
GI: Soft, Non Distended and Non Tender
Neurology: Awake, Oriented and No Motor Deficits
Skin: Warm
General: Respiratory Distress (mild)
Assessment
-
Assessment:
Mrs Sarah Koch is a 68/W adm 08-13 [place] with few wk h/o dyspnea and productive cough, worsening for last 2-3 d [employer]. Denies CP, fever, n/v/d. On chronic O2 for severe COPD at 3LPM, recently increased to 4L. At ER. afebrile, low normal BP, CXR
reported suspicious for developing pneumonia, started on atbs. Seen at [facility], having dinner, poor historian, appears in trace dyspnea, presents mild 'wet' cough
Impression:
AECOPD
Marginal intermittent hypotension on adm
Mild chronic thrombocytopenia
Mild hyponatremia
Normal trop and BNP
Conditions present prior to admission:
S/p fall with periprosthetic left hip fracture, Left lateral brow laceration-CT head without acute bleed, adm May 2023
Hospitalization 01/2023-weakness, fall, chronic hypoxemic respiratory failure due to oxygen dependent COPD, cirrhosis and chronic thrombocytopenia
COPD on chronic 3 L oxygen-reportedly does not see a senior catering sales manager, not on inhalers, on oxygen 3 L
Former [id number] by end 2022
Cirrhosis secondary to alcohol.
History hepatic encephalopathy.
Anxiety.
Depression.
Peripheral neuropathy.
Hyponatremia.
Right hip replacement 2021. Left hip replacement 2022.
Plan
O2 protocol
On chronic O2 at 3LPM
Asp precs
Acapella
No leukocytosis
Mild chronic anemia
Afebrile
Low normal BP on adm
Continue dexam 4 mg IV q12
Dns qid and prn
Continue advair, tiotropium
Blood cxs on adm pending
CXR on adm, PA/lat with no infiltrates to my review of films. Per rads suspected developing mild right lower lobe and probable right upper lobe pneumonia
On cefepime/po azithro, started at ER
Check PCT and trend
Added sputum cx
DVT prophylaxis, enoxaparin
[2023-08-14] MEDS: DECADRON 4 MG IV (17:06)
[2023-08-14] MEDS: ZITHROMAX 500 MG PO (17:06)
[2023-08-14] MEDS: BENADRYL 25 MG IV (17:51)
[2023-08-14] MEDS: LOVENOX 40 MG SC (17:52)
[2023-08-14] MEDS: DUONEB INH (17:53)
[2023-08-14] MEDS: ADVAIR HFA 45/21 MCG INHALER 2 PUFF INH (18:01)
--- NOTE | 2023-08-14 18:26 | PTCARENOTE ---
PT recieved from ER with IV vanco infusing only 30 cc left in bag. Face was pale cyanotic. pulse ox 90% on 4 liters oxygen upped to 5 liters. I gave pt Stat IV steroids and zithromax that were ordered stat in ER (after calling CARDIAC EXERCISE SPECIALIST to validate
they were not given). Given. Ten minutes later, Daughter came out and stated pt was red> upon assessment face color changed from pale to blotchy red, not raised, from scalp covering face ears and front of chest. immediatly notified, IV benadryl
given and Resp called . resp gave stat nebulizer. Pt now resting in bed
[2023-08-14] MEDS: VENTOLIN NEBULES 2.5 MG INH (19:49)
[2023-08-14 20:44] LABS: Procalcitonin 0.18 ng/ml (0.0-0.25)
[2023-08-14] MEDS: MELATONIN 5 MG PO (21:38)
[2023-08-14] MEDS: NEURONTIN 400 MG PO (21:38)
[2023-08-14] MEDS: ACTIGALL 300 MG PO (21:38)
[2023-08-14] MEDS: DUPHALAC/CHRONULAC 10 GRAMS PO (21:38)
[2023-08-14] MEDS: XIFAXAN 550 MG PO (21:38)
[2023-08-14] MEDS: MAXIPIME 1000 MG IV (23:28)
[2023-08-14] MEDS: STERILE WATER FOR INJECTION 10 ML IV (23:28)
[2023-08-15] VITALS (7 sets, daily range): BP systolic 92–113; BP diastolic 48–54; PULSE 90; O2SAT 91; BMI 19.8
[2023-08-15] MEDS: VENTOLIN NEBULES 2.5 MG INH ×4 (07:37→20:39)
[2023-08-15] MEDS: SPIRIVA RESPIMAT 2.5 MCG 2 PUFF INH (07:37)
[2023-08-15] MEDS: ADVAIR HFA 45/21 MCG INHALER 2 PUFF INH ×2 (07:38→20:39)
[2023-08-15 08:08] LABS: % Basophils 0.2 % (0-2); % Immature Granulocytes 0.2 % (0-0.5); % Monocytes 11.6 % (1.7-9.3); Absolute Lymphocytes 0.6 10^3/uL (1.2-3.4); Absolute Monocytes 0.5 10^3/uL (0.1-0.6); Absolute Neutrophils 3.2 10^3/uL (1.4-6.5); Hematocrit 32.1 % (37.0-47.0); Hemoglobin 10.7 g/dL (12.0-16.0); Mean Corp Hgb Conc. 33.3 g/dL (33.0-37.0); Mean Corpuscular Hgb 28.5 pg (27.0-31.0); Mean Corpuscular Volume 85.6 fL (81.0-99.0); Mean Platelet Volume 10.6 fL (7.4-10.4); Nucleated Red Blood Cells % 0 %; Platelet Count 98 10^3/uL (130-400); Red Blood Cell Count 3.75 10^6/uL (4.20-5.40); Red Cell Dist. Width 14.7 % (11.5-14.5); White Blood Cell Count 4.3 10^3/uL (4.8-10.8)
--- NOTE | 2023-08-15 08:20 | W.PN.HOSP.TC ---
Today's Communication/Plan
-
IV steroids. Bronchodilators. Antibiotics
Assessment / Plan
Assessment / Plan
Physical exam:
General: Acute on chronically ill
HEENT: Normocephalic, Atraumatic and Moist Mucous Membranes
Respiratory: Decreased breath sounds bilateral; bilateral scattered wheezes, No Rales or Rhonchi
Cardiac: Regular Rhythm and S1/S2
GI: Soft, Nontender and Nondistended
Musculoskeletal: No Clubbing, No Cyanosis and No Edema
Neuro: Awake, Alert and Oriented
Psych: Calm
A/P:
Acute on chronic hypoxic respiratory failure:
Oxygen supplementation, remains on 4 L of oxygen.
Steroids and antibiotic
Monitor respiratory status closely
Pulmonary consult appreciated
PT OT eval
COPD with exacerbation:
IV steroids, dexamethasone 4 mg IV every 12 hours
Patient feels better but still having significant wheezing so continue IV steroids. Follow-up further pulmonary recommendations.
Bronchodilators, DuoNebs 4 times daily
Monitor respiratory status and bronchospasm closely
Probable Pneumonia:
Seen and reviewed chest x-ray and not impressive
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
No leukocytosis and afebrile, Pro-Oswaldo 0.18
Blood cultures no growth so far
Check sputum culture
Check strep and Legionella
Change antibiotics to IV Rocephin and azithromycin and might consider stop. Follow-up further pulmonary recommendations.
Cirrhosis:
Continue home diuretics and lactulose and Xifaxan
Monitor mental status
Depression anxiety:
Continue sertraline and lorazepam
Monitor mental status and behavior
Chronic pain/narcotic dependence:
Continue home narcotics but cautiously monitor
Continue gabapentin
Mild pancytopenia due to cirrhosis:
Monitor CBC
No signs of bleeding
DVT prophylaxis:
Lovenox 40 mg SQ daily
Monitor hemoglobin and platelet count (not prohibitive at the moment and stable)
CODE STATUS:
Full code
Anticipated Discharge: > 48 hours
Subjective/Interval History
-
Date of Service: August 15, 2023
She feels better today, less cough and shortness of breath. Afebrile
Objective Data
-
Labs:
Laboratory Results
08/15/23
07:54
WBC 4.3 L
Hgb 10.7 L
Hct 32.1 L
Plt Count 98 L
Sodium Pending
Potassium Pending
Chloride Pending
Carbon Dioxide Pending
BUN Pending
Creatinine Pending
Glucose Pending
Calcium Pending
Total Bilirubin Pending
AST Pending
ALT Pending
Alkaline Phosphatase Pending
Vital Signs:
Vital Signs
Temp Pulse Resp BP Pulse Ox
98.7 F 76 20 92/49 95
08/15/23 07:00 08/15/23 07:56 08/15/23 07:56 08/15/23 07:00 08/15/23 07:56
I&O
08/14/23 08/15/23 08/16/23
06:59 06:59 06:59
Intake Total 240 / 240
Balance 240 / 240
[2023-08-15 08:46] LABS: ALT (SGPT) 16 U/L (0-35); AST (SGOT) 26 U/L (14-36); Albumin 3.1 g/dl (3.5-5.0); Alkaline Phosphatase 146 U/L (38-126); Blood Urea Nitrogen 33 mg/dl (7-17); Calcium 8.7 mg/dl (8.4-10.2); Carbon Dioxide 23 mmol/L (22-30); Chloride 104 mmol/L (98-107); Estimated Creatinine Clearance 41 ml/min; Glucose 127 mg/dl (70-99); Potassium 4.9 mmol/L (3.5-5.1); Sodium 136 mmol/L (135-145); Total Bilirubin 1.3 mg/dl (0.2-1.3); Total Protein 6.7 g/dl (6.3-8.2); eGFR > 60.00
[2023-08-15] MEDS: ACTIGALL 300 MG PO ×2 (10:01→20:42)
[2023-08-15] MEDS: DECADRON 4 MG IV ×2 (10:01→20:42)
[2023-08-15] MEDS: LASIX 20 MG PO (10:01)
[2023-08-15] MEDS: ALDACTONE 25 MG PO (10:01)
[2023-08-15] MEDS: DUPHALAC/CHRONULAC 10 GRAMS PO ×3 (10:01→22:21)
[2023-08-15] MEDS: XIFAXAN 550 MG PO ×2 (10:02→20:42)
[2023-08-15] MEDS: STERILE WATER FOR INJECTION 10 ML IV (10:02)
[2023-08-15] MEDS: NEURONTIN 400 MG PO ×3 (10:02→22:21)
[2023-08-15] MEDS: ZOLOFT 25 MG PO (10:02)
[2023-08-15] MEDS: ROCEPHIN 1000 MG IV (10:02)
[2023-08-15] MEDS: STERILE WATER FOR INJECTION IV (10:03)
[2023-08-15] MEDS: MAXIPIME IV (10:03)
[2023-08-15] MEDS: ZITHROMAX 250 MG PO (11:00)
--- NOTE | 2023-08-15 12:26 | PTCARENOTE ---
Zithromax was on hold until instructed me. gave permission to give zithromax but to monitorher. PT was given zithromax, Pt did not have any redness or itching after, Md aware. I sent urine for strep and legionelle urine is foul odor and
murky, notified Urine cutlure and sensitivity ordered .
--- NOTE | 2023-08-15 13:28 | W.PN.PUL3 ---
Today's Communication / Plan
-
O2
CS
Atbs
CXR
Assessment
-
Assessment:
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 Denies CP, fever, n/v/d. On chronic O2 for severe COPD at 3LPM, recently increased to 4L. At ER. afebrile, low normal BP, CXR
reported suspicious for developing pneumonia, started on atbs. Seen at [facility], having dinner, poor historian, appears in trace dyspnea, presents mild 'wet' cough
Impression:
AECOPD
Marginal intermittent hypotension on adm
Mild chronic thrombocytopenia
Mild hyponatremia
Normal trop and BNP
Conditions present prior to admission:
S/p fall with periprosthetic left hip fracture, Left lateral brow laceration-CT head without acute bleed, adm May 2023
Hospitalization 01/2023-weakness, fall, chronic hypoxemic respiratory failure due to oxygen dependent COPD, cirrhosis and chronic thrombocytopenia
COPD on chronic 3 L oxygen-reportedly does not see a linux server engineer, not on inhalers, on oxygen 3 L
Former [id number]-quit by end 2022
Cirrhosis secondary to alcohol.
History hepatic encephalopathy.
Anxiety.
Depression.
Peripheral neuropathy.
Hyponatremia.
Right hip replacement 2021. Left hip replacement 2022.
Plan
O2 protocol
On chronic O2 at 3LPM
Comfortable on above, POx 93% at rest
Asp precs
Acapella
No leukocytosis
Mild chronic anemia
Afebrile
Low normal BP on adm
On dexam 4 mg IV q12, continue, reevaluate dose and route on a daily basis
Dns qid and prn, continue
Continue advair, tiotropium
Blood cxs on adm: so far negative
UAg Leg and Strep negative
CXR on adm, PA/lat with no infiltrates to my review of films. Per rads suspected developing mild right lower lobe and probable right upper lobe pneumonia
On cefepime/po azithro, started at ER
Adjusted to ceftriaxone/po azithro on 08-14 per adm svce, agree to low threshold to discontinue if remains stable
F/u CXR in AM, ordered
Added PCT 08-13: negative
Added sputum cx: pending
Daughter Tiffani visiting 08-14, she reports that her mother is still vaping nicotine rehab center, patient acknowledged this fact, she is not completely motivated to quit at this juncture
DVT prophylaxis, enoxaparin
D/w Mrs Koch and her daughter 08-14
Subjective Data
-
Date of Service:
Date of Service: August 15, 2023
Chief Complaint: Pulmonary Follow Up
Subjective:
No major events reported overnight
Feeling better regarding dyspnea and cough
Started Acapella valve, produced small amount of dark green sputum earlier today
Sitting in chair
Daughter Tiffani visiting, she reports that her mother is still vaping nicotine rehab center, patient acknowledged this fact
Review of Systems
General: Fever (n), Sweats (n), Chills (n) and Satisfactory Appetite (n)
Cardiopulmonary: Dyspnea, Cough, Sputum Production, Wheezing (trace), Chest Pain (n), Edema (trace pedal) and Hemoptysis (n)
GI: Abdominal Pain (n), Nausea (n) and Vomiting (n)
Neuro: Weakness
Objective Data
Data Reviewed
Vital Signs / I&O / Oxygen:
Vital Signs
Temp Pulse Resp BP Pulse Ox
98.1 F 78 20 92/49 88
08/15/23 11:00 08/15/23 11:25 08/15/23 11:25 08/15/23 11:00 08/15/23 12:02
Intake and Output
08/14/23 08/15/23 08/16/23
06:59 06:59 06:59
Intake Total 240 / 240
Balance 240 / 240
SaO2 88
Nasal Cannula flow liters per 4
minute
Physical Exam
General: Respiratory Distress (n)
HEENT: Normocephalic, Moist Mucous Membranes and Thrush (n)
Cardiovascular: Regular Rhythm, Murmur (n), Peripheral Edema (trace pedal) and Calf Tenderness (n)
Respiratory: Wheeze (n), Rhonchi, Non-Labored Respirations and Stridor (n)
GI: Soft, Non Distended and Non Tender
Neurology: Awake, AO x 3 and No Motor Deficits
Skin: Warm
Labs/Micro/Reports
Lab Data
08/15/23 07:54
08/15/23 07:54
Microbiology
08/15/23 12:22 Urine Legionella Urinary Antigen - Final
Negative for Legionella pneumophila Serogroup 1 antigen.
A negative result does not rule out the possiblity of
Legionella infection due to other serogroups or species of
Legionella. Clinical correlation is recommended.
08/15/23 12:22 Urine Streptococcus pneumoniae Antigen (M - Final
Negative for Streptococcus pneumoniae antigen.
A negative result does not exclude infection with
Streptococcus pneumoniae. Clinical correlation is
recommended.
08/15/23 10:08 Sputum Gram Stain - Preliminary
[2023-08-15] MEDS: LOVENOX 40 MG SC (16:35)
[2023-08-15 16:38] LABS: Urine Albumin 1+ (Neg - Trace); Urine Bilirubin Negative (Negative); Urine Character Very Cloudy (Clear); Urine Color Yellow; Urine Glucose Negative (Negative); Urine Ketone Negative (Negative); Urine Leukocyte 2+ (Negative); Urine Nitrite Negative (Negative); Urine Occult Blood 2+ (Negative); Urine Specific Gravity 1.015 (<1.030); Urine Urobilinogen Negative (Neg - 1+)
[2023-08-15 16:44] LABS: Urine Bacteria Many (Negative); Urine Red Blood Cell 0-2 /HPF (0-2); Urine White Cell 26-30 /HPF (0-5)
[2023-08-15] MEDS: MELATONIN 5 MG PO (22:21)
[2023-08-16] VITALS (7 sets, daily range): BP systolic 93–107; BP diastolic 45–66; PULSE 83; O2SAT 90
[2023-08-16 06:45] LABS: % Basophils 0.3 % (0-2); % Immature Granulocytes 0.5 % (0-0.5); % Lymphocytes 8.4 % (20.5-51.1); % Monocytes 4.1 % (1.7-9.3); % Neutrophils 86.7 % (42.2-75.2); Absolute Lymphocytes 0.3 10^3/uL (1.2-3.4); Absolute Monocytes 0.2 10^3/uL (0.1-0.6); Absolute Neutrophils 3.2 10^3/uL (1.4-6.5); Hematocrit 29.7 % (37.0-47.0); Hemoglobin 9.8 g/dL (12.0-16.0); Mean Corpuscular Hgb 28.2 pg (27.0-31.0); Mean Corpuscular Volume 85.3 fL (81.0-99.0); Mean Platelet Volume 10.8 fL (7.4-10.4); Nucleated Red Blood Cells % 0 %; Platelet Count 90 10^3/uL (130-400); Red Blood Cell Count 3.48 10^6/uL (4.20-5.40); Red Cell Dist. Width 14.6 % (11.5-14.5); White Blood Cell Count 3.7 10^3/uL (4.8-10.8)
[2023-08-16 07:19] LABS: Blood Urea Nitrogen 48 mg/dl (7-17); Calcium 8.8 mg/dl (8.4-10.2); Carbon Dioxide 20 mmol/L (22-30); Chloride 104 mmol/L (98-107); Estimated Creatinine Clearance 46 ml/min; Glucose 131 mg/dl (70-99); Potassium 4.6 mmol/L (3.5-5.1); Sodium 134 mmol/L (135-145); eGFR > 60.00
[2023-08-16] MEDS: VENTOLIN NEBULES 2.5 MG INH ×4 (07:31→19:12)
[2023-08-16] MEDS: ADVAIR HFA 45/21 MCG INHALER 2 PUFF INH ×2 (07:32→19:12)
[2023-08-16] MEDS: SPIRIVA RESPIMAT 2.5 MCG 2 PUFF INH (07:32)
[2023-08-16] MEDS: DUPHALAC/CHRONULAC 10 GRAMS PO ×3 (09:09→21:00)
[2023-08-16] MEDS: ACTIGALL 300 MG PO ×2 (09:09→20:55)
[2023-08-16] MEDS: ZITHROMAX 250 MG PO (09:09)
[2023-08-16] MEDS: XIFAXAN 550 MG PO ×2 (09:10→20:56)
[2023-08-16] MEDS: NEURONTIN 400 MG PO ×3 (09:10→21:00)
[2023-08-16] MEDS: ZOLOFT 25 MG PO (09:10)
[2023-08-16] MEDS: LASIX 20 MG PO (09:10)
[2023-08-16] MEDS: ALDACTONE 25 MG PO (09:11)
[2023-08-16] MEDS: DECADRON 4 MG IV ×2 (09:11→20:55)
[2023-08-16] MEDS: ROCEPHIN 1000 MG IV (09:33)
[2023-08-16] MEDS: STERILE WATER FOR INJECTION 10 ML IV (09:34)
--- NOTE | 2023-08-16 11:15 | W.PN.HOSP.TC ---
Today's Communication/Plan
-
likely dc in am
Titrate down the oxygen or wean if possible
Assessment / Plan
Assessment / Plan
Physical exam:
General: Acute on chronically ill
HEENT: Normocephalic, Atraumatic and Moist Mucous Membranes
Respiratory: Decreased breath sounds bilateral; bilateral scattered wheezes, No Rales or Rhonchi
Cardiac: Regular Rhythm and S1/S2
GI: Soft, Nontender and Nondistended
Musculoskeletal: No Clubbing, No Cyanosis and No Edema
Neuro: Awake, Alert and Oriented
Psych: Calm
A/P:
Acute on chronic hypoxic respiratory failure:
Oxygen supplementation, remains on 4 L of oxygen.
Will try to titrate down
Monitor respiratory status closely
Pulmonary consult appreciated
PT OT eval
COPD with exacerbation:
She continues to smoke tobacco.
Still wheezes and limited air entry in both sides
c/w IV steroids, dexamethasone 4 mg IV every 12 hours
Patient feels better overall.
Bronchodilators, DuoNeb 4 times daily
Monitor respiratory status and bronchospasm closely
Probable Pneumonia:
Seen and reviewed chest x-ray and not impressive
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
No leukocytosis and afebrile, Pro-Oswaldo 0.18
Blood cultures no growth so far
Sputum culture showing respiratory shamar
Negative strep and Legionella
Changed antibiotics to IV Rocephin and azithromycin.
# Hepatic Cirrhosis:
Continue home diuretics and lactulose and Xifaxan
No confusion, followed commands, lucid.
# Cloudy urine
Will f/w urine culture
No renal colic
No fever
she is on Rocephin for now
# Hyponatremia
Mild
#Depression anxiety:
Continue sertraline and lorazepam
Monitor mental status and behavior
# Chronic pain syndrome with narcotic dependence:
Continue home narcotics but cautiously monitor
Continue gabapentin
#Mild pancytopenia due to cirrhosis:
Monitored CBC
No bleeding
No signs of bleeding
DVT prophylaxis:
Lovenox 40 mg SQ daily
Monitor hemoglobin and platelet count (not prohibitive at the moment and stable)
CODE STATUS:
Full code
Total time spent to see the patient on the floor, examine the patient, review data and lab results, discuss treatment plan with patient, nursing staff around 55 minutes
Anticipated Discharge: Within 24 hours
Subjective/Interval History
-
Date of Service: August 16, 2023
still cough with less sob
No chest pain
No fevers
Objective Data
-
Labs:
Laboratory Results
08/16/23
06:20
WBC 3.7 L
Hgb 9.8 L
Hct 29.7 L
Plt Count 90 L
Sodium 134 L
Potassium 4.6
Chloride 104
Carbon Dioxide 20 L
BUN 48 H
Creatinine 0.9
Glucose 131 H
Calcium 8.8
Vital Signs:
Vital Signs
Temp Pulse Resp BP Pulse Ox
98.1 F 77 18 96/44 90
08/16/23 07:00 08/16/23 09:11 08/16/23 07:54 08/16/23 09:11 08/16/23 07:54
I&O
08/15/23 08/16/23 08/17/23
06:59 06:59 06:59
Intake Total 240 / 240 450 / 450
Balance 240 / 240 450 / 450
--- NOTE | 2023-08-16 14:38 | CM ---
Met with pt at bedside
Pt reports she is a LTR at [facility] - confirmed with Odalys
Plans to return when d/c'ed
Uses 2L O2 continuously
Assist with care, ambulates with rolling walker or rollator
Daughter will transport back to [facility]
PCP - Dr Douglas Conner
Pharm - [facility]
Plan - anticipate return to [facility] when medically stable
--- NOTE | 2023-08-16 15:50 | W.PN.PUL3 ---
Today's Communication / Plan
-
Transition to prednisone tomorrow
Continue current med management
Will follow
Assessment
-
Assessment:
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 Denies CP, fever, n/v/d. On chronic O2 for severe COPD at 3LPM, recently increased to 4L. At ER. afebrile, low normal BP, CXR
reported suspicious for developing pneumonia, started on atbs. Seen at [facility], having dinner, poor historian, appears in trace dyspnea, presents mild 'wet' cough
Impression:
AECOPD
Marginal intermittent hypotension on adm
Mild chronic thrombocytopenia
Mild hyponatremia
Normal trop and BNP
Conditions present prior to admission:
S/p fall with periprosthetic left hip fracture, Left lateral brow laceration-CT head without acute bleed, adm May 2023
Hospitalization 01/2023-weakness, fall, chronic hypoxemic respiratory failure due to oxygen dependent COPD, cirrhosis and chronic thrombocytopenia
COPD on chronic 3 L oxygen-reportedly does not see a souvenir assembler, not on inhalers, on oxygen 3 L
Former [id number]-quit by end 2022
Cirrhosis secondary to alcohol.
History hepatic encephalopathy.
Anxiety.
Depression.
Peripheral neuropathy.
Hyponatremia.
Right hip replacement 2021. Left hip replacement 2022.
Plan
Clinically improved.
On chronic O2 at 3LPM-at baseline.
Comfortable on above, POx 93% at rest
No evidence for infection:
No leukocytosis
Afebrile
Continue therapy for COPD exacerbation: Clinical responding.
On dexam 4 mg IV q12, continue-clinically improved. Transition to prednisone today. Taper by 10 mg every 48 hours to off.
Dns qid and prn, continue
Continue advair, tiotropium
Blood cxs on adm: so far negative
UAg Leg and Strep negative
CXR on adm, PA/lat with no infiltrates to my review of films. Per rads suspected developing mild right lower lobe and probable right upper lobe pneumonia
On cefepime/po azithro, started at ER
Repeat chest x-ray 08/16/2023: Reviewed, showed increased reticular markings within the mid to lower lungs bilaterally. No evidence for significant associated pleural effusion.
Added PCT 08-13: negative
sputum cx: Normal respiratory radha.
Adjusted to ceftriaxone/po azithro on 08-14 per adm svce. May transition to oral antibiotics in the next 24 hours and complete 5 to 7 days.
Recommend radiographic outpatient follow-up in the next 4 to 6 weeks. Will leave information in the chart to consider follow-up versus follow-up with primary care.
Daughter Tiffani visiting 08-14, she reports that her mother is still vaping nicotine rehab center, patient acknowledged this fact, she is not completely motivated to quit at this juncture
DVT prophylaxis, enoxaparin
Will follow.
Hopefully discharge in the next 24 hours
Subjective Data
-
Date of Service:
Date of Service: August 16, 2023
Chief Complaint: Pulmonary Follow Up
Subjective:
No overnight events.
Review of Systems
General: Fever (n)
Cardiopulmonary: Dyspnea (improved)
GI: Abdominal Pain (n), Nausea (n) and Vomiting
Neuro: Headache (n)
Objective Data
Data Reviewed
Vital Signs / I&O / Oxygen:
Vital Signs
Temp Pulse Resp BP Pulse Ox
98.1 F 76 18 101/49 94
08/16/23 15:00 08/16/23 15:40 08/16/23 15:40 08/16/23 15:00 08/16/23 15:40
Intake and Output
08/15/23 08/16/23 08/17/23
06:59 06:59 06:59
Intake Total 240 / 240 450 / 450
Balance 240 / 240 450 / 450
SaO2 94
Nasal Cannula flow liters per 2
minute
Physical Exam
General: Respiratory Distress (n)
HEENT: Normocephalic, Moist Mucous Membranes and Thrush (n)
Cardiovascular: Regular Rhythm, Murmur (n), Peripheral Edema (trace pedal) and Calf Tenderness (n)
Respiratory: Wheeze (n), Rhonchi, Non-Labored Respirations and Stridor (n)
GI: Soft, Non Distended and Non Tender
Neurology: Awake, AO x 3 and No Motor Deficits
Skin: Warm
Labs/Micro/Reports
Lab Data
08/16/23 06:20
08/16/23 06:20
Microbiology
08/15/23 10:08 Sputum Respiratory Culture - Preliminary
Usual Respiratory Radha
08/15/23 10:08 Sputum Gram Stain - Preliminary
08/14/23 16:35 Blood/Venous Blood Culture - Preliminary
No Growth in 24 hours- Final report to follow
08/14/23 16:14 Blood/Venous Blood Culture - Preliminary
No Growth in 24 hours- Final report to follow
08/15/23 12:22 Urine Legionella Urinary Antigen - Final
Negative for Legionella pneumophila Serogroup 1 antigen.
A negative result does not rule out the possiblity of
Legionella infection due to other serogroups or species of
Legionella. Clinical correlation is recommended.
08/15/23 12:22 Urine Streptococcus pneumoniae Antigen (M - Final
Negative for Streptococcus pneumoniae antigen.
A negative result does not exclude infection with
Streptococcus pneumoniae. Clinical correlation is
recommended.
[2023-08-16] MEDS: LOVENOX 40 MG SC (17:12)
[2023-08-16] MEDS: MELATONIN 5 MG PO (21:00)
[2023-08-17 03:06] VITALS: BP 107/84
--- NOTE | 2023-08-17 05:28 | PTCARENOTE ---
Pt awake most of the night watching jose movies. Pt with significant audible wheezes post using the BSC this am. WALLACE. [address] in [address]. Pt inc of urine. CHG bath provided. Arcelia care complete. New brief now in place. Pt with HR in the 60's
in NSR with frequent PAC's on the monitor. Pt denies any complaints. Will continue to monitor.
[2023-08-17 06:00] VITALS: BMI 19.8
[2023-08-17] MEDS: VENTOLIN NEBULES 2.5 MG INH ×3 (07:26→15:38)
[2023-08-17] MEDS: SPIRIVA RESPIMAT 2.5 MCG 2 PUFF INH (07:26)
[2023-08-17] MEDS: ADVAIR HFA 45/21 MCG INHALER 2 PUFF INH (07:26)
[2023-08-17 07:34] VITALS: BP 107/49
[2023-08-17] MEDS: XIFAXAN 550 MG PO (07:59)
[2023-08-17] MEDS: ACTIGALL 300 MG PO (07:59)
[2023-08-17] MEDS: ZOLOFT 25 MG PO (07:59)
[2023-08-17] MEDS: DECADRON 4 MG IV (07:59)
[2023-08-17] MEDS: NEURONTIN 400 MG PO ×2 (07:59→16:14)
[2023-08-17] MEDS: ZITHROMAX 250 MG PO (07:59)
[2023-08-17] MEDS: DUPHALAC/CHRONULAC 10 GRAMS PO ×2 (07:59→16:14)
[2023-08-17] MEDS: ALDACTONE 25 MG PO (08:03)
[2023-08-17] MEDS: LASIX 20 MG PO (08:04)
[2023-08-17 10:10] VITALS: BP 114/46; BP 128/46; PULSE 77; O2SAT 95
[2023-08-17] MEDS: STERILE WATER FOR INJECTION 10 ML IV (10:50)
[2023-08-17] MEDS: ROCEPHIN 1000 MG IV (10:50)
[2023-08-17 11:41] VITALS: BP 94/66
--- NOTE | 2023-08-17 12:42 | W.DCSUMMARY ---
Discharge Summary
Discharge Data
Date of Admission: 08/14/23
Date of Discharge: 08/17/23
-
Pending Results: No
Hospital Course
68 years old female presented with shortness of breath and increased coughing. No sputum production. No fever or chills. She had history of chronic hypoxic respiratory failure and on home oxygen. She noticed increased requirement of oxygen from
3 to 4 liters. She did not have leukocytosis. Chest radiography showed mild right lower lobe and probable right upper lobe infiltration. Patient was started on antibiotics. She was evaluated by pulmonary doctor. Patient was diagnosed with acute
exacerbation of chronic obstructive pulmonary disease. Less likely pneumonia. Patient was given empiric antibiotics and later stopped. She was maintained on breathing treatments and was given intravenous steroid treatment. Patient started to
feel better with resolution of her shortness of breath. She had less wheezing on examination of the lungs. Patient was counseled to quit smoking including vaping. Patient expressed her intention to completely quit vaping. She had negative
Legionella antigen and Streptococcus pneumonia antigen. Respiratory culture showed usual respiratory shamar. Blood culture did not show any growth. Urine was reportedly cloudy. Urine culture did not show any growth. Patient did not have dysuria.
She was given empiric Rocephin. She remained hemodynamically stable and was discharged in a stable condition.
Physical exam:
General: Acute on chronically ill
HEENT: Normocephalic, Atraumatic and Moist Mucous Membranes
Respiratory: Decreased breath sounds bilateral; bilateral scattered wheezes, No Rales or Rhonchi
Cardiac: Regular Rhythm and S1/S2
GI: Soft, Nontender and Nondistended
Musculoskeletal: No Clubbing, No Cyanosis and No Edema
Neuro: Awake, Alert and Oriented
Psych: Calm, pleasant.
Total discharge time spent to see the patient on the floor, examine the patient, review data and lab results, discuss discharge plan with patient, transplant case manager, nursing staff around 65 minutes
Discharge Plan
-
Patient Disposition: [facility]/SNF
Discharge Diagnosis/Procedures: Acute exacerbation of chronic obstructive pulmonary disease
Continued tobacco use. Advised to quit smoking/vaping
Diet: As tolerated
Referrals:
Douglas Conner DO [Family Provider] - in one to two weeks
Israel Lopez MD [Active] - in four to six weeks (May see HI LIFT OPERATOR.)
Prescriptions:
New
prednisone 10 mg tablet
30 mg PO DAILY Qty: 12 0RF
Rx Instructions:
30 mg for 2 days, 20 mg for 2 days, 10 mg for 2-day
ipratropium-albuterol 0.5 mg-3 mg(2.5 mg base)/3 mL solution for nebulization
3 ml inhalation QID PRN (Reason: shortness of breath or wheezing) Qty: 90 0RF
Continued
furosemide 20 mg Tablet
20 mg PO DAILY
lactulose 10 gram/15 mL Solution
15 ml PO TID
Xifaxan 550 mg Tablet
550 mg PO BID
gabapentin 400 mg Capsule
400 mg PO TID
magnesium hydroxide [Milk of Magnesia] 400 mg/5 mL Suspension
30 ml PO DAILYPRN PRN (Reason: if no BM in 3 days)
bisacodyl [Dulcolax (bisacodyl)] 10 mg Suppository
10 mg TN DAILYPRN PRN (Reason: if MOM ineffective after 24 hrs)
melatonin 5 mg Tablet
5 mg PO HS
polyethylene glycol 3350 [Miralax] 17 gram Powder In Packet
17 g PO DAILYPRN PRN (Reason: constipation)
spironolactone 25 mg Tablet
25 mg PO DAILY
sertraline 25 mg Tablet
25 mg PO DAILY
hydrocodone-acetaminophen 5-325 mg Tablet
1 tab PO [id number] PRN (Reason: mild pain) Qty: 10 0RF
lorazepam 0.5 mg Tablet
0.5 mg PO [id number] PRN (Reason: anxiety) Qty: 10 0RF
acetaminophen [Tylenol] 325 mg Tablet
650 mg PO Q4HPRN PRN (Reason: mild pain)
ketoconazole 2 % Shampoo
1 applic TOPICAL MOTH
ursodiol 300 mg Capsule
300 mg PO BID
Fleet Enema 19-7 gram/118 mL Enema
118 ml TN DAILYPRN PRN (Reason: if no bm aftr dulcolax)
fluticasone propion-salmeterol [Advair Diskus] 100-50 mcg/dose Blister With Device
1 inh INHALATION R DAILY
Incruse Ellipta 62.5 mcg/actuation Blister With Device
1 inh INHALATION R DAILY
Discharge Orders:
Discharge Patient (As Directed); Ordered 08/17/23
Ordered By: Dago Regan
Discharge Date and Time
Print Language: SWEDISH
--- NOTE | 2023-08-17 12:56 | CM ---
Addendum entered by Sheron Stratton 08/17/23 16:08:
Transport to [facility] scheduled for 1829 today
Odalys at [facility]
LM on daughter Suze [phone] - return to [facility] at 6:30PM
Original Note:
Case management following for d/c planning
Pt for d/c today
Odalys at [facility]
Discussed IMM
Plan - return to [facility]
R - [phone]
F - [phone]
--- NOTE | 2023-08-17 14:26 | W.PN.PUL3 ---
Today's Communication / Plan
-
Transitioned to prednisone
Complete 5 to 7 days of antibiotic
Continue inhalers
Outpatient pulmonary follow-up after discharge, information will be left in the chart
Assessment
-
Assessment:
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 Denies CP, fever, n/v/d. On chronic O2 for severe COPD at 3LPM, recently increased to 4L. At ER. afebrile, low normal BP, CXR
reported suspicious for developing pneumonia, started on atbs. Seen at [facility], having dinner, poor historian, appears in trace dyspnea, presents mild 'wet' cough
Impression:
AECOPD
Marginal intermittent hypotension on adm
Mild chronic thrombocytopenia
Mild hyponatremia
Normal trop and BNP
Conditions present prior to admission:
S/p fall with periprosthetic left hip fracture, Left lateral brow laceration-CT head without acute bleed, adm May 2023
Hospitalization 01/2023-weakness, fall, chronic hypoxemic respiratory failure due to oxygen dependent COPD, cirrhosis and chronic thrombocytopenia
COPD on chronic 3 L oxygen-reportedly does not see a media senior recruiter, not on inhalers, on oxygen 3 L
Former [id number]-quit by end 2022
Cirrhosis secondary to alcohol.
History hepatic encephalopathy.
Anxiety.
Depression.
Peripheral neuropathy.
Hyponatremia.
Right hip replacement 2021. Left hip replacement 2022.
Plan
Clinically improved.
On chronic O2 at 3LPM-at baseline.
Comfortable on above, POx 93% at rest
No evidence for infection:
No leukocytosis
Afebrile
Continue therapy for COPD exacerbation: Clinically improved.
On dexam 4 mg IV q12, continue-clinically improved. Transition to prednisone today 08/17/2023. 30 mg and taper by 10 mg every 48 hours to off.
Dns qid and prn, continue while in the hospital.
Continue advair, tiotropium
Blood cxs on adm: so far negative
UAg Leg and Strep negative
CXR on adm, PA/lat with no infiltrates to my review of films. Per rads suspected developing mild right lower lobe and probable right upper lobe pneumonia
On cefepime/po azithro, started at ER
Repeat chest x-ray 08/16/2023: showed increased reticular markings within the mid to lower lungs bilaterally. No evidence for significant associated pleural effusion.
PCT 08-13: negative
sputum cx: Normal respiratory radha.
Adjusted to ceftriaxone/po azithro on 08-14 per adm svce. Okay to transition to oral antibiotics and complete 5 to 7 days.
Recommend radiographic outpatient follow-up in the next 4 to 6 weeks. Will leave information in the chart to consider follow-up versus follow-up with primary care.
Daughter Tiffani visiting 08-14, she reports that her mother is still vaping nicotine rehab center, patient acknowledged this fact, she is not completely motivated to quit at this juncture
DVT prophylaxis, enoxaparin
No additional recommendation from the pulmonary perspective.
Outpatient pulmonary follow-up.
Subjective Data
-
Date of Service:
Date of Service: August 17, 2023
Chief Complaint: Pulmonary Follow Up
Subjective:
Overall patient feels better.
Denies hemoptysis
Denies purulent sputum production
Denies palpitations or chest pain
Review of Systems
Cardiopulmonary: Dyspnea (Improved)
GI: Abdominal Pain (n) and Nausea (n)
Neuro: Headache (n)
Objective Data
Data Reviewed
Vital Signs / I&O / Oxygen:
Vital Signs
Temp Pulse Resp BP Pulse Ox
97.6 F 70 17 94/66 99
08/17/23 11:41 08/17/23 11:41 08/17/23 11:41 08/17/23 11:41 08/17/23 11:41
Intake and Output
08/16/23 08/17/23 08/18/23
06:59 06:59 06:59
Intake Total 450 / 450 880 / 880
Balance 450 / 450 880 / 880
SaO2 99
Nasal Cannula flow liters per 2
minute
Physical Exam
General: Respiratory Distress (n)
HEENT: Normocephalic, Moist Mucous Membranes and Thrush (n)
Cardiovascular: Regular Rhythm, Murmur (n), Peripheral Edema (trace pedal) and Calf Tenderness (n)
Respiratory: Wheeze (n), Rhonchi, Non-Labored Respirations and Stridor (n)
GI: Soft, Non Distended and Non Tender
Neurology: Awake, AO x 3 and No Motor Deficits
Skin: Warm
Labs/Micro/Reports
Lab Data
08/16/23 06:20
08/16/23 06:20
Microbiology
08/15/23 10:08 Sputum Respiratory Culture - Final
Usual Respiratory Radha
08/15/23 10:08 Sputum Gram Stain - Final
08/15/23 16:29 Urine Urine Culture - Final
No Significant Growth
08/14/23 16:35 Blood/Venous Blood Culture - Preliminary
No Growth in 48 hours- Final report to follow
08/14/23 16:14 Blood/Venous Blood Culture - Preliminary
No Growth in 48 hours- Final report to follow
08/15/23 12:22 Urine Legionella Urinary Antigen - Final
Negative for Legionella pneumophila Serogroup 1 antigen.
A negative result does not rule out the possiblity of
Legionella infection due to other serogroups or species of
Legionella. Clinical correlation is recommended.
08/15/23 12:22 Urine Streptococcus pneumoniae Antigen (M - Final
Negative for Streptococcus pneumoniae antigen.
A negative result does not exclude infection with
Streptococcus pneumoniae. Clinical correlation is
recommended.
[2023-08-17 15:00] VITALS: BP 117/59
[2023-08-17] MEDS: LOVENOX 40 MG SC (17:06)
[2023-08-17 18:00] VITALS: BP 103/64
[2023-08-17] MEDS: VENTOLIN NEBULES INH (19:29)
[2023-08-17] MEDS: ADVAIR HFA 45/21 MCG INHALER INH (19:29)
== END 2023-08-17 19:30 | DRG 190 ==
LOC: 3 WEST ACU 16:12
PROVIDERS: Registered Nurse; ADMITTING PHYSICIAN Hospitalist; ATTENDING PHYSICIAN Internal Medicine; CONSULT PHYSICIAN Internal Medicine Pulmonary Disease; EMERGENCY PHYSICIAN Emergency Medicine; FAMILY PHYSICIAN Internal Medicine
DX: J44.1 Chronic obstructive pulmonary disease with (acute) exacerbation (principal); J18.9 Pneumonia, unspecified organism; J96.21 Acute and chronic respiratory failure with hypoxia; F11.20 Opioid dependence, uncomplicated; D61.818 Other pancytopenia; E87.1 Hypo-osmolality and hyponatremia; R64 Cachexia; Z68.1 Body mass index [BMI] 19.9 or less, adult; K70.30 Alcoholic cirrhosis of liver without ascites; F10.11 Alcohol abuse, in remission; G89.29 Other chronic pain; Z99.81 Dependence on supplemental oxygen; Z87.891 Personal history of nicotine dependence
CPT/HCPCS: 71046; 80048; 80053; 81003; 81015; 83880; 84145; 84484; 85025; 87040; 87070; 87086; 87205; 87449; 87811; 87899; 93005; 94640; 96365; 96375; 97116; 97162; 97166; 97530; 99285

== ENCOUNTER 2023-09-07 06:13 | Day surgery (SDC) | payer MEDICARE, OTHER, SELFPAY ==
[2023-09-07 07:53] VITALS: BP 117/52
[2023-09-07 08:07] VITALS: BMI 21.6
[2023-09-07 08:08] VITALS: BMI 21.6
[2023-09-07 09:00] VITALS: BP 106/57
[2023-09-07 09:15] VITALS: BP 106/55
[2023-09-07 09:45] VITALS: BP 126/58
== END 2023-09-07 11:24 ==
LOC: SDS 06:13
PROVIDERS: ATTENDING PHYSICIAN Internal Medicine Gastroenterology
DX: K26.9 Duodenal ulcer, unspecified as acute or chronic, without hemorrhage or perforation (principal); I85.00 Esophageal varices without bleeding; K31.819 Angiodysplasia of stomach and duodenum without bleeding; K57.10 Diverticulosis of small intestine without perforation or abscess without bleeding; R12 Heartburn
CPT/HCPCS: 43239; 88305; 88342

== ENCOUNTER → 2023-12-20 11:44 | Outpatient (REF) | payer MEDICARE, OTHER, SELFPAY | LOC: HWRAD 11:44 | PROVIDERS: ATTENDING PHYSICIAN Internal Medicine; FAMILY PHYSICIAN Internal Medicine | DX: Z87.891 Personal history of nicotine dependence (principal) | CPT/HCPCS: 71271 ==

== ENCOUNTER → 2024-01-07 12:00 | Outpatient (REF) | payer MEDICARE, OTHER, SELFPAY | LOC: RAD 12:00 | PROVIDERS: ATTENDING PHYSICIAN Physician Assistant | DX: R91.8 Other nonspecific abnormal finding of lung field (principal) | CPT/HCPCS: 71250 ==

== ENCOUNTER 2024-01-14 06:12 | Day surgery (SDC) | payer MEDICARE, OTHER, SELFPAY ==
--- NOTE | 2024-01-12 11:32 | PTCARENOTE ---
MRSA+ nasal swab on 05/27/23; Manuela Hawley's office was notified. SDS, GI and PACU also notified.
[2024-01-14] VITALS (13 sets, daily range): BP systolic 93–137; BP diastolic 53–65; BMI 20.9
--- NOTE | 2024-01-14 15:35 | W.PN.UPDATE ---
Update Note
Progress Note Update
Patient was seen status post bronchoscopy and she is breathing comfortably all however saturating 88% on 10 L/min nasal cannula. Will give her a DuoNeb treatment. CXR shows no evidence of pneumothorax. Will also give a dose of Solumedrol and if
she ends up going home, will send with prednisone taper, otherwise if she stays then will continue systemic steroids, DuoNebs ATC with budesonide, monitor her BG, and continue aspiration precautions. If she does get admitted, would hold off on
anticoagulation even for DVT ppx as there was bleeding during today's case treated with chilled NS and thrombin with complete hemostasis achieved by the procedure's end. Will continue to keep close eye on patient in PACU, and if not significantly
improved O2 needs back to her baseline then she will require admission with pulmonary consult.
When I saw the pt she was saturating 91% on 6L/min with HR 76 and BP 117/62, and she was feeling ok and breathing comfortably.
On exam:
NAD, pleasant mood
NC/AT; PERRL/EOMI
No tracheal deviation
+S1/S2; no m/r/c
Rhonchi/rales bilaterally with faint expiratory wheezing; no accessory muscle use seen
Soft/NT; +BS
Cooperative
No LE edema
I discussed the above plan with the POWER LINEMAN TECHNICIAN, Leatha Gonzales.
[2024-01-14] MEDS: DUONEB 3 ML INH (15:46)
[2024-01-14] MEDS: PULMICORT 0.5 MG INH (15:46)
[2024-01-14] MEDS: SOLU-MEDROL PF 125 MG IV (15:49)
== END 2024-01-14 19:29 | disposition home or self-care (01) ==
LOC: SDS 06:12
PROVIDERS: ATTENDING PHYSICIAN Internal Medicine Critical Care Medicine
DX: R91.1 Solitary pulmonary nodule (principal); R93.89 Abnormal findings on diagnostic imaging of other specified body structures; R06.02 Shortness of breath
CPT/HCPCS: 31629; 31624; 31627; 31623; 31652; 31628; 88172; 88173; 88305; 71045; 76000; 87015; 87070; 87077; 87102; 87116; 87186; 87205; 88112; 88333; 88334; 94640; C1887

== ENCOUNTER 2024-03-07 19:13 | Inpatient (IN) | payer MEDICARE, OTHER, SELFPAY ==
[2024-03-07] VITALS (24 sets, daily range): BP systolic 86–107; BP diastolic 45–73; PULSE 2–98; BMI 21.4
--- NOTE | 2024-03-07 17:47 | ED.GENMED ---
History of Present Illness
General
Chief Complaint: Breathing Problem
Source: patient and ambulance crew
Exam Limitations: none
Time Seen by Provider: 03/07/24 17:41
Nursing documentation reviewed up to this point in time: agreed with
History of Present Illness
History of Present Illness:
69-year-old female presents emergency department from [facility] via EMS for worsening shortness of breath. Staff noticed her oxygen saturation was in the 60s to 70s on her chronic 3 L nasal cannula per EMS. She was 91% on 4 L in triage. She
complains of lethargy and poor oral intake.
Past History
Past History
ED Past Medical History: Arrthythmia (Atrial fibrillation), COPD, Other (cirrhosis of liver) and Other (neuropathy)
ED Past Surgical History: Orthopedic
Social History
Tobacco: Former smoker
Alcohol: None
Drug: None
Living: group home
Review of Systems
Review of Systems
Allergies reviewed?: Yes
All Other Systems: Not applicable
Constitutional: Reports fatigue
EENT: Reports no symptoms
Respiratory: Reports trouble breathing
Cardiac: Reports no symptoms
ABD/GI: Reports no symptoms
: Reports no symptoms
Musculoskeletal: Reports no symptoms
Skin: Reports no symptoms
Neurological: Reports no symptoms
Endocrine: Reports no symptoms
Hematologic/Lymphatic: Reports no symptoms
Psychiatric: Reports no symptoms
Phy Exam
Physical Exam
Physical Exam:
Physical Exam
General: Moderate respiratory distress, appears acutely ill, afebrile
Neck: supple. no meningeal signs. normal posterior pharynx
Heart: s1/s2 regular rate and rhythm, no murmur. equal radial
pulses.
HEENT: Pupils equal round reactive to light, EOMI
Lungs: Moderate respiratory distress. Wheezing and rhonchi, decreased breath sounds bilaterally
Abdomen: normal bowel sounds. not tender. no CVAT
Neuro: alert and oriented. no focal neurological deficits cranial nerves II through XII intact
Skin: no rash
Psychiatric: well kept. interactive and cooperative
Extremities: no edema. no calf tenderness. negative homans. good distal pulses
Scores
Heart Failure Risk
Heart Failure Risk Score: Not Applicable
Course
Orders/Labs/Results
Orders:
Orders
03/07/24 17:44
Ipratropium/Albuterol Sulfate [Duoneb] 3 ml .ROUTE .STK-MED ONE
03/07/24 17:45
Electrocardiogram (*1) Stat
Reason for Study: Other
Other Reason for Exam: pneumonia
Cardiac Monitoring- Treatment ONCE
EKG- Treatment ONCE
IV Insert/Care/Rem.- Treatment PRN
Dexamethasone Sod Phosphate [Decadron] 10 mg IV NOW STA
Ipratropium/Albuterol Sulfate [Duoneb] 3 ml INH R NOW STA
Pulse Ox/cont/shift [RESP] Stat
Quantity: 1
03/07/24 17:46
CR Chest Portable - 1 View Urgent
Comment:
Reason For Exam: short of breath
Reason Study Needs to be Portable: Patient Unstable
03/07/24 17:53
Complete Blood Count/With Diff Urgent
Comprehensive Metabolic Panel Urgent
Lactic Acid Q4H
Comment: CANCEL 2nd LACTIC ACID IF 1st LACTIC ACID IS LESS THAN 2
NT-proBNP Urgent
Troponin I Urgent
Blood Culture Q30M
ANTONIO Source: Blood/Venous
Specimen Description:
03/07/24 17:57
Blood Culture Q30M
ANTONIO Source: Blood/Venous
Specimen Description:
03/07/24 18:05
COVID-19 Antigen Urgent
Source: Nasal Swab
Influenza A+B Rapid Molecular Urgent
ANTONIO Source: Nasal Swab
Specimen Description:
03/07/24 18:36
Ipratropium/Albuterol Sulfate [Duoneb] 3 ml INH R NOW STA
03/07/24 18:56
0.9% Sodium Chloride 1000 ml [Nss] 1,000 ml IV BOLUS
03/07/24 18:57
Admit/Transfer Patient As Directed
Co-Sign Provider:
Level of Care: Inpatient admission
Assign to:: IMU- Intermediate Care
Physician / Group: kassidy
Diagnosis: acute on chronic hypoxic respiratory failur
Reason for Hospitalization: acute hypoxic respiratory failure COPD exacerbation
pneumonia
Expected length of stay greater than two midnights?: Yes
ELOS- Estimated Length of Stay in days: 3
I certify the patient meets the requirements for IP care: Yes
03/07/24 18:58
PRN Pain Medication Management As Directed
May give lesser potent ordered pain med per pt: Yes
preference::
Protocol:: Medication orders for pain may be administered in a
manner that supports deferring to patient preference
when the pt is:
- Requesting an ordered lesser potent pain medication.
Least to most potent pain medications are defined
as: acetaminophen < NSAID < tramadol < opioids
(morphine, oxycodone, hydromorphone).
- Requesting a lesser dose of the same medication IF
ORDERED.
- Requesting a less intrusive route of administration
if both routes are prescribed by the provider (PO <
IV).
03/07/24 18:59
Code Status As Directed
Resuscitation Status: Full Code
03/07/24 19:03
CefTRIAXone [Rocephin] 1,000 mg IV NOW STA
Doxycycline Hyclate [Vibramycin] 100 mg 0.9% Sodium Chloride 250 ml [Nss] 250 ml IV NOW
03/07/24 19:09
Sterile Water [Sterile Water For Injection] 10 ml IV NOW STA
03/07/24 21:45
Lactic Acid Q4H
Comment: CANCEL 2nd LACTIC ACID IF 1st LACTIC ACID IS LESS THAN 2
Abnormal Lab Results
03/07/24
17:53
RBC 3.92 L 10^6/uL
(4.20-5.40)
Hgb 11.0 L g/dL
(12.0-16.0)
Hct 34.3 L %
(37.0-47.0)
MCHC 32.1 L g/dL
(33.0-37.0)
RDW 15.5 H %
(11.5-14.5)
Plt Count 99 L 10^3/uL
(130-400)
MPV 10.9 H fL
(7.4-10.4)
Absolute Lymphs (auto) 0.7 L 10^3/uL
(1.2-3.4)
Absolute Monos (auto) 0.9 H 10^3/uL
(0.1-0.6)
Immature Gran % 0.6 H %
(0-0.5)
Lymphocytes % 14.8 L %
(20.5-51.1)
Monocytes % 17.4 H %
(1.7-9.3)
Sodium 133 L mmol/L
(135-145)
Chloride 97 L mmol/L
(98-107)
BUN 22 H mg/dl
(7-17)
Glucose 120 H mg/dl
(70-99)
Lactic Acid 2.1 H mmol/L
(0.7-2.0)
Total Bilirubin 1.6 H mg/dl
(0.2-1.3)
Troponin I 0.050 H* ng/ml
Albumin 3.3 L g/dl
(3.5-5.0)
03/07/24 17:53
03/07/24 17:53
Vital Signs
Initial and Last Documented VS:
Initial Vital Signs
Temp Pulse Resp BP Pulse Ox
98.4 F 81 18 86/46 93
03/07/24 16:31 03/07/24 16:31 03/07/24 16:31 03/07/24 16:31 03/07/24 16:31
Last Documented Vital Signs
Temp Pulse Resp BP Pulse Ox
98.4 F 88 17 96/53 98
03/07/24 16:31 03/07/24 18:45 03/07/24 18:45 03/07/24 18:45 03/07/24 18:58
MDM/Problems Addressed
Differential Diagnosis Includes:
Pneumonia, COPD, CHF
MDM/Problems Addressed:
69-year-old female with COPD exacerbation, hypoxia. Improved with BiPAP and DuoNebs. Admit to hospitalist.
Chronic conditions affecting care: COPD
Acute Exacerbation and/or Progression of Chronic Illness: COPD
*Radiology
Radiology exam reviewed: preliminary read by ED provider (Chest x-ray no acute findings)
*Pulse Oximetry
Patient hypoxic: yes
*EKG
Interpreted by ED Provider?: Yes
EKG Intrepretation Date: 03/07/24
EKG Intrepretation Time: 17:55
Interpretation: normal
Comparison EKG: no comparison EKG present
Heart Rate: 81
Rate: normal
Rhythm: sinus
[place]: normal axis
Interval: normal interval
QRS Pattern: normal QRS
Ischemia: no ischemia
*Files Supervisor Interpretation
Rate: normal
Interpretation: normal
Heart Rate: 80
Rhythm: sinus
*Critical Care Note
Total Time (30-74mins, 75-104mins- exclusive of procedures): 30
comment:
Critical care statement: A total of 30 minutes of critical care time was provided for this patient. This includes management of unstable vital signs, evaluation of the patient at bedside, reviewing the patient's pertinent medical records, discussion
with consultants, review of old EKGs and review of pertinent medical records. This time with separate from time utilized to perform the aforementioned documented procedures
Data Reviewed
Review of Other/Old Records Reveals: Radiology Studies (Prior chest x-ray also shows right-sided scarring)
Source: records
Further Testing Considered But Not Given:
CT chest not indicated
Patient Management
Social determinants of health affecting care: Living situation
Discussion with other providers: Hospitalist
Escalation/DeEscalation of care consider admission/obs:
Admission indicated
ED Attending Note
-
Portions of this chart may have been created with voice recognition software.� Occasional wrong word or��sound alike� substitutions may have occurred due to the inherent limitations of voice recognition software.
Discharge Plan
Departure
Patient Disposition: Admit
Date of Disposition: 03/07/24
Time of Disposition: 18:37
Admit to: IMU
Presentation/result/management discussed w/ accepting MD/DO: Hospitalist
Patient with high blood pressure during this ER visit?: No
Condition: Fair
Discharge Problem:
Acute exacerbation of chronic obstructive pulmonary disease, Acute respiratory insufficiency
Interventions
Interventions:
*Risk Screen - Suicide Last Done: 03/07/24 16:31
*General Assessment Last Done: 03/07/24 16:31
*Neglect/Abuse Screening Last Done: 03/07/24 16:31
ED- Fall Risk Assessment Last Done: 03/07/24 18:02
*ED COVID-19 Vaccine History Last Done: 03/07/24 18:01
ED- Cardiac Assessment Last Done: 03/07/24 18:02
ED- Pulmonary Assessment Last Done: 03/07/24 18:58
[2024-03-07] MEDS: DECADRON 10 MG IV (17:52)
[2024-03-07] MEDS: DUONEB 3 ML INH ×3 (17:52→23:09)
[2024-03-07 18:09] LABS: % Basophils 0.4 % (0-2); % Eosinophils 0.4 % (0-6); % Immature Granulocytes 0.6 % (0-0.5); % Lymphocytes 14.8 % (20.5-51.1); % Monocytes 17.4 % (1.7-9.3); % Neutrophils 66.4 % (42.2-75.2); Absolute Lymphocytes 0.7 10^3/uL (1.2-3.4); Absolute Monocytes 0.9 10^3/uL (0.1-0.6); Absolute Neutrophils 3.3 10^3/uL (1.4-6.5); Hematocrit 34.3 % (37.0-47.0); Mean Corp Hgb Conc. 32.1 g/dL (33.0-37.0); Mean Corpuscular Hgb 28.1 pg (27.0-31.0); Mean Corpuscular Volume 87.5 fL (81.0-99.0); Mean Platelet Volume 10.9 fL (7.4-10.4); Nucleated Red Blood Cells % 0 %; Platelet Count 99 10^3/uL (130-400); Red Blood Cell Count 3.92 10^6/uL (4.20-5.40); Red Cell Dist. Width 15.5 % (11.5-14.5)
[2024-03-07 18:14] LABS: Lactic Acid 2.1 mmol/L (0.7-2.0)
[2024-03-07 18:19] LABS: ALT (SGPT) 17 U/L (0-35); AST (SGOT) 31 U/L (14-36); Albumin 3.3 g/dl (3.5-5.0); Alkaline Phosphatase 116 U/L (38-126); Blood Urea Nitrogen 22 mg/dl (7-17); Calcium 8.7 mg/dl (8.4-10.2); Carbon Dioxide 27 mmol/L (22-30); Chloride 97 mmol/L (98-107); Estimated Creatinine Clearance 41 ml/min; Glucose 120 mg/dl (70-99); Potassium 4.1 mmol/L (3.5-5.1); Sodium 133 mmol/L (135-145); Total Bilirubin 1.6 mg/dl (0.2-1.3); Total Protein 6.5 g/dl (6.3-8.2); eGFR > 60.00
[2024-03-07 18:26] LABS: COVID-19 Antigen Negative (Negative)
[2024-03-07 18:32] LABS: NT-proBNP 2260 pg/ml
--- NOTE | 2024-03-07 18:38 | HPS.HSE ---
Family Physician
-
Family Physician:
Chief Complaint
-
sob
cough pain
chest pain
MAY
History of Present Illness
69-year-old female with past medical history for cirrhosis of liver, depression, anxiety, chronic pain, COPD, chronic hypoxic respiratory failure uses 3 L of oxygen, GERD worsening short of breath since Wednesday. Patient stated cough is productive
with thick yellow sputum. She has been complaining of frontal headache denies fever, chills . She is complaining of chest pain with the cough. Denies abdominal pain, nausea, vomiting. She had diarrhea for the past few days which resolved. denied
dysuria hematuria. Patient was noted hypoxic at group home on 3 L. Patient was sent to ER.
At present she is requiring CPAP. Patient received nebulizer treatment and Decadron in ER. Admitted for further management
Medical History
Past Medical History
Past Medical History: Reports Other
Additional Past Medical History:
Cirrhosis of liver without ascites
Depression
Anxiety
Chronic pain
Thrombocytopenia
Dysphagia
COPD
Chronic hypoxic respiratory failure
Edema
GERD
Esophageal varices
Hepatic encephalopathy
Past Surgical History: Reports Other
Additional Past Surgical History:
Bilateral hip replacement
Back surgery
Social History
Tobacco: Former Smoker
Alcohol: Former
Drug: None
Living: Assisted Living
Family History
Family History: Not pertinent
Allergies / Home Medications
Allergies reflects when Allergies were last updated in [employer].
Home Medications with original date entered in [employer]
Allergy/Medication List:
Allergies
Allergy/AdvReac Type Severity Reaction Status Date / Time
No Known Allergies Allergy Verified 03/07/24 16:30
Home Medications
furosemide 20 mg tablet 20 mg PO DAILY Fluid Retention/Swelling 01/29/23
lactulose 10 gram/15 mL oral solution 15 ml PO TID Liver Issues 01/29/23
bisacodyl 10 mg rectal suppository (Dulcolax (bisacodyl)) 10 mg DE DAILYPRN PRN if MOM ineffective after 24 hrs 05/27/23
gabapentin 400 mg capsule 400 mg PO TID Nerve pain 05/27/23
magnesium hydroxide 400 mg/5 mL oral suspension (Milk of Magnesia) 30 ml PO [id number] PRN if no BM in 3 days 05/27/23
melatonin 5 mg tablet 5 mg PO HS Sleep 05/27/23
polyethylene glycol 3350 17 gram oral powder packet (Miralax) 17 g PO DAILYPRN PRN constipation 05/27/23
sertraline 25 mg tablet 25 mg PO DAILY Mental Health/Anxiety 05/27/23
spironolactone 25 mg tablet 25 mg PO DAILY Fluid Retention/Swelling 05/27/23
lorazepam 0.5 mg tablet 0.5 mg PO [id number] PRN anxiety #10 tabs 05/31/23
acetaminophen 325 mg tablet (Tylenol) 650 mg PO Q4HPRN PRN mild pain/temp>100F 08/14/23
fluticasone 100 mcg-salmeterol 50 mcg/dose blistr powdr for inhalation (Advair Diskus) 1 inh inhalation R QPM 08/14/23
ketoconazole 2 % shampoo 1 applic topical MOTH Skin Issues 08/14/23
sodium phosphates 19 gram-7 gram/118 mL enema (Fleet Enema) 118 ml DE DAILYPRN PRN if no bm aftr dulcolax 08/14/23
umeclidinium 62.5 mcg/actuation blister powder for inhalation (Incruse Ellipta) 1 inh inhalation R DAILY Lung/Breathing Issues 08/14/23
ursodiol 300 mg capsule 300 mg PO BID gallstones 08/14/23
calcium carbonate 1,000 mg PO Q8HPRN PRN reflux/indigestion 01/13/24
famotidine 20 mg tablet (Pepcid) 20 mg PO DAILY 01/13/24
hydrocodone 5 mg-acetaminophen 325 mg tablet 1 tab PO [id number] PRN moderate to severe pain 01/13/24
magnesium glycinate 100 mg (as glycinate) tablet 100 mg PO HS 01/13/24
rifaximin 550 mg tablet 550 mg PO BID 01/13/24
hydrocortisone 1 % topical cream 1 applic topical BID 03/07/24
ipratropium 0.5 mg-albuterol 3 mg (2.5 mg base)/3 mL nebulization soln 3 ml inhalation R Q6HPRN PRN shortness of breath or wheezing 03/07/24
Review of Systems
-
Constitutional: Reports No Symptoms
EENT: Reports No Symptoms
Respiratory: Reports Cough and Trouble Breathing
Cardiac: Reports No Symptoms
Abdomen/GI: Reports Diarrhea
: Reports No Symptoms
Musculoskeletal: Reports No Symptoms
Skin: Reports No Symptoms
Neurological: Reports No Symptoms
Endocrine: Reports No Symptoms
Hematologic/Lymphatic: Reports No Symptoms
Psych: Reports No Symptoms
Physical Exam
Vital Signs
Vital Signs
Temp Pulse Resp BP Pulse Ox
98.4 F 82 19 93/73 94
03/07/24 16:31 03/07/24 18:00 03/07/24 18:00 03/07/24 18:00 03/07/24 18:14
Physical Exam
General: Well Developed, Well Nourished and No Apparent Distress
HEENT: NormoCephalic, Moist mucous membranes and Atraumatic
Respiratory: Wheezes and Rales
Cardiac: S1/S2 and Regular Rhythm; No Murmur or Rub
GI: Soft, Non Tender, Non Distended and Normal Bowel Sounds; No Organomegaly
Rectal: Deferred by Provider
Musculoskeletal: No Clubbing, No Cyanosis and No Edema
Skin: No Rash
Neuro: AO x 3 and Nonfocal/grossly intact
Psych: Calm
Laboratory Results
-
03/07/24 17:53
03/07/24 17:53
Laboratory Results
Lactic Acid 2.1 mmol/L (0.7-2.0) H 03/07/24 17:53
Total Bilirubin 1.6 mg/dl (0.2-1.3) H 03/07/24 17:53
AST 31 U/L (14-36) 03/07/24 17:53
ALT 17 U/L (0-35) 03/07/24 17:53
Alkaline Phosphatase 116 U/L (38-126) 03/07/24 17:53
Troponin I 0.050 ng/ml H* 03/07/24 17:53
Data Reviewed
-
Lab Data: Labs Reviewed by me
Impression/Plan
-
# Acute on chronic hypoxic respiratory failure secondary to COPD exacerbation
#possible acute bronchitis
-Patient is requiring BiPAP
-Patient with baseline 3 L
-COVID-negative
-Negative influenza A and B
-Chest x-ray with the impression of Mild opacity in the right mid and lower lung again seen without significant change, most likely representing scarring.Pulmonary vascularity at least top normal.
-Blood cultures sent from ER
-Steroids and nebs continued
-ceftriaxone and doxy empirically treat for pneumonia
# Anemia of chronic disease
-Hemoglobin stable at 11.0
-No active bleeding
-Continue to monitor
# Elevated troponin likely NSTEMI
-Troponin 0.050
-EKG with normal sinus
-stated chest pain from cough
-Will continue to trend Trope
# Hypotension
-Normal saline continued
# Hepatic Cirrhosis:
-Hold home diuretics
- lactulose and Xifaxan continued
#Depression anxiety:
-Continue sertraline and lorazepam
-Monitor mental status and behavior
# Chronic pain syndrome with narcotic dependence:
-Continue home narcotics
-Continue gabapentin
DVT prophylaxis:
Lovenox 40 mg SQ daily
CODE STATUS:
Full code
[2024-03-07] MEDS: NSS 1000 IV ×2 (19:00→23:50)
--- NOTE | 2024-03-07 19:04 | W.PN.UPDATE ---
Update Note
Progress Note Update
This is an addendum to the H&P written by Carina Caro on 03/07/2024. Patient seen and examined independently with MOTOR [employer].
69-year-old female past medical history of COPD on 3 L baseline, alcoholic cirrhosis, hepatic encephalopathy, anxiety/depression, peripheral neuropathy, presenting from [facility] for worsening shortness of breath. O2 sat of 60 to 70s on 3 L.
Patient with blood pressure of 90s systolic. Patient afebrile. On examination she has coarse rhonchi bilaterally. She appears hypovolemic.
COVID and influenza negative. Labs show stable mild thrombocytopenia. Lactate of 2.1. Cardiac BNP of 2200.
Chest x-ray shows mild opacity in the right mid and lower lung without significant change likely scarring.
Patient likely with acute bronchitis/COPD exacerbation. She is currently on BiPAP breathing comfortably. However given hypotension will empirically treat for abscess secondary to pneumonia. Start IV fluids. DuoNebs every 6 hours. Dexamethasone.
Blood cultures pending. Ceftriaxone/doxycycline. Hold Lasix, spironolactone due to hypotension.
[2024-03-07] MEDS: ROCEPHIN 1000 MG IV (19:11)
[2024-03-07] MEDS: STERILE WATER FOR INJECTION 10 ML IV (19:11)
[2024-03-07] MEDS: VIBRAMYCIN 260 MG IV (19:31)
[2024-03-07] MEDS: ADVAIR HFA 45/21 MCG INHALER INH (23:04)
[2024-03-07] MEDS: ACTIGALL 300 MG PO (23:49)
[2024-03-07] MEDS: MELATONIN 5 MG PO (23:49)
[2024-03-07] MEDS: HYDROCORTISONE 1% CREAM TOPICAL (23:49)
[2024-03-07] MEDS: MUCINEX 1200 MG PO (23:49)
[2024-03-07] MEDS: XIFAXAN 550 MG PO (23:50)
[2024-03-07] MEDS: MAG-TAB SR 84 MG PO (23:50)
[2024-03-07] MEDS: NEURONTIN 300 MG PO (23:50)
[2024-03-07] MEDS: ATIVAN 0.5 MG PO (23:50)
[2024-03-07] MEDS: DUPHALAC/CHRONULAC 10 GRAMS PO (23:50)
[2024-03-08] VITALS (20 sets, daily range): BP systolic 83–116; BP diastolic 44–99; PULSE 2–64; O2SAT 95; BMI 20.7
[2024-03-08 00:20] LABS: Lactic Acid 1.1 mmol/L (0.7-2.0)
[2024-03-08 00:35] LABS: Troponin I 0.028 ng/ml
[2024-03-08] MEDS: DECADRON 4 MG IV ×3 (02:55→17:56)
[2024-03-08] MEDS: NSS 250 IV (05:57)
--- NOTE | 2024-03-08 06:03 | PTCARENOTE ---
Received patient from the ED overnight on BIPAP. Soft BPs with maps below 65 in the AM. calliope player provider made aware and ordered 250 ml NS bolus. Patient weaned from bipap to 8 liters midflow.
[2024-03-08] MEDS: DUONEB INH (07:20)
[2024-03-08] MEDS: SPIRIVA RESPIMAT 2.5 MCG 2 PUFF INH (07:21)
--- NOTE | 2024-03-08 09:27 | PTCARENOTE ---
Patient currently working with physical therapy.
[2024-03-08] MEDS: PEPCID PO (09:56)
[2024-03-08] MEDS: HYDROCORTISONE 1% CREAM TOPICAL (09:56)
--- NOTE | 2024-03-08 09:56 | W.PN.HOSP.TC ---
Today's Communication/Plan
-
see bold
Assessment / Plan
Assessment / Plan
HPI: 69-year-old female past medical history of COPD on 3 L baseline, alcoholic cirrhosis, hepatic encephalopathy, anxiety/depression, peripheral neuropathy, presenting from [facility] for worsening shortness of breath. O2 sat of 60 to 70s on 3
L.
Patient with blood pressure of 90s systolic. Patient afebrile. On examination she has coarse rhonchi bilaterally. She appears hypovolemic.
COVID and influenza negative. Labs show stable mild thrombocytopenia. Lactate of 2.1. Cardiac BNP of 2200.
Chest x-ray shows mild opacity in the right mid and lower lung without significant change likely scarring.
Patient likely with acute bronchitis/COPD exacerbation. She is currently on BiPAP breathing comfortably. However given hypotension will empirically treat for abscess secondary to pneumonia. Start IV fluids. DuoNebs every 6 hours. Dexamethasone.
Blood cultures pending. Ceftriaxone/doxycycline. Hold Lasix, spironolactone due to hypotension.
# Acute on chronic hypoxic respiratory failure secondary to COPD exacerbation
#possible acute bronchitis
Status post BiPAP, currently requiring 6 L of oxygen, wean as tolerated. She wears 3 at baseline
COVID and flu negative
Chest x-ray with the impression of Mild opacity in the right mid and lower lung again seen without significant change, most likely representing scarring.Pulmonary vascularity at least top normal.
Continue IV steroids, bronchodilators
Continue ceftriaxone and doxy D2 empirically treat for pneumonia
# Hypotension without shock
Blood pressure improved on IV fluids, continue
To hold spironolactone and Lasix for now
#Nicotine dependency
Patient has been vaping at [facility]
Ordered nicotine patch
#Nocturnal bradycardia
She is not on any beta-blockers
Check echocardiogram
# Anemia of chronic disease
-No active bleeding
-Continue to monitor
# Troponin elevation from nonischemic myocardial injury
-Has chest pain with coughing, likely musculoskeletal
# Hepatic Cirrhosis:
-Hold spironolactone and Lasix due to soft blood pressure
-Continue lactulose and Xifaxan
#Depression anxiety:
-Continue sertraline and lorazepam
-Monitor mental status and behavior
# Chronic pain syndrome with narcotic dependence:
-Continue home narcotics
-Continue gabapentin
DVT prophylaxis - Lovenox 40 mg SQ daily
CODE STATUS - Full code
Total time spent to see the patient on the floor, examine the patient, review data and lab results, discuss treatment plan with patient, nursing staff around 53 minutes.
Physical Exam
General: No acute distress
HEENT: Normocephalic, Atraumatic, EOMI, MMM
Respiratory: Clear to Auscultation bilaterally
Cardiac: Normal S1/S2, Regular Rate and Rhythm
GI: Soft, Nontender, Nondistended, Normal Bowel Sounds
Extremities: No Clubbing, Cyanosis, or Edema
Neuro: Nonfocal/Grossly Intact
Psych: Calm, Cooperative
Derm: No Visible lesions
Anticipated Discharge: > 48 hours
Subjective/Interval History
-
Date of Service: March 08, 2024
Nursing staff reports patient was bradycardic overnight, as low as 36. She was sleeping. Patient denies shortness of breath. She does have a cough. No fever, no vomiting.
Objective Data
-
Vital Signs:
Vital Signs
Temp Pulse Resp BP Pulse Ox
97.2 F 59 15 93/53 94
03/08/24 07:50 03/08/24 09:40 03/08/24 09:40 03/08/24 09:40 03/08/24 09:40
I&O
03/07/24 03/08/24 03/09/24
06:59 06:59 06:59
Intake Total 360 / 360
Output Total 200 / 200
Balance 160 / 160
[2024-03-08] MEDS: ACTIGALL 300 MG PO ×2 (09:57→20:23)
[2024-03-08] MEDS: DUPHALAC/CHRONULAC 10 GRAMS PO ×3 (09:57→21:32)
[2024-03-08] MEDS: MUCINEX 1200 MG PO ×2 (09:58→20:24)
[2024-03-08] MEDS: NEURONTIN 300 MG PO ×3 (09:58→21:32)
[2024-03-08] MEDS: XIFAXAN 550 MG PO ×2 (09:59→20:24)
[2024-03-08] MEDS: VIBRAMYCIN 260 MG IV ×2 (09:59→20:24)
[2024-03-08] MEDS: ZOLOFT 25 MG PO (09:59)
[2024-03-08] MEDS: ATIVAN 0.5 MG PO ×2 (10:02→22:29)
--- NOTE | 2024-03-08 10:49 | PTCARENOTE ---
Assumed care of patient this morning. She is aaox3 and reports she feels better, however, patient still dyspneic at rest. Pt trails off at the end of short sentences and SPO2 dropped to mid 80s with talking. She worked with PT and denies feeling
short of breath with exertion, SPO2 only dropped to 89%. Pt remains on 8L midflow, currently 94%. Lungs are coarse with wheezing. Pt's purewick removed this morning, pt reports continence. She has no other complaints this morning. Assessment, care
and VS as charted.
--- NOTE | 2024-03-08 10:53 | CM ---
Addendum entered by Meghan Clifford RN 03/08/24 14:24:
CM Consult: Advanced Directive
Met with patient, Adv Directive Forms provided with instructions to provide to nurse once completed.
Original Note:
Patient from [facility]. O2 8L. BiPAP. Receiving IVF, IV Decadron, 2 IV Abx. PT/OT recommend skilled rehab,
Spoke with Odalys, [facility];
the patient resides there in LTC on an [place] bed hold.
She is A/O at baseline, requires assist of 1 for bed mobility, setup for transfers, supervision for ambulation, setup for ADLs.
The patient has O2 but no BiPAP.
She was caught vaping in her room, and is not on a Nicotine Patch---> info relayed to Dr Braun.
PCP - Douglas Conner
Pharmacy - [facility]
The ph for report [phone], fax [phone].
PT notated that patient uses her own rollator when going out with daughter.
Plan watch for O2 needs at discharge.
Plan return to [facility] when medically ready.
[2024-03-08] MEDS: VENTOLIN NEBULES 2.5 MG INH ×3 (11:18→19:39)
--- NOTE | 2024-03-08 12:32 | PTCARENOTE ---
was at the bedside rounding on patient and made aware patient's HR dropping to 30s overnight while sleeping. While awake during the day, HR's 50s-60s.
[2024-03-08] MEDS: NICODERM TRANSDERMAL 14 MG TRANSDERM (15:51)
[2024-03-08] MEDS: NSS 1000 IV (17:56)
[2024-03-08] MEDS: LOVENOX 40 MG SC (17:57)
[2024-03-08] MEDS: ADVAIR HFA 45/21 MCG INHALER 2 PUFF INH (19:40)
[2024-03-08] MEDS: HYDROCORTISONE 1% CREAM 1 APPLIC TOPICAL (20:23)
[2024-03-08] MEDS: ROCEPHIN 1000 MG IV (20:26)
[2024-03-08] MEDS: STERILE WATER FOR INJECTION 10 ML IV (20:27)
[2024-03-08] MEDS: MELATONIN 5 MG PO (21:32)
[2024-03-08] MEDS: MAG-TAB SR 84 MG PO (21:32)
[2024-03-09] VITALS (13 sets, daily range): BP systolic 97–128; BP diastolic 40–77; PULSE 2–74
[2024-03-09] MEDS: DECADRON 4 MG IV ×3 (02:39→17:10)
--- NOTE | 2024-03-09 03:36 | PTCARENOTE ---
Assumed care for patient overnight, received report from monica ONEAL. Pt is AAOx3. NSR to SB on tele. HR down to the low 40's. Soft pressures at times 90s/50s. RT bedside to put patient on the BiPAP, pt is tolerating the BiPAP well. Pt has a moist
harsh cough. Rhonchi throughout the lungs. IV abx administered. Pt had one episode of gross incontinence. Pt having stress incontinence when coughing. Call brown within reach.
[2024-03-09 06:39] LABS: Hematocrit 30.2 % (37.0-47.0); Hemoglobin 9.6 g/dL (12.0-16.0); Mean Corp Hgb Conc. 31.8 g/dL (33.0-37.0); Mean Corpuscular Hgb 27.7 pg (27.0-31.0); Mean Corpuscular Volume 87.3 fL (81.0-99.0); Mean Platelet Volume 11.3 fL (7.4-10.4); Platelet Count 66 10^3/uL (130-400); Red Blood Cell Count 3.46 10^6/uL (4.20-5.40); Red Cell Dist. Width 15.2 % (11.5-14.5); White Blood Cell Count 2.2 10^3/uL (4.8-10.8)
[2024-03-09 07:10] LABS: ALT (SGPT) 17 U/L (0-35); AST (SGOT) 39 U/L (14-36); Albumin 2.9 g/dl (3.5-5.0); Alkaline Phosphatase 98 U/L (38-126); Blood Urea Nitrogen 31 mg/dl (7-17); Calcium 8.4 mg/dl (8.4-10.2); Carbon Dioxide 23 mmol/L (22-30); Chloride 105 mmol/L (98-107); Estimated Creatinine Clearance 58 ml/min; Glucose 138 mg/dl (70-99); Potassium 4.6 mmol/L (3.5-5.1); Sodium 136 mmol/L (135-145); Total Bilirubin 0.7 mg/dl (0.2-1.3); Total Protein 5.8 g/dl (6.3-8.2); eGFR > 60.00
[2024-03-09] MEDS: VENTOLIN NEBULES 2.5 MG INH ×4 (07:34→19:28)
[2024-03-09] MEDS: SPIRIVA RESPIMAT 2.5 MCG 2 PUFF INH (07:36)
[2024-03-09] MEDS: DUPHALAC/CHRONULAC 10 GRAMS PO ×3 (08:10→20:58)
[2024-03-09] MEDS: TYLENOL 650 MG PO (08:10)
[2024-03-09] MEDS: ZOLOFT 25 MG PO (08:11)
[2024-03-09] MEDS: NEURONTIN 300 MG PO ×3 (08:11→20:59)
[2024-03-09] MEDS: ACTIGALL 300 MG PO ×2 (08:11→20:57)
[2024-03-09] MEDS: MUCINEX 1200 MG PO ×2 (08:11→20:57)
[2024-03-09] MEDS: NICODERM TRANSDERMAL 14 MG TRANSDERM (08:11)
[2024-03-09] MEDS: XIFAXAN 550 MG PO ×2 (08:12→20:58)
[2024-03-09] MEDS: HYDROCORTISONE 1% CREAM TOPICAL (08:12)
[2024-03-09] MEDS: PEPCID PO (08:12)
[2024-03-09] MEDS: ATIVAN 0.5 MG PO ×2 (08:17→20:59)
--- NOTE | 2024-03-09 08:47 | W.PN.HOSP.TC ---
Today's Communication/Plan
-
see bold
Assessment / Plan
Assessment / Plan
HPI: 69-year-old female past medical history of COPD on 3 L baseline, alcoholic cirrhosis, hepatic encephalopathy, anxiety/depression, peripheral neuropathy, presenting from [facility] for worsening shortness of breath. O2 sat of 60 to 70s on 3
L.
Patient with blood pressure of 90s systolic. Patient afebrile. On examination she has coarse rhonchi bilaterally. She appears hypovolemic.
COVID and influenza negative. Labs show stable mild thrombocytopenia. Lactate of 2.1. Cardiac BNP of 2200.
Chest x-ray shows mild opacity in the right mid and lower lung without significant change likely scarring.
Patient likely with acute bronchitis/COPD exacerbation. She is currently on BiPAP breathing comfortably. However given hypotension will empirically treat for abscess secondary to pneumonia. Start IV fluids. DuoNebs every 6 hours. Dexamethasone.
Blood cultures pending. Ceftriaxone/doxycycline. Hold Lasix, spironolactone due to hypotension.
# Acute on chronic hypoxic respiratory failure secondary to COPD exacerbation
#possible acute bronchitis
Status post BiPAP, currently requiring 6 L of oxygen, wean as tolerated. She wears 3 at baseline
COVID and flu negative
Chest x-ray with the impression of Mild opacity in the right mid and lower lung again seen without significant change, most likely representing scarring.Pulmonary vascularity at least top normal.
Continue IV steroids, bronchodilators
Continue ceftriaxone and doxy D3 empirically treat for pneumonia
# Hypotension without shock
Blood pressure improved on IV fluids, can stop today
Hold spironolactone and Lasix
#Nicotine dependency
Patient has been vaping at [facility]
Ordered nicotine patch
#Nocturnal bradycardia
She is not on any beta-blockers
Check echocardiogram
# Anemia of chronic disease
-No active bleeding
-Continue to monitor
#Leukopenia
#Thrombocytopenia
Likely from infection, monitor
# Troponin elevation from nonischemic myocardial injury
-Has chest pain with coughing, likely musculoskeletal
# Hepatic Cirrhosis:
-Hold spironolactone and Lasix due to soft blood pressure
-Continue lactulose and Xifaxan
#Depression anxiety:
-Continue sertraline and lorazepam
-Monitor mental status and behavior
# Chronic pain syndrome with narcotic dependence:
-Continue home narcotics
-Continue gabapentin
DVT prophylaxis -SCDs secondary to thrombocytopenia
CODE STATUS - Full code
Total time spent to see the patient on the floor, examine the patient, review data and lab results, discuss treatment plan with patient, nursing staff around 53 minutes.
Physical Exam
General: No acute distress
HEENT: Normocephalic, Atraumatic, EOMI, MMM
Respiratory: Coarse breath sounds with mild diffuse wheezing
Cardiac: Normal S1/S2, Regular Rate and Rhythm
GI: Soft, Nontender, Nondistended, Normal Bowel Sounds
Extremities: No Clubbing, Cyanosis, or Edema
Neuro: Nonfocal/Grossly Intact
Psych: Calm, Cooperative
Derm: No Visible lesions
Anticipated Discharge: > 48 hours
Subjective/Interval History
-
Date of Service: March 09, 2024
Patient had a bowel movement. She continues to cough and wheeze. Shortness of breath overall improved. No fever, no vomiting.
Objective Data
-
Labs:
Laboratory Results
03/09/24
06:05
WBC 2.2 L*
Hgb 9.6 L
Hct 30.2 L
Plt Count 66 L D
Sodium 136
Potassium 4.6
Chloride 105
Carbon Dioxide 23
BUN 31 H
Creatinine 0.7
Glucose 138 H
Calcium 8.4
Total Bilirubin 0.7
AST 39 H
ALT 17
Alkaline Phosphatase 98
Vital Signs:
Vital Signs
Temp Pulse Resp BP Pulse Ox
97.2 F 60 18 110/66 93
03/09/24 04:05 03/09/24 06:00 03/09/24 06:00 03/09/24 06:00 03/09/24 06:00
I&O
03/08/24 03/09/24 03/10/24
06:59 06:59 06:59
Intake Total 360 / 360 2069
Output Total 200 / 200
Balance 160 / 160 2069
[2024-03-09] MEDS: VIBRAMYCIN 260 MG IV (09:40)
--- NOTE | 2024-03-09 11:08 | PTCARENOTE ---
Assumed care of patient this morning. Pt assisted x1 with RW into bathroom to get washed up. Pt incontinent of bowel. Full bathing cloths provided and assisted patient with bath. Pt steady on feet but SPO2 dropping while on 4L NC with exertion,
increased to 6L. Pt short of breath at times but able to recover quickly. Pt still has a moist, harsh, nonproductive cough. Assessment, care and VS as charted.
--- NOTE | 2024-03-09 12:00 | PTCARENOTE ---
Patient's daughter Tiffani updated over the phone [phone].
[2024-03-09] MEDS: NSS 1000 IV (13:47)
[2024-03-09] MEDS: LOVENOX 40 MG SC (17:11)
[2024-03-09] MEDS: ADVAIR HFA 45/21 MCG INHALER 2 PUFF INH (19:28)
[2024-03-09] MEDS: HYDROCORTISONE 1% CREAM 1 APPLIC TOPICAL (20:57)
[2024-03-09] MEDS: ROCEPHIN 1000 MG IV (20:57)
[2024-03-09] MEDS: STERILE WATER FOR INJECTION 10 ML IV (20:58)
[2024-03-09] MEDS: VIBRAMYCIN 100 MG PO (20:58)
[2024-03-09] MEDS: MELATONIN 5 MG PO (20:59)
[2024-03-09] MEDS: MAG-TAB SR 84 MG PO (20:59)
--- NOTE | 2024-03-09 23:37 | PTCARENOTE ---
Patient AAOx3, pleasant. One episode of incontinence, reinforced the importance of frequent changes. Full cloth bath, moisture barrier applied. Dentured out and soaking. Mouth wash rinse before being placed on the BiPAP. RT bedside and placed
patient on the BiPAP. Rhonchi and diminished lung sounds. Shallow respirations still with a moist and harsh cough. VSS. Assessment charted. Call brown is within reach.
[2024-03-10] VITALS (11 sets, daily range): BP systolic 90–129; BP diastolic 43–74
[2024-03-10] MEDS: DECADRON 4 MG IV ×3 (01:43→21:15)
[2024-03-10 05:30] LABS: Hematocrit 28.2 % (37.0-47.0); Hemoglobin 8.9 g/dL (12.0-16.0); Mean Corp Hgb Conc. 31.6 g/dL (33.0-37.0); Mean Corpuscular Hgb 27.5 pg (27.0-31.0); Mean Platelet Volume 11.6 fL (7.4-10.4); Platelet Count 74 10^3/uL (130-400); Red Blood Cell Count 3.24 10^6/uL (4.20-5.40); Red Cell Dist. Width 15.3 % (11.5-14.5); White Blood Cell Count 2.7 10^3/uL (4.8-10.8)
[2024-03-10 05:31] LABS: Blood Urea Nitrogen 29 mg/dl (7-17); Calcium 8.3 mg/dl (8.4-10.2); Carbon Dioxide 24 mmol/L (22-30); Chloride 108 mmol/L (98-107); Estimated Creatinine Clearance 51 ml/min; Glucose 148 mg/dl (70-99); Magnesium 1.8 mg/dl (1.6-2.3); Sodium 140 mmol/L (135-145); eGFR > 60.00
[2024-03-10 05:38] LABS: Potassium 4.7 mmol/L (3.5-5.1)
[2024-03-10] MEDS: SPIRIVA RESPIMAT 2.5 MCG 2 PUFF INH (07:33)
[2024-03-10] MEDS: VENTOLIN NEBULES 2.5 MG INH ×4 (07:33→20:31)
--- NOTE | 2024-03-10 09:06 | W.PN.HOSP.TC ---
Today's Communication/Plan
-
Stable for tele
Assessment / Plan
Assessment / Plan
HPI: 69-year-old female past medical history of COPD on 3 L baseline, alcoholic cirrhosis, hepatic encephalopathy, anxiety/depression, peripheral neuropathy, presenting from [facility] for worsening shortness of breath. O2 sat of 60 to 70s on 3
L. Patient with blood pressure of 90s systolic. Patient afebrile. On examination she has coarse rhonchi bilaterally. She appears hypovolemic.
# Acute on chronic hypoxic respiratory failure secondary to COPD exacerbation
#possible acute bronchitis
Status post BiPAP, currently requiring 6 L of oxygen, wean as tolerated. She wears 3 at baseline
COVID and flu negative
Chest x-ray with the impression of Mild opacity in the right mid and lower lung again seen without significant change, most likely representing scarring.Pulmonary vascularity at least top normal.
Wean IV steroids, bronchodilators
Continue ceftriaxone and doxy D4 empirically treat for pneumonia
# Hypotension without shock
Resolved status post IV fluid
#Nicotine dependency
Patient has been vaping at [facility]
Ordered nicotine patch
#Nocturnal bradycardia
She is not on any beta-blockers
Echocardiogram unrevealing
Resolved
# Anemia of chronic disease
-No active bleeding
-Continue to monitor
#Leukopenia
#Thrombocytopenia
Likely from infection, monitor
# Troponin elevation from nonischemic myocardial injury
-Has chest pain with coughing, likely musculoskeletal
# Hepatic Cirrhosis:
-Resume spironolactone and Lasix 03/11
-Continue lactulose and Xifaxan
#Depression anxiety:
-Continue sertraline and lorazepam
-Monitor mental status and behavior
# Chronic pain syndrome with narcotic dependence:
-Continue home narcotics
-Continue gabapentin
DVT prophylaxis -SCDs secondary to thrombocytopenia
CODE STATUS - Full code
Total time spent to see the patient on the floor, examine the patient, review data and lab results, discuss treatment plan with patient, nursing staff around 50 minutes.
Physical Exam
General: No acute distress
HEENT: Normocephalic, Atraumatic, EOMI, MMM
Respiratory: Coarse breath sounds with mild diffuse wheezing
Cardiac: Normal S1/S2, Regular Rate and Rhythm
GI: Soft, Nontender, Nondistended, Normal Bowel Sounds
Extremities: No Clubbing, Cyanosis, or Edema
Neuro: Nonfocal/Grossly Intact
Psych: Calm, Cooperative
Derm: No Visible lesions
Anticipated Discharge: 24 - 48 hours
Subjective/Interval History
-
Date of Service: March 10, 2024
Patient reports chest pain with coughing. Shortness of breath, coughing, and wheezing continue to improve. No fever, no vomiting.
Objective Data
-
Labs:
Laboratory Results
03/10/24
04:55
WBC 2.7 L
Hgb 8.9 L
Hct 28.2 L
Plt Count 74 L
Sodium 140
Potassium 4.7
Chloride 108 H
Carbon Dioxide 24
BUN 29 H
Creatinine 0.8
Glucose 148 H
Calcium 8.3 L
Vital Signs:
Vital Signs
Temp Pulse Resp BP Pulse Ox
97.5 F 62 16 115/59 94
03/10/24 04:49 03/10/24 06:00 03/10/24 06:00 03/10/24 06:00 03/10/24 06:00
I&O
03/09/24 03/10/24 03/11/24
06:59 06:59 06:59
Intake Total 2069
Balance 2069
[2024-03-10] MEDS: MUCINEX 1200 MG PO ×2 (09:25→20:10)
[2024-03-10] MEDS: DUPHALAC/CHRONULAC 10 GRAMS PO ×3 (09:25→21:14)
[2024-03-10] MEDS: ACTIGALL 300 MG PO ×2 (09:25→20:09)
[2024-03-10] MEDS: VIBRAMYCIN 100 MG PO ×2 (09:26→20:13)
[2024-03-10] MEDS: XIFAXAN 550 MG PO ×2 (09:26→20:13)
[2024-03-10] MEDS: PEPCID 20 MG PO (09:26)
[2024-03-10] MEDS: NEURONTIN 300 MG PO ×3 (09:27→21:14)
[2024-03-10] MEDS: ZOLOFT 25 MG PO (09:27)
[2024-03-10] MEDS: ATIVAN 0.5 MG PO ×2 (09:27→21:13)
[2024-03-10] MEDS: NICODERM TRANSDERMAL 14 MG TRANSDERM (09:28)
[2024-03-10] MEDS: HYDROCORTISONE 1% CREAM 1 APPLIC TOPICAL (09:29)
--- NOTE | 2024-03-10 11:17 | PTCARENOTE ---
Pt grossly incontinent of urine- abdomen distended slightly tender- bladder scanned 200ml. Will monitor.
--- NOTE | 2024-03-10 17:46 | PTCARENOTE ---
OOB in chair all day - ambulates to bathroom with assistance- incontinent at times- encouraged to verbalize needs to be toileted. Appetite good 3 meals today. LC diminished- Harsh NPC. Sao2 94% on 3L NC. PRN Ativan given x1 this am as requested.
Report to Laura, transport to 429-1.
[2024-03-10] MEDS: HYDROCORTISONE 1% CREAM TOPICAL (20:10)
[2024-03-10] MEDS: STERILE WATER FOR INJECTION 10 ML IV (20:10)
[2024-03-10] MEDS: ROCEPHIN 1000 MG IV (20:11)
[2024-03-10] MEDS: ADVAIR HFA 45/21 MCG INHALER 2 PUFF INH (20:31)
[2024-03-10] MEDS: MAG-TAB SR 84 MG PO (21:14)
[2024-03-10] MEDS: MELATONIN 5 MG PO (21:14)
--- NOTE | 2024-03-10 21:21 | RESPNOTE ---
Spoke with patient regarding her QHS BiPAP use tonight. Patient wants to try not using device tonight and see how she feels. Unit standby in room. RN informed.
[2024-03-11 03:28] VITALS: BP 125/60
[2024-03-11 07:57] VITALS: BP 131/54
[2024-03-11] MEDS: VENTOLIN NEBULES 2.5 MG INH ×3 (07:58→15:45)
[2024-03-11] MEDS: SPIRIVA RESPIMAT 2.5 MCG 2 PUFF INH (07:58)
--- NOTE | 2024-03-11 08:06 | W.PN.HOSP.TC ---
Today's Communication/Plan
-
Discharge to [facility] today
Assessment / Plan
Assessment / Plan
HPI: 69-year-old female past medical history of COPD on 3 L baseline, alcoholic cirrhosis, hepatic encephalopathy, anxiety/depression, peripheral neuropathy, presenting from [facility] for worsening shortness of breath. O2 sat of 60 to 70s on 3
L. Patient with blood pressure of 90s systolic. Patient afebrile. On examination she has coarse rhonchi bilaterally. She appears hypovolemic.
# Acute on chronic hypoxic respiratory failure
# Acute COPD exacerbation
# Possible overlying pneumonia
Status post BiPAP, currently requiring 3 L of oxygen, down from 6, down from 8. She wears 3 at baseline
COVID and flu negative
Chest x-ray with the impression of Mild opacity in the right mid and lower lung again seen without significant change, most likely representing scarring.Pulmonary vascularity at least top normal.
Resolving on IV steroids & Rocephin/doxycycline day 4
Will discharge on prednisone 40 mg daily for 5 days, cefdinir and doxycycline for 3 days
Follow-up with PCP in 1 week
# Hypotension without shock
Resolved status post IV fluid
#Nicotine dependency
Patient has been vaping at [facility]
Ordered nicotine patch
#Nocturnal bradycardia
She is not on any beta-blockers
Echocardiogram unrevealing
Resolved
# Anemia of chronic disease
-No active bleeding
-Continue to monitor
#Leukopenia
#Thrombocytopenia
Likely from infection, monitor
# Troponin elevation from nonischemic myocardial injury
-Has chest pain with coughing, likely musculoskeletal
# Hepatic Cirrhosis:
-Resumed spironolactone and Lasix 03/11
-Continue lactulose and Xifaxan
#Depression anxiety:
-Continue sertraline and lorazepam
-Monitor mental status and behavior
# Chronic pain syndrome with narcotic dependence:
-Continue home narcotics
-Continue gabapentin
DVT prophylaxis -SCDs secondary to thrombocytopenia
CODE STATUS - Full code
Physical Exam
General: No acute distress
HEENT: Normocephalic, Atraumatic, EOMI, MMM
Respiratory: Coarse breath sounds with mild diffuse wheezing
Cardiac: Normal S1/S2, Regular Rate and Rhythm
GI: Soft, Nontender, Nondistended, Normal Bowel Sounds
Extremities: No Clubbing, Cyanosis, or Edema
Neuro: Nonfocal/Grossly Intact
Psych: Calm, Cooperative
Derm: No Visible lesions
Anticipated Discharge: Today
Subjective/Interval History
-
Date of Service: March 11, 2024
Patient reports her breathing is 90% back to baseline. She feels well. Her coughing and wheezing continue to improve. No fever, no vomiting.
Objective Data
-
Labs:
Laboratory Results
03/11/24
07:32
WBC Pending
Hgb Pending
Hct Pending
Plt Count Pending
Sodium Pending
Potassium Pending
Chloride Pending
Carbon Dioxide Pending
BUN Pending
Creatinine Pending
Glucose Pending
Calcium Pending
Vital Signs:
Vital Signs
Temp Pulse Resp BP Pulse Ox
98.4 F 61 18 125/60 95
03/11/24 03:28 03/11/24 08:02 03/11/24 08:02 03/11/24 03:28 03/11/24 08:02
I&O
03/10/24 03/11/24 03/12/24
06:59 06:59 06:59
Intake Total 1850 / 1850 1340 / 1340
Output Total 300 / 300
Balance 1850 / 1850 1040 / 1040
[2024-03-11 09:09] LABS: Hematocrit 30.7 % (37.0-47.0); Hemoglobin 9.6 g/dL (12.0-16.0); Mean Corp Hgb Conc. 31.3 g/dL (33.0-37.0); Mean Corpuscular Hgb 27.4 pg (27.0-31.0); Mean Corpuscular Volume 87.7 fL (81.0-99.0); Mean Platelet Volume 11.1 fL (7.4-10.4); Platelet Count 84 10^3/uL (130-400); Red Cell Dist. Width 15.5 % (11.5-14.5)
[2024-03-11 09:25] LABS: Blood Urea Nitrogen 26 mg/dl (7-17); Calcium 8.7 mg/dl (8.4-10.2); Carbon Dioxide 26 mmol/L (22-30); Chloride 106 mmol/L (98-107); Estimated Creatinine Clearance 58 ml/min; Glucose 128 mg/dl (70-99); Potassium 4.6 mmol/L (3.5-5.1); Sodium 139 mmol/L (135-145); eGFR > 60.00
[2024-03-11] MEDS: XIFAXAN 550 MG PO (09:38)
[2024-03-11] MEDS: MUCINEX 1200 MG PO (09:38)
[2024-03-11] MEDS: ALDACTONE 25 MG PO (09:38)
[2024-03-11] MEDS: ZOLOFT 25 MG PO (09:38)
[2024-03-11] MEDS: PEPCID 20 MG PO (09:38)
[2024-03-11] MEDS: LASIX 20 MG PO (09:38)
[2024-03-11] MEDS: NEURONTIN 300 MG PO ×2 (09:38→15:01)
[2024-03-11] MEDS: NICODERM TRANSDERMAL 14 MG TRANSDERM (09:39)
[2024-03-11] MEDS: ACTIGALL 300 MG PO (09:39)
[2024-03-11] MEDS: DECADRON 4 MG IV (09:39)
[2024-03-11] MEDS: VIBRAMYCIN 100 MG PO (09:39)
[2024-03-11] MEDS: DUPHALAC/CHRONULAC 10 GRAMS PO ×2 (09:39→15:01)
[2024-03-11] MEDS: HYDROCORTISONE 1% CREAM TOPICAL (09:53)
[2024-03-11 11:15] VITALS: BP 117/53
--- NOTE | 2024-03-11 11:25 | CM ---
CM reviewed chart, patient for discharge today. [facility] for [facility]. Per Lisa Gomes, patient will require ambulance transport and facility will be billed as patient is LTC resident. Patient seen
bedside, agreeable to discharge, IMM reviewed verbally, provided with copy, placed in chart. Patient scheduled for 3:30 p.m. transport. CM will continue to follow for all discharge planning needs.
Plan; return to [facility], 3:30 p.m. ambulance transport
Lisa Gomes
Report [phone],
.
--- NOTE | 2024-03-11 11:33 | W.DCSUMMARY ---
Discharge Summary
Discharge Data
Date of Admission: 03/07/24
Date of Discharge: 03/11/24
-
Pending Results: No
Hospital Course
Discharge diagnosis:
Acute on chronic hypoxic respiratory failure
Acute chronic obstructive pulmonary disease exacerbation
Possible overlying pneumonia
Hypotension without shock
Nicotine dependency
Nocturnal bradycardia
Anemia of chronic disease
Leukopenia
Thrombocytopenia
Nonischemic myocardial injury troponin elevation
Hepatic cirrhosis
Anxiety/depression
Chronic pain syndrome with narcotic dependency
Chest x-ray:
Mild opacity in the right mid and lower lung again seen without significant change, most likely representing scarring.
Hospital course:
69-year-old female with a past medical history of COPD, chronic respiratory failure on 3 L at baseline, hepatic cirrhosis, and chronic pain syndrome with narcotic dependency was admitted for acute on chronic hypoxic respiratory failure secondary to
COPD exacerbation and possible overlying pneumonia. Patient was treated with IV steroids, IV antibiotics, and bronchodilators. She was initially placed on BiPAP, and required 8 L of oxygen.
Patient was hypotensive upon admission. Her blood pressure normalized with IV fluids. She has a history of hepatic cirrhosis. Her Lasix and Aldactone were held upon admission. Her blood pressure increased, and they were resumed on the day of
discharge.
After several days, patient's breathing improved dramatically. She was successfully weaned to 3 L of oxygen, which is her baseline requirement. Her shortness of breath resolved. She is medically stable for discharge back to her halfway. She
will be discharged on prednisone 40 mg daily for 5 more days, and cefdinir/doxycycline for 3 more days. She needs to follow-up with her primary care doctor in 1 week.
Disposition: [facility]
Discharge planning: Required 41 minutes
Discharge Plan
-
Patient Disposition: Penitentiary/SNF
Discharge Diagnosis/Procedures: Acute on chronic hypoxic respiratory failure, COPD exacerbation, possible pneumonia, hypotension, cirrhosis
Condition: Fair
Diet: 2 Gram Sodium
Activity: As tolerated
Driving Restrictions: As prior to admission
Activity Restrictions/Additional Instructions:
Take cefdinir and doxycycline for 3 days.
Take prednisone 40 mg daily for 5 days.
Follow-up with your primary care doctor in 1 week.
Referrals:
Douglas Conner I., DO [Family Provider] - in one week
Prescriptions:
New
guaifenesin 600 mg Tablet Extended Release 12hr
1,200 mg PO Q12 10 Days Qty: 40 0RF
doxycycline hyclate 100 mg Capsule
100 mg PO Q12 3 Days Qty: 6 0RF
nicotine 14 mg/24 hr Patch 24 Hour
14 mg transdermal DAILY Qty: 30 0RF
cefdinir 300 mg capsule
300 mg PO BID 3 Days Qty: 6 0RF
prednisone 20 mg tablet
40 mg PO DAILY 5 Days Qty: 10 0RF
Continued
furosemide 20 mg Tablet
20 mg PO DAILY
lactulose 10 gram/15 mL Solution
15 ml PO TID
gabapentin 400 mg Capsule
400 mg PO TID
magnesium hydroxide [Milk of Magnesia] 400 mg/5 mL Suspension
30 ml PO [id number] PRN (Reason: if no BM in 3 days)
bisacodyl [Dulcolax (bisacodyl)] 10 mg Suppository
10 mg AK DAILYPRN PRN (Reason: if MOM ineffective after 24 hrs)
melatonin 5 mg Tablet
5 mg PO HS
polyethylene glycol 3350 [Miralax] 17 gram Powder In Packet
17 g PO DAILYPRN PRN (Reason: constipation)
spironolactone 25 mg Tablet
25 mg PO DAILY
sertraline 25 mg Tablet
25 mg PO DAILY
lorazepam 0.5 mg Tablet
0.5 mg PO [id number] PRN (Reason: anxiety) Qty: 10 0RF
acetaminophen [Tylenol] 325 mg Tablet
650 mg PO Q4HPRN PRN (Reason: mild pain/temp>100F)
ketoconazole 2 % Shampoo
1 applic TOPICAL MOTH
ursodiol 300 mg Capsule
300 mg PO BID
Fleet Enema 19-7 gram/118 mL Enema
118 ml AK DAILYPRN PRN (Reason: if no bm aftr dulcolax)
fluticasone propion-salmeterol [Advair Diskus] 100-50 mcg/dose Blister With Device
1 inh INHALATION R QPM
Incruse Ellipta 62.5 mcg/actuation Blister With Device
1 inh INHALATION R DAILY
famotidine [Pepcid] 20 mg Tablet
20 mg PO DAILY
calcium carbonate 500 mg calcium (1,250 mg) Tablet,Chewable
1,000 mg PO Q8HPRN PRN (Reason: reflux/indigestion)
magnesium glycinate 100 mg Tablet
100 mg PO HS
rifaximin 550 mg Tablet
550 mg PO BID
hydrocodone-acetaminophen 5-325 mg tablet
1 tab PO C21HRLX PRN (Reason: moderate to severe pain)
hydrocortisone 1 % Cream
1 applic TOPICAL BID
Rx Instructions:
L hip
ipratropium-albuterol 0.5 mg-3 mg(2.5 mg base)/3 mL solution for nebulization
3 ml inhalation R Q6HPRN PRN (Reason: shortness of breath or wheezing)
Discharge Orders:
Discharge Patient (As Directed); Ordered 03/11/24
Ordered By: William Braun
Discharge Date and Time
Print Language: GREEK
[2024-03-11 14:57] VITALS: BP 120/60
== END 2024-03-11 17:47 | DRG 190 ==
LOC: 4 WEST ACU 19:13
PROVIDERS: ADMITTING PHYSICIAN Hospitalist; ATTENDING PHYSICIAN Family Medicine; EMERGENCY PHYSICIAN Emergency Medicine; FAMILY PHYSICIAN Internal Medicine
PROC: 5A09357 Assistance with Respiratory Ventilation, Less than 24 Consecutive Hours, Continuous Positive Airway Pressure (ICD-10-PCS; 2024-03-07)
DX: J44.1 Chronic obstructive pulmonary disease with (acute) exacerbation (principal); J96.21 Acute and chronic respiratory failure with hypoxia; I5A Non-ischemic myocardial injury (non-traumatic); F11.20 Opioid dependence, uncomplicated; I85.10 Secondary esophageal varices without bleeding; J44.0 Chronic obstructive pulmonary disease with (acute) lower respiratory infection; D63.8 Anemia in other chronic diseases classified elsewhere; D72.819 Decreased white blood cell count, unspecified; D69.6 Thrombocytopenia, unspecified; F32.A Depression, unspecified; F41.9 Anxiety disorder, unspecified; G89.4 Chronic pain syndrome; K59.00 Constipation, unspecified; Z11.52 Encounter for screening for COVID-19; K21.9 Gastro-esophageal reflux disease without esophagitis; R13.10 Dysphagia, unspecified; K76.82 Hepatic encephalopathy; Z96.643 Presence of artificial hip joint, bilateral; Z87.891 Personal history of nicotine dependence; Z79.51 Long term (current) use of inhaled steroids; K70.30 Alcoholic cirrhosis of liver without ascites
CPT/HCPCS: 71045; 80048; 80053; 83605; 83735; 83880; 84484; 85025; 85027; 87040; 87070; 87205; 87449; 87502; 87811; 87899; 93005; 93306; 94640; 94660; 96374; 97163; 97167; 99291

== ENCOUNTER 2024-03-20 11:54 | Inpatient (IN) | payer MEDICARE, OTHER, SELFPAY ==
[2024-03-19] VITALS (13 sets, daily range): BP systolic 101–125; BP diastolic 47–59; BMI 18.2
[2024-03-19 12:59] LABS: % Basophils 0.2 % (0-2); % Eosinophils 0.3 % (0-6); % Immature Granulocytes 0.6 % (0-0.5); % Neutrophils 78.9 % (42.2-75.2); Absolute Lymphocytes 0.8 10^3/uL (1.2-3.4); Absolute Monocytes 0.5 10^3/uL (0.1-0.6); Absolute Neutrophils 5.1 10^3/uL (1.4-6.5); Hematocrit 39.3 % (37.0-47.0); Hemoglobin 12.4 g/dL (12.0-16.0); Mean Corp Hgb Conc. 31.6 g/dL (33.0-37.0); Mean Corpuscular Volume 85.4 fL (81.0-99.0); Mean Platelet Volume 10.9 fL (7.4-10.4); Nucleated Red Blood Cells % 0 %; Platelet Count 114 10^3/uL (130-400); Red Cell Dist. Width 16.4 % (11.5-14.5); White Blood Cell Count 6.5 10^3/uL (4.8-10.8)
[2024-03-19 13:00] LABS: Urine Albumin Negative (Neg - Trace); Urine Bilirubin 1+ (Negative); Urine Character Clear (Clear); Urine Color Yellow; Urine Glucose Negative (Negative); Urine Ketone Negative (Negative); Urine Leukocyte Negative (Negative); Urine Nitrite Negative (Negative); Urine Occult Blood Negative (Negative); Urine Urobilinogen Negative (Neg - 1+)
[2024-03-19 13:11] LABS: ALT (SGPT) 28 U/L (0-35); AST (SGOT) 34 U/L (14-36); Alkaline Phosphatase 110 U/L (38-126); Blood Urea Nitrogen 40 mg/dl (7-17); Calcium 8.2 mg/dl (8.4-10.2); Carbon Dioxide 28 mmol/L (22-30); Chloride 104 mmol/L (98-107); Glucose 84 mg/dl (70-99); Potassium 3.8 mmol/L (3.5-5.1); Sodium 140 mmol/L (135-145); Total Bilirubin 1.1 mg/dl (0.2-1.3); Total Protein 5.7 g/dl (6.3-8.2); eGFR > 60.00
[2024-03-19 14:45] LABS: Ammonia 32 umol/L (9-30)
[2024-03-19 15:20] LABS: Venous Blood Gas B.E. 2.7 mmol/L (-4 to +4); Venous Blood Gas HCO3 28.9 mmol/L (22-27); Venous Blood Gas pCO2 50 mmHg (35-48); Venous Blood Gas pH 7.37 (7.32-7.43); Venous Blood Gas pO2 76 mmHg (30-50)
--- NOTE | 2024-03-19 15:51 | ED.GENMED ---
History of Present Illness
General
Chief Complaint: Change in Mental Status
Source: records, family and ambulance crew
Time Seen by Provider: 03/19/24 14:14
History of Present Illness
History of Present Illness:
69-year-old female arrives by EMS. EMS reports patient was reportedly less active than usual. She reportedly typically drinks and eats but today was not eaten anything. Patient really cannot answer questions on my examination. There is no
reported fevers or vomiting. No reported injury
Daughter later arrives and states that the patient is not her normal self. There is been no new medications. She has been like this in the past when she had an hepatic encephalopathy but today's ammonia is normal.
Past History
Past History
ED Past Medical History: Arrthythmia (Atrial fibrillation), COPD, Other (cirrhosis of liver) and Other (neuropathy)
ED Past Surgical History: Orthopedic
Social History
Tobacco: Former smoker
Alcohol: None
Drug: None
Living: snf
Phy Exam
Physical Exam
Physical Exam:
CONSTITUTIONAL Patient awake but slow to respond. Vital signs reviewed.
HEAD atraumatic, normocephalic.
EYES eyelids normal to inspection, Extraocular muscles intact, Conjunctiva normal, Sclera normal.
NECK normal range of motion, Trachea midline, no jugular venous distention.
RESPIRATORY CHEST No respiratory distress noted, Chest expansion equal, Bilateral breath sounds clear.
CARDIOVASCULAR regular rate and rhythm, Heart sounds normal.
ABDOMEN abdomen nontender, Bowel sounds normal. No distention.
BACK normal inspection, no obvious deformities
UPPER EXTREMITY range of motion normal, Motor strength normal, no cyanosis, no edema.
LOWER EXTREMITY range of motion normal, Motor strength normal, no cyanosis, no edema.
NEURO moves all extremities. Cranial nerves appear to be intact. Poorly follows direct neurologic assessment commands. Somewhat somnolent
Course
Orders/Labs/Results
Orders:
Orders
03/19/24
Electrocardiogram (*1) Stat
Reason for Study: Chest Pain
Comment: DONE
03/19/24 12:47
CBC/With Diff [Complete Blood Count/With Diff] Urgent
Comprehensive Metabolic Panel Urgent
Urinalysis Reflex To Culture Urgent
Date Specimen was Collected: 03/19/24
Time Specimen was Collected: 12:40
03/19/24 14:28
Ammonia Urgent
03/19/24 14:44
CT Head W/o Iv Contrast Urgent
Comment:
Reason For Exam: change in MS
03/19/24 15:10
Venous Blood Gas Urgent
%Oxygen/Room Air: 6L
03/19/24 19:51
0.9% Sodium Chloride 500 ml [Nss] 500 ml IV BOLUS
03/19/24 21:15
CXR2 [CR Chest - 2 Views ] Urgent
Comment:
Reason For Exam: Hypoxemia, Altered Mental Status
03/19/24 21:24
Admit/Transfer Patient As Directed
Co-Sign Provider:
Level of Care: Observation services
Assign to:: Telemetry
Physician / Group: Kwadwo Freire
Diagnosis: acute TME
Reason for Telemetry: Arrhythmia
Date to Stop Telemetry: 03/22/24
Time to Stop Telemetry: 11:00
03/19/24 21:25
PRN Pain Medication Management As Directed
May give lesser potent ordered pain med per pt: Yes
preference::
Protocol:: Medication orders for pain may be administered in a
manner that supports deferring to patient preference
when the pt is:
- Requesting an ordered lesser potent pain medication.
Least to most potent pain medications are defined
as: acetaminophen < NSAID < tramadol < opioids
(morphine, oxycodone, hydromorphone).
- Requesting a lesser dose of the same medication IF
ORDERED.
- Requesting a less intrusive route of administration
if both routes are prescribed by the provider (PO <
IV).
03/19/24 21:27
Code Status As Directed
Resuscitation Status: Full Code
03/22/24 11:00
DC Protocol for Telemetry ONCE
Abnormal Lab Results
03/19/24 03/19/24 03/19/24
12:47 14:28 15:10
MCHC 31.6 L g/dL
(33.0-37.0)
RDW 16.4 H %
(11.5-14.5)
Plt Count 114 L 10^3/uL
(130-400)
MPV 10.9 H fL
(7.4-10.4)
Absolute Lymphs (auto) 0.8 L 10^3/uL
(1.2-3.4)
Immature Gran % 0.6 H %
(0-0.5)
Neutrophils % 78.9 H %
(42.2-75.2)
Lymphocytes % 13.0 L %
(20.5-51.1)
VBG pCO2 50 H mmHg
(35-48)
VBG pO2 76 H mmHg
(30-50)
VBG HCO3 28.9 H mmol/L
(22-27)
BUN 40 H mg/dl
(7-17)
Calcium 8.2 L mg/dl
(8.4-10.2)
Ammonia 32 H umol/L
(9-30)
Total Protein 5.7 L g/dl
(6.3-8.2)
Albumin 3.0 L g/dl
(3.5-5.0)
Urine Bilirubin 1+ A
(Negative)
03/19/24 12:47
03/19/24 12:47
Vital Signs
Initial and Last Documented VS:
Initial Vital Signs
Temp Pulse Resp
98.2 F 83 18
03/19/24 12:21 03/19/24 12:21 03/19/24 12:21
Last Documented Vital Signs
Temp Pulse Resp BP Pulse Ox
98.2 F 73 12 108/51 93
03/19/24 12:21 03/19/24 21:15 03/19/24 21:15 03/19/24 21:00 03/19/24 19:00
MDM/Problems Addressed
Differential Diagnosis Includes:
UTI, sepsis, hepatic encephalopathy renal failure, medication reaction, intracranial hemorrhage, dehydration, electrolyte imbalance
MDM/Problems Addressed:
Change in mental status
*Pulse Oximetry
Patient hypoxic: no
*EKG
Interpreted by ED Provider?: Yes
Interpretation: normal
Rate: normal
Rhythm: sinus
[place]: normal axis
Interval: normal interval
Ischemia: no ischemia
*Gambling Box Person Interpretation
Rate: normal
Interpretation: normal
Rhythm: sinus
*Critical Care Note
Total Time (30-74mins, 75-104mins- exclusive of procedures): Not Applicable
Data Reviewed
Source: patient and family
Prescriptions/Medications Considered But Not Given:
Considered antibiotics but no clear source of bacterial infection. EKG normal. CT negative
Patient Management
Discussion with other providers: Hospitalist
Escalation/DeEscalation of care consider admission/obs:
Unclear source of change in mental status. No overt evidence of infection. Ammonia level okay. pCO2 okay. Admit for close monitoring. Could question medication effect if she was given the wrong medication but no new medicines given. In
addition, no changes over the time she is here
ED Attending Note
-
Portions of this chart may have been created with voice recognition software.� Occasional wrong word or��sound alike� substitutions may have occurred due to the inherent limitations of voice recognition software.
Discharge Plan
Departure
Patient Disposition: Admit
Date of Disposition: 03/19/24
Time of Disposition: 19:52
Admit to: Telemetry
Presentation/result/management discussed w/ accepting MD/DO: Hospitalist
Patient with high blood pressure during this ER visit?: No
Discharge Problem:
Acute alteration in mental status
Interventions
Interventions:
*Risk Screen - Suicide Last Done: 03/19/24 13:34
*General Assessment Last Done: 03/19/24 12:21
*Neglect/Abuse Screening Last Done: 03/19/24 13:34
ED- Fall Risk Assessment Last Done: 03/19/24 14:11
*ED COVID-19 Vaccine History Last Done: 03/19/24 13:34
ED- Neurological Assessment Last Done: 03/19/24 13:34
ED- Cardiac Assessment Last Done: 03/19/24 14:05
ED Swallowing Screen Last Done: 03/19/24 13:37
--- NOTE | 2024-03-19 20:11 | HPS.HSE ---
Addendum entered and electronically signed by Kwadwo Freire DO 03/19/24 21:48:
Patient is a 69y F with PMH significant for cirrhosis with varices and encephalopathy and COPD with recent admission for exacerbation who presents to ED for evaluation of altered mental status. History obtained from [place] records which note that
patient has an episode of emesis this afternoon followed by apparent confusion. She was transported to the ED for further evaluation. In the ED, patient is somewhat lethargic. She will open eyes and responds - but says only one word / repetitive
/ nonsensical answers. Work-up in the ED thus far is largely unremarkable. Afebrile, normal lytes, normal VBG, ammonia extremely minimally elevated at 32.
Ass:
Acute TME
Cirrhosis with Chronic Encephalopathy and Varices
COPD without Acute Exacerbation
Chronic Hypoxemic Respiratory Insufficiency
Chronic Pain / Chronic Opioid Dependence
Plan:
Admit for further evaluation and treatment.
Unclear etiology of mental status change.
? aspiration event as symptoms preceded by episode of emesis.
CXR ordered. Patient is afebrile. No evident cough. Baseline oxygenation.
? acute on chronic hepatic encephalopathy - though ammonia level is not markedly elevated.
Continue lactulose TID, Xifaxan, etc - follow for clinical changes.
Check US to assess for ascites / possible SBP - though history indicates no ascites has been present with her cirrhosis.
Hold sedating meds / narcotics acutely.
MRI in AM for given apparent expressive aphasia. CT in the ED was unremarkable.
Neuro eval if any significant abnormality noted.
Original Note:
Family Physician
-
Family Physician: INTERVIEWE UNKNOWN - PT NOT
Chief Complaint
-
change in mental status
History of Present Illness
Patient is a 69-year-old female with past medical history significant for cirrhosis of liver without ascites, hepatic encephalopathy, COPD, depression, anxiety, and GERD who presented to [facility] ED for evaluation of reported acute mental status
change at [facility]. Patient is generally AAox3-4 able to hold conversation and make needs know. She had episode of nausea and vomiting as reported by facility staff and acute change. Patient daughter at bedside reported to ED staff that the
plan was to take patient out of facility and home for game as she is normally AAOx4 with no issues. No reported fever, chills, cough, shortness of breath, chest pain, constipation, diarrhea or urinary symptoms.
Medical History
Past Medical History
Past Medical History: Reports Other
Additional Past Medical History:
cirrhosis of liver without ascites
hepatic encephalopathy
COPD
depression
anxiety
GERD
esophageal varices
Past Surgical History: Reports Other
Additional Past Surgical History:
bilateral hip
BRTO
back
Social History
Unable to obtain full social history at this time due to: Dementia
Family History
Family History: Unable to Obtain
Allergies / Home Medications
Allergies reflects when Allergies were last updated in [facility].
Home Medications with original date entered in [facility]
Allergy/Medication List:
Allergies
Allergy/AdvReac Type Severity Reaction Status Date / Time
No Known Allergies Allergy Verified 03/19/24 12:28
Home Medications
furosemide 20 mg tablet 20 mg PO DAILY Fluid Retention/Swelling 01/29/23
lactulose 10 gram/15 mL oral solution 15 ml PO TID Liver Issues 01/29/23
bisacodyl 10 mg rectal suppository (Dulcolax (bisacodyl)) 10 mg GA DAILYPRN PRN if MOM ineffective after 24 hrs 05/27/23
gabapentin 400 mg capsule 400 mg PO TID Nerve pain 05/27/23
magnesium hydroxide 400 mg/5 mL oral suspension (Milk of Magnesia) 30 ml PO [id number] PRN if no BM in 3 days 05/27/23
melatonin 5 mg tablet 5 mg PO HS Sleep 05/27/23
polyethylene glycol 3350 17 gram oral powder packet (Miralax) 17 g PO DAILYPRN PRN constipation 05/27/23
sertraline 25 mg tablet 25 mg PO DAILY Mental Health/Anxiety 05/27/23
spironolactone 25 mg tablet 25 mg PO DAILY Fluid Retention/Swelling 05/27/23
lorazepam 0.5 mg tablet 0.5 mg PO [id number] PRN anxiety #10 tabs 05/31/23
acetaminophen 325 mg tablet (Tylenol) 650 mg PO Q4HPRN PRN mild pain/temp>100F 08/14/23
fluticasone 100 mcg-salmeterol 50 mcg/dose blistr powdr for inhalation (Advair Diskus) 1 inh inhalation R QPM Lung/Breathing Issues 08/14/23
sodium phosphates 19 gram-7 gram/118 mL enema (Fleet Enema) 118 ml GA DAILYPRN PRN if no bm aftr dulcolax 08/14/23
umeclidinium 62.5 mcg/actuation blister powder for inhalation (Incruse Ellipta) 1 inh inhalation R DAILY Lung/Breathing Issues 08/14/23
ursodiol 300 mg capsule 300 mg PO BID gallstones 08/14/23
calcium carbonate 1,000 mg PO Q8HPRN PRN reflux/indigestion 01/13/24
famotidine 20 mg tablet (Pepcid) 20 mg PO DAILY Gastrointestinal Issue 01/13/24
hydrocodone 5 mg-acetaminophen 325 mg tablet 1 tab PO [id number] PRN moderate to severe pain 01/13/24
magnesium glycinate 100 mg (as glycinate) tablet 100 mg PO HS 01/13/24
rifaximin 550 mg tablet 550 mg PO BID 01/13/24
hydrocortisone 1 % topical cream 1 applic topical BID Skin Issues 03/07/24
ipratropium 0.5 mg-albuterol 3 mg (2.5 mg base)/3 mL nebulization soln 3 ml inhalation R Q6HPRN PRN shortness of breath or wheezing 03/07/24
nicotine 14 mg/24 hr daily transdermal patch 14 mg transdermal DAILY #30 ea 03/11/24
guaifenesin 600 mg tablet, extended release 12 hr 1,200 mg PO BID 03/19/24
Review of Systems
-
Unable to obtain full review of systems at this time due to: Dementia
Physical Exam
Vital Signs
Vital Signs
Temp Pulse Resp BP Pulse Ox
98.2 F 60 14 110/48 91
03/19/24 12:21 03/19/24 18:00 03/19/24 17:15 03/19/24 18:00 03/19/24 18:00
Physical Exam
General: Well Developed, No Apparent Distress, Comfortable and Cachectic
HEENT: NormoCephalic, Moist mucous membranes, Atraumatic, [place] Conjunctivae, Nose Appears Normal and Ears Appear Normal
Respiratory: Clear and Non Labored Respirations
Cardiac: S1/S2 and Regular Rhythm; No Murmur, Rub or Gallop
Breast: Deferred by me
GI: Soft, Non Tender, Non Distended and Normal Bowel Sounds; No Organomegaly
Rectal: Deferred by Provider
Genito-urinary: Deferred by me
Musculoskeletal: No Clubbing, No Cyanosis and No Edema
Skin: Warm and IV/Catheter Site; No Rash
Neuro: Sedated
Psych: Calm
Laboratory Results
-
03/19/24 12:47
03/19/24 12:47
Laboratory Results
Total Bilirubin 1.1 mg/dl (0.2-1.3) 03/19/24 12:47
AST 34 U/L (14-36) 03/19/24 12:47
ALT 28 U/L (0-35) 03/19/24 12:47
Alkaline Phosphatase 110 U/L (38-126) 03/19/24 12:47
Data Reviewed
-
CT Scan: Report Reviewed by me (Head: No acute intracranial abnormality noted. Mild atrophy. Stable Minimal nonacute left maxillary sinusitis. New)
Medical Tests (Nuc Med, Echo, EKG etc): Report Reviewed by me (EKG: NORMAL SINUS RHYTHM)
Lab Data: Labs Reviewed by me (Ammonia 32;)
Impression/Plan
-
IMPRESSION/PLAN:
#acute TME
#change in mental status
Ammonia 32
UA: negative for UTI
Head CT: No acute intracranial abnormality noted.
Mild atrophy. Stable
Minimal nonacute left maxillary sinusitis. New
- admit to telemetry
- CXR pending
- MRI in morning
- consider consulting neurology
- consult PT/OT
- consult case management
#cirrhosis of liver without ascites
#hepatic encephalopathy
Ammonia 32
- continue lactulose, rifaximin
#COPD
- continue Advair, guaifenesin, Ellipta, DuoNeb PRN
#depression
#anxiety
- continue lorazepam, sertraline
#GERD
- continue famotidine
#edema
- continue furosemide and spironolactone
#esophageal varices
Code status: Full code
DVT Prophylaxis: SCDs
[2024-03-19] MEDS: NSS 500 IV (20:20)
[2024-03-20] VITALS (8 sets, daily range): BP systolic 100–135; BP diastolic 44–61; PULSE 56; O2SAT 93; BMI 18.2
--- NOTE | 2024-03-20 | PTCARENOTE ---
pt is oriented to self, confused, drowsy. attempted to give HS meds - pt spit them out. informed MEDICINE MAN Beth Nguyen - given lactulose enema x1 w/ +eff. pt on bed alarm.
[2024-03-20] MEDS: DUPHALAC/CHRONULAC PO ×2 (00:25→10:25)
[2024-03-20] MEDS: MAGNESIUM OXIDE PO (00:25)
[2024-03-20] MEDS: LACTULOSE ENEMA 300 ML RECTAL (01:31)
[2024-03-20] MEDS: ADVAIR HFA 45/21 MCG INHALER 2 PUFF INH ×2 (07:11→21:09)
[2024-03-20] MEDS: SPIRIVA RESPIMAT 2.5 MCG 2 PUFF INH (07:12)
[2024-03-20] MEDS: XIFAXAN 550 MG PO ×2 (07:58→20:46)
[2024-03-20] MEDS: MUCINEX 1200 MG PO ×2 (07:58→20:46)
[2024-03-20] MEDS: NICODERM TRANSDERMAL 14 MG TRANSDERM (07:59)
[2024-03-20] MEDS: ACTIGALL 300 MG PO ×2 (07:59→20:46)
[2024-03-20] MEDS: PEPCID 20 MG PO (07:59)
[2024-03-20] MEDS: ALDACTONE 25 MG PO (07:59)
[2024-03-20] MEDS: LASIX 20 MG PO (07:59)
[2024-03-20] MEDS: ZOLOFT 25 MG PO (07:59)
[2024-03-20 08:11] LABS: Hematocrit 37.1 % (37.0-47.0); Hemoglobin 11.8 g/dL (12.0-16.0); Mean Corp Hgb Conc. 31.8 g/dL (33.0-37.0); Mean Corpuscular Hgb 26.8 pg (27.0-31.0); Mean Corpuscular Volume 84.3 fL (81.0-99.0); Platelet Count 119 10^3/uL (130-400); Red Cell Dist. Width 16.6 % (11.5-14.5); White Blood Cell Count 6.8 10^3/uL (4.8-10.8)
[2024-03-20 08:27] LABS: Ammonia 21 umol/L (9-30)
[2024-03-20 08:53] LABS: ALT (SGPT) 24 U/L (0-35); AST (SGOT) 30 U/L (14-36); Albumin 2.8 g/dl (3.5-5.0); Alkaline Phosphatase 104 U/L (38-126); Blood Urea Nitrogen 39 mg/dl (7-17); Calcium 8.4 mg/dl (8.4-10.2); Carbon Dioxide 22 mmol/L (22-30); Chloride 112 mmol/L (98-107); Estimated Creatinine Clearance 54 ml/min; Glucose 77 mg/dl (70-99); Potassium 3.7 mmol/L (3.5-5.1); Sodium 145 mmol/L (135-145); Total Protein 5.4 g/dl (6.3-8.2); eGFR > 60.00
[2024-03-20 09:39] LABS: Procalcitonin 0.64 ng/ml (0.0-0.25)
--- NOTE | 2024-03-20 10:29 | PTCARENOTE ---
received in AM. confused, able to answer yes/no questions. took PO meds crushed in . refused lactulose. aware. in for abd US this AM. daughter updated over the phone
--- NOTE | 2024-03-20 11:50 | CM ---
CM spoke with nursing at [facility]
Pt is a LT resident with a MA bed-hold
Pt is typically AxO at baseline
She requires 1 assist for bed mobility, set up for transfers and sup for ambulation with use of a WW
Of late, pt has been self propelling and utilizing a W/C for movement around facility
Pt is on 2L O2 at baseline, no bipap or cpap at SNF
Good skin integrity and no wounds
PCP- Douglas Conner
Rx-Nicolás Rockwell
Call with dtr to introduce self and explain role
LILIA verbally reviewed- copy left bedside for her visit later today
Pt admitted to from 03/07-03/11
Required BLS transport on dc
Return SNF referral sent via [facility]
Discharge Disposotion- return to [facility]
Phone- [phone] Fax- [phone]
--- NOTE | 2024-03-20 12:28 | W.PN.HOSP.TC ---
Today's Communication/Plan
-
Monitor vital signs see plan
MRI pending
Check abdomen x-ray
Start antibiotics for pneumonia
Granddaughter updated at bedside
Assessment / Plan
Assessment / Plan
General: Well Developed, No Apparent Distress, Comfortable and Cachectic
HEENT: NormoCephalic, Moist mucous membranes, Atraumatic, [place] Conjunctivae
Respiratory: Clear and Non Labored Respirations
Cardiac: S1/S2 and Regular Rhythm; No Murmur
GI: Soft, Non Tender, Non Distended and Normal Bowel Sounds
Musculoskeletal: No Edema
Neuro: AAOX2
Psych: Calm
Change in mental status likely TME secondary to possible pneumonia
Acute on chronic hypoxic respiratory failure on 3 L chronically. Was initially on 6 L however now at baseline 3 L
Ammonia 32
UA: negative for UTI
Head CT: No acute intracranial abnormality noted.
Mild atrophy. Stable
Minimal nonacute left maxillary sinusitis. New
- admit to telemetry
- CXR with pneumonia. Pro-Oswaldo elevated. Start ceftriaxone and doxycycline
- MRI pending
- consider consulting neurology if mental status does not improve
#cirrhosis of liver without ascites
#hepatic encephalopathy
Abdominal ultrasound with minimal ascites
Continue to monitor ammonia
- continue lactulose, rifaximin
check abdomen x-ray; had episode of emesis on admission
#COPD
Does not appear to be in exacerbation
- continue Advair, guaifenesin, Ellipta, DuoNeb PRN
#depression
#anxiety
- continue lorazepam, sertraline
#GERD
- continue famotidine
#edema
- continue furosemide and spironolactone
#esophageal varices
Chronic pain syndrome with narcotic dependence:
-Hold sedating meds for now
Code status: Full code
DVT Prophylaxis: SCDs, lovenox
I spent a total of 52 minutes with the patient or on the floor. More than 50% of this time involved counseling and coordination of care.
Anticipated Discharge: 24 - 48 hours
Subjective/Interval History
-
Date of Service: March 20, 2024
Denies chest pain, shortness of breath
Objective Data
-
Labs:
Laboratory Results
03/20/24
07:45
WBC 6.8
Hgb 11.8 L
Hct 37.1
Plt Count 119 L
Sodium 145
Potassium 3.7
Chloride 112 H
Carbon Dioxide 22
BUN 39 H
Creatinine 0.7
Glucose 77
Calcium 8.4
Total Bilirubin 1.0
AST 30
ALT 24
Alkaline Phosphatase 104
Vital Signs:
Vital Signs
Temp Pulse Resp BP Pulse Ox
97.6 F 65 18 100/48 94
03/20/24 07:47 03/20/24 12:07 03/20/24 12:07 03/20/24 12:07 03/20/24 12:07
[2024-03-20] MEDS: ROCEPHIN 1000 MG IV (13:02)
[2024-03-20] MEDS: STERILE WATER FOR INJECTION 10 ML IV (13:02)
[2024-03-20] MEDS: VIBRAMYCIN 100 MG PO ×2 (13:03→20:46)
[2024-03-20] MEDS: ZOFRAN 4 MG IV (15:04)
[2024-03-20] MEDS: DUPHALAC/CHRONULAC 15 GRAMS PO ×2 (15:04→20:46)
[2024-03-20] MEDS: LOVENOX 30 MG SC (17:35)
[2024-03-20] MEDS: MAGNESIUM OXIDE 250 MG PO (20:46)
[2024-03-21] VITALS (7 sets, daily range): BP systolic 91–112; BP diastolic 44–53; O2SAT 93; BMI 18.3
[2024-03-21] MEDS: SPIRIVA RESPIMAT 2.5 MCG 2 PUFF INH (06:19)
[2024-03-21] MEDS: ADVAIR HFA 45/21 MCG INHALER 2 PUFF INH ×2 (06:19→19:28)
[2024-03-21] MEDS: ZOLOFT 25 MG PO (07:28)
[2024-03-21] MEDS: ALDACTONE 25 MG PO (07:28)
[2024-03-21] MEDS: LASIX 20 MG PO (07:28)
[2024-03-21] MEDS: ACTIGALL 300 MG PO ×2 (07:28→20:26)
[2024-03-21] MEDS: PEPCID 20 MG PO (07:28)
[2024-03-21] MEDS: DUPHALAC/CHRONULAC 15 GRAMS PO ×3 (07:28→21:06)
[2024-03-21] MEDS: XIFAXAN 550 MG PO ×2 (07:28→20:27)
[2024-03-21] MEDS: VIBRAMYCIN 100 MG PO ×2 (07:28→20:27)
[2024-03-21] MEDS: MUCINEX 1200 MG PO ×2 (07:28→20:26)
[2024-03-21] MEDS: NICODERM TRANSDERMAL 14 MG TRANSDERM (07:28)
[2024-03-21 08:27] LABS: % Basophils 0.3 % (0-2); % Eosinophils 1.2 % (0-6); % Immature Granulocytes 0.3 % (0-0.5); % Lymphocytes 18.3 % (20.5-51.1); % Neutrophils 72.9 % (42.2-75.2); Absolute Eosinophils 0.1 10^3/uL (0-0.7); Absolute Lymphocytes 1.1 10^3/uL (1.2-3.4); Absolute Monocytes 0.4 10^3/uL (0.1-0.6); Absolute Neutrophils 4.2 10^3/uL (1.4-6.5); Hematocrit 35.8 % (37.0-47.0); Hemoglobin 11.4 g/dL (12.0-16.0); Mean Corp Hgb Conc. 31.8 g/dL (33.0-37.0); Mean Corpuscular Hgb 27.3 pg (27.0-31.0); Mean Corpuscular Volume 85.9 fL (81.0-99.0); Mean Platelet Volume 11.4 fL (7.4-10.4); Nucleated Red Blood Cells % 0 %; Platelet Count 110 10^3/uL (130-400); Red Blood Cell Count 4.17 10^6/uL (4.20-5.40); Red Cell Dist. Width 16.2 % (11.5-14.5); White Blood Cell Count 5.7 10^3/uL (4.8-10.8)
[2024-03-21 08:33] LABS: Ammonia 33 umol/L (9-30)
[2024-03-21 08:42] LABS: ALT (SGPT) 21 U/L (0-35); AST (SGOT) 26 U/L (14-36); Albumin 2.7 g/dl (3.5-5.0); Alkaline Phosphatase 121 U/L (38-126); Blood Urea Nitrogen 25 mg/dl (7-17); Carbon Dioxide 24 mmol/L (22-30); Chloride 106 mmol/L (98-107); Estimated Creatinine Clearance 48 ml/min; Glucose 85 mg/dl (70-99); Potassium 3.3 mmol/L (3.5-5.1); Sodium 138 mmol/L (135-145); Total Bilirubin 0.8 mg/dl (0.2-1.3); Total Protein 5.4 g/dl (6.3-8.2); eGFR > 60.00
--- NOTE | 2024-03-21 11:21 | CM ---
Patient seen bedside with daughter.
PT/OT recommending skilled rehab (medicare)
Plan: back to [facility] when stable.
Patient will need ambulance transport.
[facility]
report# [phone]
--- NOTE | 2024-03-21 11:58 | W.PN.HOSP.TC ---
Today's Communication/Plan
-
Monitor vital signs
see plan
Continue to monitor mental status
Continue with antibiotics
Replete potassium
Laxatives
Called daughter, left voicemail
Assessment / Plan
Assessment / Plan
General: Well Developed, No Apparent Distress, Comfortable and Cachectic
HEENT: NormoCephalic, Moist mucous membranes, Atraumatic, [place] Conjunctivae
Respiratory: Clear and Non Labored Respirations
Cardiac: S1/S2 and Regular Rhythm; No Murmur
GI: Soft, Non Tender, Non Distended and Normal Bowel Sounds
Musculoskeletal: No Edema
Neuro: AAOX2
Psych: Calm
Change in mental status likely TME secondary to possible pneumonia
Acute on chronic hypoxic respiratory failure on 3 L chronically. Was initially on 6 L however now at baseline 3 L
Ammonia 32
UA: negative for UTI
Head CT: No acute intracranial abnormality noted.
Mild atrophy. Stable
Minimal nonacute left maxillary sinusitis. New
- admit to telemetry
- CXR with pneumonia. Pro-Oswaldo elevated. Start ceftriaxone and doxycycline
- MRI without acute CVA. Did show moderate diffuse cerebral and cerebellar volume loss. Also showed possibility of mild multilevel cervical spinal cord compression secondary to multilevel discogenic degenerative disease. Patient at this time
denies any upper extremity sensory loss or weakness.
- consider consulting neurology if mental status does not improve
#cirrhosis of liver without ascites
#hepatic encephalopathy
splenomegaly
Abdominal ultrasound with minimal ascites
Continue to monitor ammonia
- continue lactulose, rifaximin
Abdominal x-ray consistent with constipation. Continue Dulcolax suppository, enema as needed
Monitor ammonia
#COPD
Does not appear to be in exacerbation
- continue Advair, guaifenesin, Ellipta, DuoNeb PRN
Hypokalemia
Replete
Chronic thrombocytopenia likely secondary to cirrhosis
Monitor
#depression
#anxiety
- continue lorazepam, sertraline
#GERD
- continue famotidine
#edema
- continue furosemide and spironolactone
#esophageal varices
Chronic pain syndrome with narcotic dependence:
-Hold sedating meds for now
Code status: Full code
DVT Prophylaxis: SCDs, lovenox
I spent a total of 51 minutes with the patient or on the floor. More than 50% of this time involved counseling and coordination of care.
Anticipated Discharge: 24 - 48 hours
Subjective/Interval History
-
Date of Service: March 21, 2024
denies pain
Objective Data
-
Labs:
Laboratory Results
03/21/24
07:24
WBC 5.7
Hgb 11.4 L
Hct 35.8 L
Plt Count 110 L
Sodium 138
Potassium 3.3 L
Chloride 106
Carbon Dioxide 24
BUN 25 H
Creatinine 0.8
Glucose 85
Calcium 8.0 L
Total Bilirubin 0.8
AST 26
ALT 21
Alkaline Phosphatase 121
Vital Signs:
Vital Signs
Temp Pulse Resp BP Pulse Ox
98.0 F 78 16 110/53 93
03/21/24 11:28 03/21/24 11:28 03/21/24 11:28 03/21/24 11:28 03/21/24 11:28
I&O
03/20/24 03/21/24 03/22/24
06:59 06:59 06:59
Intake Total 480 / 480
Balance 480 / 480
[2024-03-21] MEDS: STERILE WATER FOR INJECTION 10 ML IV (12:56)
[2024-03-21] MEDS: ROCEPHIN 1000 MG IV (12:56)
[2024-03-21] MEDS: DULCOLAX 10 MG RECTAL (12:57)
[2024-03-21] MEDS: LOVENOX 30 MG SC (17:11)
[2024-03-21] MEDS: MAGNESIUM OXIDE 250 MG PO (20:26)
[2024-03-21] MEDS: KCL 40 MEQ PO (20:27)
[2024-03-22 03:35] VITALS: BP 101/47
[2024-03-22 06:00] VITALS: BMI 18.3
[2024-03-22] MEDS: SPIRIVA RESPIMAT 2.5 MCG 2 PUFF INH (07:48)
[2024-03-22] MEDS: ADVAIR HFA 45/21 MCG INHALER 2 PUFF INH ×2 (07:48→19:32)
[2024-03-22 08:16] VITALS: BP 101/46
[2024-03-22 08:30] LABS: Ammonia 10 umol/L (9-30)
[2024-03-22 08:41] LABS: % Basophils 0.2 % (0-2); % Eosinophils 1.2 % (0-6); % Immature Granulocytes 0.6 % (0-0.5); % Lymphocytes 19.1 % (20.5-51.1); % Monocytes 8.1 % (1.7-9.3); % Neutrophils 70.8 % (42.2-75.2); Absolute Eosinophils 0.1 10^3/uL (0-0.7); Absolute Lymphocytes 0.9 10^3/uL (1.2-3.4); Absolute Monocytes 0.4 10^3/uL (0.1-0.6); Absolute Neutrophils 3.5 10^3/uL (1.4-6.5); Hematocrit 36.7 % (37.0-47.0); Hemoglobin 11.4 g/dL (12.0-16.0); Mean Corp Hgb Conc. 31.1 g/dL (33.0-37.0); Mean Corpuscular Hgb 26.8 pg (27.0-31.0); Mean Corpuscular Volume 86.4 fL (81.0-99.0); Mean Platelet Volume 11.8 fL (7.4-10.4); Nucleated Red Blood Cells % 0 %; Platelet Count 98 10^3/uL (130-400); Red Blood Cell Count 4.25 10^6/uL (4.20-5.40); Red Cell Dist. Width 16.4 % (11.5-14.5); White Blood Cell Count 4.9 10^3/uL (4.8-10.8)
[2024-03-22] MEDS: MUCINEX 1200 MG PO ×2 (09:09→20:44)
[2024-03-22] MEDS: LASIX 20 MG PO (09:10)
[2024-03-22] MEDS: PEPCID 20 MG PO (09:10)
[2024-03-22] MEDS: VIBRAMYCIN 100 MG PO ×2 (09:10→20:44)
[2024-03-22] MEDS: ZOLOFT 25 MG PO (09:10)
[2024-03-22] MEDS: ACTIGALL 300 MG PO ×2 (09:10→20:44)
[2024-03-22] MEDS: DUPHALAC/CHRONULAC 15 GRAMS PO ×3 (09:10→20:45)
[2024-03-22] MEDS: NICODERM TRANSDERMAL 14 MG TRANSDERM (09:10)
[2024-03-22] MEDS: XIFAXAN 550 MG PO ×2 (09:10→20:44)
[2024-03-22] MEDS: ALDACTONE 25 MG PO (09:11)
[2024-03-22 09:17] LABS: ALT (SGPT) 21 U/L (0-35); AST (SGOT) 25 U/L (14-36); Albumin 2.7 g/dl (3.5-5.0); Alkaline Phosphatase 132 U/L (38-126); Blood Urea Nitrogen 18 mg/dl (7-17); Calcium 8.2 mg/dl (8.4-10.2); Carbon Dioxide 24 mmol/L (22-30); Chloride 106 mmol/L (98-107); Estimated Creatinine Clearance 54 ml/min; Glucose 84 mg/dl (70-99); Potassium 4.3 mmol/L (3.5-5.1); Sodium 138 mmol/L (135-145); Total Bilirubin 1.2 mg/dl (0.2-1.3); Total Protein 5.3 g/dl (6.3-8.2); eGFR > 60.00
--- NOTE | 2024-03-22 11:31 | CM ---
Continues IV anbx.
PT/OT recommending skilled rehab.
Plan: back to [facility] when stable.
Patient will need ambulance transport.
[facility]
report# [phone]
[2024-03-22 12:00] VITALS: BP 95/42
--- NOTE | 2024-03-22 12:39 | W.PN.HOSP.TC ---
Today's Communication/Plan
-
Monitor vital signs see plan
Add Tessalon Perles
Continue with antibiotics
If patient continues to improve then possible discharge to [facility] tomorrow
Discussed with daughter over the phone
Assessment / Plan
Assessment / Plan
General: Well Developed, No Apparent Distress, Comfortable and Cachectic
HEENT: NormoCephalic, Moist mucous membranes, Atraumatic, [place] Conjunctivae
Respiratory: Clear and Non Labored Respirations
Cardiac: S1/S2 and Regular Rhythm; No Murmur
GI: Soft, Non Tender, Non Distended and Normal Bowel Sounds
Musculoskeletal: No Edema
Neuro: AAOX2
Psych: Calm
Change in mental status likely TME secondary to possible pneumonia
Mental status slowly improving
Acute on chronic hypoxic respiratory failure on 3 L chronically. Was initially on 6 L however now at baseline 3 L
Ammonia 32 on admission, now improving
UA: negative for UTI
Head CT: No acute intracranial abnormality noted.
Mild atrophy. Stable
Minimal nonacute left maxillary sinusitis. New
- admit to telemetry
- CXR with pneumonia. Pro-Oswaldo elevated. cw ceftriaxone and doxycycline
- MRI without acute CVA. Did show moderate diffuse cerebral and cerebellar volume loss. Also showed possibility of mild multilevel cervical spinal cord compression secondary to multilevel discogenic degenerative disease. Patient at this time
denies any upper extremity sensory loss or weakness.
- consider consulting neurology if mental status does not improve
At Tessalon Perles for cough
#cirrhosis of liver without ascites
#hepatic encephalopathy
splenomegaly
Abdominal ultrasound with minimal ascites
Continue to monitor ammonia
- continue lactulose, rifaximin
Abdominal x-ray consistent with constipation. Continue Dulcolax suppository, enema as needed
Monitor ammonia
#COPD
Does not appear to be in exacerbation
- continue Advair, guaifenesin, Ellipta, DuoNeb PRN
Hypokalemia
improved
Chronic thrombocytopenia likely secondary to cirrhosis
Monitor
#depression
#anxiety
- continue lorazepam, sertraline
#GERD
- continue famotidine
#edema
- continue furosemide and spironolactone
#esophageal varices
Chronic pain syndrome with narcotic dependence:
-Hold sedating meds for now. Discussed with daughter and would avoid narcotics at this time.
Code status: Full code
DVT Prophylaxis: SCDs, lovenox
I spent a total of 51 minutes with the patient or on the floor. More than 50% of this time involved counseling and coordination of care.
Anticipated Discharge: Within 24 hours
Subjective/Interval History
-
Date of Service: March 22, 2024
denies pain
Objective Data
-
Labs:
Laboratory Results
03/22/24
08:02
WBC 4.9
Hgb 11.4 L
Hct 36.7 L
Plt Count 98 L
Sodium 138
Potassium 4.3 D
Chloride 106
Carbon Dioxide 24
BUN 18 H
Creatinine 0.7
Glucose 84
Calcium 8.2 L
Total Bilirubin 1.2
AST 25
ALT 21
Alkaline Phosphatase 132 H
Vital Signs:
Vital Signs
Temp Pulse Resp BP Pulse Ox
98.7 F 71 20 101/46 98
03/22/24 08:16 03/22/24 08:16 03/22/24 08:16 03/22/24 08:16 03/22/24 08:16
I&O
03/21/24 03/22/24 03/23/24
06:59 06:59 06:59
Intake Total 480 / 480 960 / 960
Balance 480 / 480 960 / 960
[2024-03-22] MEDS: STERILE WATER FOR INJECTION 10 ML IV (12:57)
[2024-03-22] MEDS: TESSALON PERLES 200 MG PO ×3 (12:57→20:44)
[2024-03-22] MEDS: ROCEPHIN 1000 MG IV (12:57)
[2024-03-22] MEDS: MAALOX 30 ML PO (14:05)
[2024-03-22 15:00] VITALS: BP 102/46
[2024-03-22] MEDS: LOVENOX 30 MG SC (16:52)
[2024-03-22 19:20] VITALS: BP 109/41
[2024-03-22] MEDS: MAGNESIUM OXIDE 250 MG PO (20:43)
--- NOTE | 2024-03-22 22:57 | PTCARENOTE ---
Pt assessed as per flow sheet. Pt drowsy but interactive. Oriented to person and place. Slightly confused to time. Pt denies pain and SOB. No s/s of distress assessed. Will continue to monitor.
[2024-03-22 23:12] VITALS: BP 112/43
[2024-03-23 03:25] VITALS: BP 96/48
[2024-03-23 05:49] VITALS: BMI 18.1
[2024-03-23 07:35] VITALS: BP 94/45
[2024-03-23] MEDS: ADVAIR HFA 45/21 MCG INHALER 2 PUFF INH (08:14)
[2024-03-23] MEDS: SPIRIVA RESPIMAT 2.5 MCG 2 PUFF INH (08:14)
[2024-03-23 08:20] LABS: ALT (SGPT) 19 U/L (0-35); AST (SGOT) 23 U/L (14-36); Albumin 2.6 g/dl (3.5-5.0); Alkaline Phosphatase 131 U/L (38-126); Blood Urea Nitrogen 14 mg/dl (7-17); Calcium 8.2 mg/dl (8.4-10.2); Carbon Dioxide 22 mmol/L (22-30); Chloride 103 mmol/L (98-107); Estimated Creatinine Clearance 54 ml/min; Glucose 87 mg/dl (70-99); Potassium 4.2 mmol/L (3.5-5.1); Sodium 132 mmol/L (135-145); Total Bilirubin 1.4 mg/dl (0.2-1.3); Total Protein 5.4 g/dl (6.3-8.2); eGFR > 60.00
[2024-03-23 08:39] LABS: % Basophils 0.3 % (0-2); % Eosinophils 1.5 % (0-6); % Immature Granulocytes 0.5 % (0-0.5); % Lymphocytes 18.3 % (20.5-51.1); % Monocytes 9.5 % (1.7-9.3); % Neutrophils 69.9 % (42.2-75.2); Absolute Eosinophils 0.1 10^3/uL (0-0.7); Absolute Lymphocytes 1.1 10^3/uL (1.2-3.4); Absolute Monocytes 0.6 10^3/uL (0.1-0.6); Absolute Neutrophils 4.1 10^3/uL (1.4-6.5); Hematocrit 33.9 % (37.0-47.0); Hemoglobin 11.1 g/dL (12.0-16.0); Mean Corp Hgb Conc. 32.7 g/dL (33.0-37.0); Mean Corpuscular Hgb 27.8 pg (27.0-31.0); Mean Corpuscular Volume 84.8 fL (81.0-99.0); Mean Platelet Volume 12.1 fL (7.4-10.4); Nucleated Red Blood Cells % 0 %; Platelet Count 85 10^3/uL (130-400); Red Cell Dist. Width 16.2 % (11.5-14.5); White Blood Cell Count 5.9 10^3/uL (4.8-10.8)
[2024-03-23] MEDS: VIBRAMYCIN 100 MG PO (08:51)
[2024-03-23] MEDS: ZOLOFT 25 MG PO (08:51)
[2024-03-23] MEDS: XIFAXAN 550 MG PO (08:51)
[2024-03-23] MEDS: MUCINEX 1200 MG PO (08:51)
[2024-03-23] MEDS: DUPHALAC/CHRONULAC 15 GRAMS PO (08:51)
[2024-03-23] MEDS: PEPCID 20 MG PO (08:51)
[2024-03-23] MEDS: TESSALON PERLES 200 MG PO (08:51)
[2024-03-23] MEDS: ACTIGALL 300 MG PO (08:51)
[2024-03-23] MEDS: NICODERM TRANSDERMAL 14 MG TRANSDERM (08:52)
[2024-03-23] MEDS: LASIX PO (09:05)
[2024-03-23] MEDS: ALDACTONE PO (09:05)
[2024-03-23 10:10] VITALS: BP 97/42; PULSE 69; O2SAT 94
--- NOTE | 2024-03-23 11:00 | W.PN.HOSP.TC ---
Today's Communication/Plan
-
Monitor vital signs see plan
Switch to oral antibiotics
Discharge today back to [facility]
Continue lactulose
Called daughter, left voicemail
Time of discharge 38 minutes
Assessment / Plan
Assessment / Plan
General: Well Developed, No Apparent Distress, Comfortable and Cachectic
HEENT: NormoCephalic, Moist mucous membranes, Atraumatic, [place] Conjunctivae
Respiratory: Clear and Non Labored Respirations
Cardiac: S1/S2 and Regular Rhythm; No Murmur
GI: Soft, Non Tender, Non Distended and Normal Bowel Sounds
Musculoskeletal: No Edema
Neuro: AAOX2
Psych: Calm
Change in mental status likely TME secondary to possible pneumonia
Mental status slowly improving
Acute on chronic hypoxic respiratory failure on 3 L chronically. Was initially on 6 L however now at baseline 3 L
Ammonia 32 on admission, now improving
UA: negative for UTI
Head CT: No acute intracranial abnormality noted.
Mild atrophy. Stable
Minimal nonacute left maxillary sinusitis. New
- CXR with pneumonia. Pro-Oswaldo elevated. on ceftriaxone and doxycycline, switch to oral antibiotics
- MRI without acute CVA. Did show moderate diffuse cerebral and cerebellar volume loss. Also showed possibility of mild multilevel cervical spinal cord compression secondary to multilevel discogenic degenerative disease. Patient at this time
denies any upper extremity sensory loss or weakness.
- consider consulting neurology if mental status does not improve
Added Tessalon Perles for cough
#cirrhosis of liver without ascites
#hepatic encephalopathy
splenomegaly
Abdominal ultrasound with minimal ascites
Continue to monitor ammonia
- continue lactulose, rifaximin
Abdominal x-ray consistent with constipation. Continue Dulcolax suppository, enema as needed
Monitor ammonia
#COPD
Does not appear to be in exacerbation
- continue Advair, guaifenesin, Ellipta, DuoNeb PRN
Hypokalemia
improved
Hyponatremia
Monitor
Chronic thrombocytopenia likely secondary to cirrhosis
Monitor
#depression
#anxiety
- continue lorazepam, sertraline
#GERD
- continue famotidine
#edema
- continue furosemide and spironolactone
#esophageal varices
Chronic pain syndrome with narcotic dependence:
-Hold sedating meds for now. Discussed with daughter and would avoid narcotics at this time.
Code status: Full code
DVT Prophylaxis: SCDs, lovenox
Anticipated Discharge: Today
Subjective/Interval History
-
Date of Service: March 23, 2024
Denies pain
Objective Data
-
Labs:
Laboratory Results
03/23/24
07:15
WBC 5.9
Hgb 11.1 L
Hct 33.9 L
Plt Count 85 L
Sodium 132 L
Potassium 4.2
Chloride 103
Carbon Dioxide 22
BUN 14
Creatinine 0.7
Glucose 87
Calcium 8.2 L
Total Bilirubin 1.4 H
AST 23
ALT 19
Alkaline Phosphatase 131 H
Vital Signs:
Vital Signs
Temp Pulse Resp BP Pulse Ox
98.6 F 80 16 94/45 93
03/23/24 07:35 03/23/24 08:20 03/23/24 08:20 03/23/24 09:05 03/23/24 08:20
I&O
03/22/24 03/23/24 03/24/24
06:59 06:59 06:59
Intake Total 960 / 960 240 / 240
Balance 960 / 960 240 / 240
--- NOTE | 2024-03-23 11:10 | W.DCSUMMARY ---
Discharge Summary
Discharge Data
Date of Admission: 03/20/24
Date of Discharge: 03/23/24
-
Pending Results: No
Hospital Course
69-year-old female with past medical history of cirrhosis, COPD, chronic thrombocytopenia, depression, anxiety, GERD, lower extremity edema, esophageal varices, chronic pain syndrome came to the hospital with toxic metabolic encephalopathy secondary
to pneumonia. On admission patient also had acute on chronic hypoxic respiratory failure and was initially put on 6 L of oxygen which was later to be weaned down to her baseline oxygen. Due to her confusion MRI was also done which did not show any
signs of acute CVA. It did show moderate diffuse cerebral and cerebellar volume loss which I discussed with the daughter. It also showed mild multilevel cervical spinal cord compression however patient had no neurological deficit. It also
appeared that patient pneumonia could be secondary to an aspiration event given recent nausea and vomiting. Over time patient mental status and symptoms continue to improve on IV antibiotics were later transitioned to p.o. antibiotics. She was
then discharged back to [facility] with instructions to follow-up with all her physicians outpatient.
Discharge Plan
-
Patient Disposition: Prison/SNF
Discharge Diagnosis/Procedures: Toxic metabolic encephalopathy secondary to pneumonia
Acute on chronic hypoxic respiratory failure
Constipation
Cirrhosis
Condition: Fair
Diet: As tolerated
Activity: As tolerated
Driving Restrictions: As prior to admission
Bathing Restrictions: None
Blood Work: CBC and BMP next week at SNF
Activity Restrictions/Additional Instructions:
Continue antibiotics for 2 more days.
Referrals:
UNKNOWN - PT NOT,INTERVIEWE [Family Provider] - in less than 1 week
Prescriptions:
New
benzonatate 100 mg Capsule
200 mg PO TID PRN (Reason: Cough) Qty: 0 0RF
doxycycline hyclate 100 mg Capsule
100 mg PO Q12 Qty: 0 0RF
cefdinir 300 mg capsule
300 mg PO BID Qty: 4 0RF
Continued
furosemide 20 mg Tablet
20 mg PO DAILY
lactulose 10 gram/15 mL Solution
15 ml PO TID
gabapentin 400 mg Capsule
400 mg PO TID
magnesium hydroxide [Milk of Magnesia] 400 mg/5 mL Suspension
30 ml PO [id number] PRN (Reason: if no BM in 3 days)
bisacodyl [Dulcolax (bisacodyl)] 10 mg Suppository
10 mg [place] DAILYPRN PRN (Reason: if MOM ineffective after 24 hrs)
melatonin 5 mg Tablet
5 mg PO HS
polyethylene glycol 3350 [Miralax] 17 gram Powder In Packet
17 g PO DAILYPRN PRN (Reason: constipation)
spironolactone 25 mg Tablet
25 mg PO DAILY
sertraline 25 mg Tablet
25 mg PO DAILY
lorazepam 0.5 mg Tablet
0.5 mg PO [id number] PRN (Reason: anxiety) Qty: 10 0RF
acetaminophen [Tylenol] 325 mg Tablet
650 mg PO Q4HPRN PRN (Reason: mild pain/temp>100F)
ursodiol 300 mg Capsule
300 mg PO BID
Fleet Enema 19-7 gram/118 mL Enema
118 ml VT DAILYPRN PRN (Reason: if no bm aftr dulcolax)
fluticasone propion-salmeterol [Advair Diskus] 100-50 mcg/dose Blister With Device
1 inh INHALATION R QPM
Incruse Ellipta 62.5 mcg/actuation Blister With Device
1 inh INHALATION R DAILY
famotidine [Pepcid] 20 mg Tablet
20 mg PO DAILY
calcium carbonate 500 mg calcium (1,250 mg) Tablet,Chewable
1,000 mg PO Q8HPRN PRN (Reason: reflux/indigestion)
magnesium glycinate 100 mg Tablet
100 mg PO HS
rifaximin 550 mg Tablet
550 mg PO BID
hydrocortisone 1 % Cream
1 applic TOPICAL BID
Rx Instructions:
L hip
ipratropium-albuterol 0.5 mg-3 mg(2.5 mg base)/3 mL solution for nebulization
3 ml inhalation R Q6HPRN PRN (Reason: shortness of breath or wheezing)
nicotine 14 mg/24 hr Patch 24 Hour
14 mg transdermal DAILY Qty: 30 0RF
guaifenesin 600 mg tablet extended release 12hr
1,200 mg PO BID
Rx Instructions:
started 03/11/24 for 10 days
Discontinued
hydrocodone-acetaminophen 5-325 mg tablet
1 tab PO [id number] PRN (Reason: moderate to severe pain)
Discharge Orders:
Discharge Patient (As Directed); Ordered 03/23/24
Ordered By: Jem Reid
Discharge Date and Time
Discharge Date/Time: 03/23/24 14:16
Print Language: NIGERIEN
[2024-03-23 11:40] VITALS: BP 98/43
--- NOTE | 2024-03-23 11:41 | CM ---
Per MD, patient stable for transfer back to SNF today.
Patient agreeable.
IMM completed.
Ambulance transport forms completed.
super[employer] time 1:45 pm,facility updated.
Plan: Back to [facility] today
[facility]
Report# [phone]
[2024-03-23] MEDS: ROCEPHIN 1000 MG IV (13:35)
[2024-03-23] MEDS: STERILE WATER FOR INJECTION 10 ML IV (13:35)
== END 2024-03-23 14:16 | DRG 193 ==
LOC: 1 ACUTE 11:54
PROVIDERS: Emergency Medicine; Nurse Practitioner Family; ADMITTING PHYSICIAN Hospitalist; ATTENDING PHYSICIAN Internal Medicine; EMERGENCY PHYSICIAN Emergency Medicine
DX: J18.9 Pneumonia, unspecified organism (principal); G92.8 Other toxic encephalopathy; J96.21 Acute and chronic respiratory failure with hypoxia; I85.10 Secondary esophageal varices without bleeding; J44.0 Chronic obstructive pulmonary disease with (acute) lower respiratory infection; F11.20 Opioid dependence, uncomplicated; F03.93 Unspecified dementia, unspecified severity, with mood disturbance; F03.94 Unspecified dementia, unspecified severity, with anxiety; G95.29 Other cord compression; J69.0 Pneumonitis due to inhalation of food and vomit; K74.69 Other cirrhosis of liver; G89.4 Chronic pain syndrome; K76.82 Hepatic encephalopathy; K21.9 Gastro-esophageal reflux disease without esophagitis; E87.6 Hypokalemia; D69.6 Thrombocytopenia, unspecified; K59.00 Constipation, unspecified; Z87.891 Personal history of nicotine dependence; Z79.51 Long term (current) use of inhaled steroids; Z79.899 Other long term (current) drug therapy
CPT/HCPCS: 70450; 70551; 71046; 74018; 76705; 80053; 81003; 82140; 82805; 84145; 85025; 85027; 93005; 94640; 97163; 97167; 97530; 97535; 99285

== ENCOUNTER → 2024-05-25 08:07 | Outpatient (REF) | payer MEDICARE, OTHER, SELFPAY | LOC: RST 08:07 | PROVIDERS: ATTENDING PHYSICIAN Internal Medicine | DX: R13.19 Other dysphagia (principal); J69.0 Pneumonitis due to inhalation of food and vomit | CPT/HCPCS: 74230; 92611 ==

== ENCOUNTER 2024-06-19 21:11 | Inpatient (IN) | payer MEDICARE, OTHER, SELFPAY ==
[2024-06-19] VITALS (15 sets, daily range): BP systolic 88–110; BP diastolic 42–58; BMI 21.0; BMI 20.1
[2024-06-19] MEDS: DUONEB 3 ML INH (16:06)
[2024-06-19 16:33] LABS: Lactic Acid 1.9 mmol/L (0.7-2.0)
[2024-06-19 16:36] LABS: ALT (SGPT) 16 U/L (0-35); AST (SGOT) 33 U/L (14-36); Albumin 3.4 g/dl (3.5-5.0); Alkaline Phosphatase 119 U/L (38-126); Blood Urea Nitrogen 17 mg/dl (7-17); Calcium 9.5 mg/dl (8.4-10.2); Carbon Dioxide 28 mmol/L (22-30); Chloride 105 mmol/L (98-107); Estimated Creatinine Clearance 45 ml/min; Glucose 139 mg/dl (70-99); Potassium 4.1 mmol/L (3.5-5.1); Sodium 140 mmol/L (135-145); Total Protein 6.2 g/dl (6.3-8.2); eGFR > 60.00
[2024-06-19 16:43] LABS: COVID-19 Antigen Negative (Negative)
[2024-06-19 17:16] LABS: % Basophils 0.4 % (0-2); % Eosinophils 0.4 % (0-6); % Immature Granulocytes 0.4 % (0-0.5); % Lymphocytes 12.6 % (20.5-51.1); % Monocytes 5.9 % (1.7-9.3); % Neutrophils 80.3 % (42.2-75.2); Absolute Lymphocytes 0.7 10^3/uL (1.2-3.4); Absolute Monocytes 0.3 10^3/uL (0.1-0.6); Absolute Neutrophils 4.5 10^3/uL (1.4-6.5); Hematocrit 35.3 % (37.0-47.0); Hemoglobin 11.2 g/dL (12.0-16.0); Mean Corp Hgb Conc. 31.7 g/dL (33.0-37.0); Mean Corpuscular Hgb 27.7 pg (27.0-31.0); Mean Corpuscular Volume 87.2 fL (81.0-99.0); Mean Platelet Volume 12.2 fL (7.4-10.4); Nucleated Red Blood Cells % 0 %; Platelet Count 80 10^3/uL (130-400); Red Blood Cell Count 4.05 10^6/uL (4.20-5.40); Red Cell Dist. Width 15.6 % (11.5-14.5); White Blood Cell Count 5.6 10^3/uL (4.8-10.8)
[2024-06-19] MEDS: TYLENOL 650 MG PO (18:16)
[2024-06-19] MEDS: NSS 1000 IV (18:17)
[2024-06-19] MEDS: SOLU-MEDROL PF 60 MG IV (18:18)
--- NOTE | 2024-06-19 18:37 | ED.GENMED ---
History of Present Illness
General
Chief Complaint: Breathing Problem
Time Seen by Provider: 06/19/24 15:36
History of Present Illness
History of Present Illness:
69-year-old female with history of COPD, paroxysmal A-fib, CHF, portal hypertension, esophageal varices, and chronic oxygen dependence presents to the emergency department for evaluation of shortness of breath and fever beginning this morning.
Multiple recent admissions within the past 6 months for recurrent pneumonia. She denies any purulent sputum production. Chronically on 3 L nasal cannula, arrives on nonrebreather due to hypoxia
Past History
Past History
ED Past Medical History: Arrthythmia (Atrial fibrillation), COPD, Other (cirrhosis of liver) and Other (neuropathy)
ED Past Surgical History: Orthopedic
Social History
Tobacco: Former smoker
Alcohol: None
Drug: None
Living: penitentiary
Review of Systems
Review of Systems
Allergies reviewed?: Yes
All Other Systems: ROS reviewed and negative except as documented in HPI and ROS
Phy Exam
Physical Exam
Physical Exam:
GEN: Thin, frail-appearing but not cachectic, tachypneic
Eyes: PERRLA, EOMs intact, no scleral icterus
HENT: NCAT, oral mucosa moist, no JVD
Lungs: Tachypneic but no accessory muscle usage, coarse rhonchi and wheezes heard throughout all lung wise predominantly on expiration
Cardiac: RRR, no M/R/G, no peripheral edema. Radial pulses 2+ bilat
Neuro: AO x 3
MSK: No gross deformity or ecchymosis. No edema. No digital clubbing
Skin: No rashes, petechiae. Normal color, no pallor or jaundice.
Psych: Calm, cooperative, proper hygiene
Scores
Heart Failure Risk
Heart Failure Risk Score: Not Applicable
Sepsis
Sepsis Screening
Sepsis Assessment: Sepsis Ruled Out
Sepsis Screen
Sepsis Screen: Sepsis Ruled Out
Date: 06/19/24
Time: 19:23
Course
Orders/Labs/Results
Orders:
Orders
06/19/24
Electrocardiogram (*1) Stat
Reason for Study: Chest Pain
Comment: DONE
06/19/24 15:47
Ipratropium/Albuterol Sulfate [Duoneb] 3 ml INH R NOW ONE
06/19/24 15:48
CR Chest - 2 Views Urgent
Comment:
Reason For Exam: SOB
06/19/24 16:10
COVID-19 Antigen Urgent
Source: Nasal Swab
Influenza A+B Rapid Molecular Urgent
ANTONIO Source: Nasal Swab
Specimen Description:
06/19/24 16:11
Complete Blood Count/With Diff Urgent
Comprehensive Metabolic Panel Urgent
Lactic Acid Q4H
Comment: CANCEL 2nd LACTIC ACID IF 1st LACTIC ACID IS LESS THAN 2
Blood Culture Q30M
ANTONIO Source: Blood/Venous
Specimen Description:
06/19/24 16:58
Blood Culture Q30M
ANTONIO Source: Blood/Venous
Specimen Description:
06/19/24 17:41
0.9% Sodium Chloride 1000 ml [Nss] 1,000 ml IV BOLUS
Acetaminophen [Tylenol] 650 mg PO NOW STA
MethylPREDNISolone PF [Solu-Medrol Pf] 60 mg IV NOW STA
Abnormal Lab Results
06/19/24
16:11
RBC 4.05 L 10^6/uL
(4.20-5.40)
Hgb 11.2 L g/dL
(12.0-16.0)
Hct 35.3 L %
(37.0-47.0)
MCHC 31.7 L g/dL
(33.0-37.0)
RDW 15.6 H %
(11.5-14.5)
Plt Count 80 L 10^3/uL
(130-400)
MPV 12.2 H fL
(7.4-10.4)
Absolute Lymphs (auto) 0.7 L 10^3/uL
(1.2-3.4)
Neutrophils % 80.3 H %
(42.2-75.2)
Lymphocytes % 12.6 L %
(20.5-51.1)
Glucose 139 H mg/dl
(70-99)
Total Protein 6.2 L g/dl
(6.3-8.2)
Albumin 3.4 L g/dl
(3.5-5.0)
06/19/24 16:11
06/19/24 16:11
Vital Signs
Initial and Last Documented VS:
Initial Vital Signs
Temp Pulse Resp BP Pulse Ox
101.3 F H 97 20 88/54 93
06/19/24 15:47 06/19/24 15:47 06/19/24 15:47 06/19/24 15:47 06/19/24 15:47
Last Documented Vital Signs
Temp Pulse Resp BP Pulse Ox
100.3 F 79 14 110/53 97
06/19/24 18:15 06/19/24 18:30 06/19/24 18:30 06/19/24 18:30 06/19/24 18:30
MDM/Problems Addressed
MDM/Problems Addressed:
No evidence of new infiltrate on chest x-ray, appears to represent predominantly chronic findings. She is febrile but with no leukocytosis I suspect this is a viral mediated COPD exacerbation. Does not appear to be volume overloaded to suggest
acute CHF. Initially hypotensive on arrival but tolerated fluid challenge quite well. Due to brittle lung health at baseline will admit for IV steroids and neb treatments
*Critical Care Note
Total Time (30-74mins, 75-104mins- exclusive of procedures): Not Applicable
ED Attending Note
-
Portions of this chart may have been created with voice recognition software.� Occasional wrong word or��sound alike� substitutions may have occurred due to the inherent limitations of voice recognition software.
Discharge Plan
Departure
Patient Disposition: Admit
Date of Disposition: 06/19/24
Time of Disposition: 18:40
Presentation/result/management discussed w/ accepting MD/DO: Hospitalist
Discharge Problem:
Acute exacerbation of chronic obstructive pulmonary disease (COPD), Viral respiratory infection
Prescriptions:
No Action
furosemide 20 mg Tablet
20 mg PO DAILY
lactulose 10 gram/15 mL Solution
15 ml PO TID
gabapentin 400 mg Capsule
400 mg PO TID
magnesium hydroxide [Milk of Magnesia] 400 mg/5 mL Suspension
30 ml PO [id number] PRN (Reason: if no BM in 3 days)
bisacodyl [Dulcolax (bisacodyl)] 10 mg Suppository
10 mg [place] DAILYPRN PRN (Reason: if MOM ineffective after 24 hrs)
melatonin 5 mg Tablet
5 mg PO HS
polyethylene glycol 3350 [Miralax] 17 gram Powder In Packet
17 g PO DAILYPRN PRN (Reason: constipation)
spironolactone 25 mg Tablet
25 mg PO DAILY
sertraline 25 mg Tablet
25 mg PO DAILY
lorazepam 0.5 mg Tablet
0.5 mg PO [id number] PRN (Reason: anxiety) Qty: 10 0RF
acetaminophen [Tylenol] 325 mg Tablet
650 mg PO Q4HPRN PRN (Reason: mild pain/temp>100F)
ursodiol 300 mg Capsule
300 mg PO BID
Fleet Enema 19-7 gram/118 mL Enema
118 ml [place] DAILYPRN PRN (Reason: if no bm aftr dulcolax)
fluticasone propion-salmeterol [Advair Diskus] 100-50 mcg/dose Blister With Device
1 inh INHALATION R QPM
Incruse Ellipta 62.5 mcg/actuation Blister With Device
1 inh INHALATION R DAILY
famotidine [Pepcid] 20 mg Tablet
20 mg PO DAILY
calcium carbonate 500 mg calcium (1,250 mg) Tablet,Chewable
1,000 mg PO Q8HPRN PRN (Reason: reflux/indigestion)
magnesium glycinate 100 mg Tablet
100 mg PO HS
rifaximin 550 mg Tablet
550 mg PO BID
hydrocortisone 1 % Cream
1 applic TOPICAL BID
Rx Instructions:
L hip
ipratropium-albuterol 0.5 mg-3 mg(2.5 mg base)/3 mL solution for nebulization
3 ml inhalation R Q6HPRN PRN (Reason: shortness of breath or wheezing)
nicotine 14 mg/24 hr Patch 24 Hour
14 mg transdermal DAILY Qty: 30 0RF
hydrocodone-acetaminophen 5-325 mg Tablet
1 tab PO BIDPRN PRN (Reason: severe pain)
Refresh Optive 0.5-0.9 % Drops
1 drp BOTH EYES BID
benzonatate 100 mg capsule
200 mg PO TIDPRN PRN (Reason: Cough)
Referrals:
Douglas Conner I., DO [Family Provider] -
Interventions
Interventions:
*Risk Screen - Suicide Last Done: 06/19/24 15:47
*General Assessment Last Done: 06/19/24 15:47
*Neglect/Abuse Screening Last Done: 06/19/24 15:47
*ED- Fall Risk Assessment Last Done: 06/19/24 16:01
*ED COVID-19 Vaccine History Last Done: 06/19/24 15:47
ED- Cardiac Assessment Last Done: 06/19/24 16:01
ED- Pulmonary Assessment Last Done: 06/19/24 16:01
Discharge Date and Time
Print Language: ROMANIAN
--- NOTE | 2024-06-19 20:40 | HPS.HSE ---
Family Physician
-
Family Physician: Douglas Conner
Chief Complaint
-
shortness of breath
History of Present Illness
This is a 69-year-old female with history of COPD on 3 L home O2, paroxysmal A-fib not anticoagulated, CHF, portal hypertension, esophageal varices, and chronic oxygen dependence presents to the emergency department for evaluation of shortness of
breath and fever beginning this morning.
She reports her no previous fevers. She has productive cough but did not purulent sputum. Was brought into the emergency department on nonrebreather but currently satting 96% on 5 L. Multiple recent admissions within the past 6 months for
recurrent pneumonia.
Intermittent back pain, nausea rhythm 100.3, blood pressure 107/58 with pulse of 65 satting 96%.
CBC was remarkable for a platelet of 88 which is chronic. ECG showed normal sinus rhythm and no acute ST or T wave changes. Electrolytes. Creatinine was normal.
Chest x-ray shows a mild right lower lobe infiltrate.
Medical History
Past Medical History
Past Medical History: Reports Other
Additional Past Medical History:
cirrhosis of liver without ascites
hepatic encephalopathy
COPD
depression
anxiety
GERD
esophageal varices
Past Surgical History: Reports Other
Additional Past Surgical History:
bilateral hip
BRTO
back
Social History
Unable to obtain full social history at this time due to: Dementia
Family History
Family History: Unable to Obtain
Allergies / Home Medications
Allergies reflects when Allergies were last updated in [employer].
Home Medications with original date entered in [employer]
Allergy/Medication List:
Allergies
Allergy/AdvReac Type Severity Reaction Status Date / Time
No Known Allergies Allergy Verified 03/19/24 12:28
Home Medications
furosemide 20 mg tablet 20 mg PO DAILY Fluid Retention/Swelling 01/29/23
lactulose 10 gram/15 mL oral solution 15 ml PO TID Liver Issues 01/29/23
bisacodyl 10 mg rectal suppository (Dulcolax (bisacodyl)) 10 mg [place] DAILYPRN PRN if MOM ineffective after 24 hrs 05/27/23
gabapentin 400 mg capsule 400 mg PO TID Nerve pain 05/27/23
magnesium hydroxide 400 mg/5 mL oral suspension (Milk of Magnesia) 30 ml PO [id number] PRN if no BM in 3 days 05/27/23
melatonin 5 mg tablet 5 mg PO HS Sleep 05/27/23
polyethylene glycol 3350 17 gram oral powder packet (Miralax) 17 g PO DAILYPRN PRN constipation 05/27/23
sertraline 25 mg tablet 25 mg PO DAILY Mental Health/Anxiety 05/27/23
spironolactone 25 mg tablet 25 mg PO DAILY Fluid Retention/Swelling 05/27/23
lorazepam 0.5 mg tablet 0.5 mg PO [id number] PRN anxiety #10 tabs 05/31/23
acetaminophen 325 mg tablet (Tylenol) 650 mg PO Q4HPRN PRN mild pain/temp>100F 08/14/23
fluticasone 100 mcg-salmeterol 50 mcg/dose blistr powdr for inhalation (Advair Diskus) 1 inh inhalation R QPM Lung/Breathing Issues 08/14/23
sodium phosphates 19 gram-7 gram/118 mL enema (Fleet Enema) 118 ml [place] DAILYPRN PRN if no bm aftr dulcolax 08/14/23
umeclidinium 62.5 mcg/actuation blister powder for inhalation (Incruse Ellipta) 1 inh inhalation R DAILY Lung/Breathing Issues 08/14/23
ursodiol 300 mg capsule 300 mg PO BID gallstones 08/14/23
calcium carbonate 1,000 mg PO Q8HPRN PRN reflux/indigestion 01/13/24
famotidine 20 mg tablet (Pepcid) 20 mg PO DAILY Gastrointestinal Issue 01/13/24
hydrocodone 5 mg-acetaminophen 325 mg tablet 1 tab PO [id number] PRN moderate to severe pain 01/13/24
magnesium glycinate 100 mg (as glycinate) tablet 100 mg PO HS 01/13/24
rifaximin 550 mg tablet 550 mg PO BID 01/13/24
hydrocortisone 1 % topical cream 1 applic topical BID Skin Issues 03/07/24
ipratropium 0.5 mg-albuterol 3 mg (2.5 mg base)/3 mL nebulization soln 3 ml inhalation R Q6HPRN PRN shortness of breath or wheezing 03/07/24
nicotine 14 mg/24 hr daily transdermal patch 14 mg transdermal DAILY #30 ea 03/11/24
guaifenesin 600 mg tablet, extended release 12 hr 1,200 mg PO BID 03/19/24
Review of Systems
-
History Source: Patient
Constitutional: Reports Fever
EENT: Reports No Symptoms
Respiratory: Reports Cough and Trouble Breathing
Cardiac: Reports No Symptoms
Abdomen/GI: Reports No Symptoms
: Reports No Symptoms
Musculoskeletal: Reports No Symptoms
Skin: Reports No Symptoms
Neurological: Reports No Symptoms
Endocrine: Reports No Symptoms
Hematologic/Lymphatic: Reports No Symptoms
Psych: Reports No Symptoms
Physical Exam
Vital Signs
Vital Signs
Temp Pulse Resp BP Pulse Ox
100.3 F 65 13 107/58 97
06/19/24 18:15 06/19/24 20:32 06/19/24 20:32 06/19/24 20:32 06/19/24 20:32
Physical Exam
General: Respiratory Distress and Appears Chronically Ill
HEENT: NormoCephalic, Anicteric and Moist mucous membranes
Respiratory: Wheezes
Cardiac: S1/S2 and Regular Rhythm
Breast: Deferred by me
GI: Soft, Non Tender, Non Distended and Normal Bowel Sounds
Rectal: Deferred by Provider
Genito-urinary: Deferred by me
Musculoskeletal: No Clubbing, No Cyanosis and No Edema
Skin: Warm
Neuro: AO x 3 and Nonfocal/grossly intact
Hematologic/Lymphatic: No Lymphadenopathy
Psych: Calm
Laboratory Results
-
06/19/24 16:11
06/19/24 16:11
Laboratory Results
Lactic Acid Cancelled 06/19/24 20:00
Total Bilirubin 1.0 mg/dl (0.2-1.3) 06/19/24 16:11
AST 33 U/L (14-36) 06/19/24 16:11
ALT 16 U/L (0-35) 06/19/24 16:11
Alkaline Phosphatase 119 U/L (38-126) 06/19/24 16:11
Data Reviewed
-
Diagnostic Radiology: Report Reviewed by me
Medical Tests (Nuc Med, Echo, EKG etc): Image Personally Visualized and interpreted
Lab Data: Labs Reviewed by me
Old Records: Reviewed
Impression/Plan
-
IMPRESSION:
69-year-old female with history of COPD on 3 L home O2, proximal atrial fibrillation not on anticoagulation, history of alcoholic cirrhosis complicated by esophageal varices presenting to the emergency department with cough shortness of breath and
low-grade fever. There is no leukocytosis. Labs otherwise stable. She however has chest x-ray showing mild right lower lobe pneumonia. Likely viral. COVID and flu negative. Blood culture sent.
PLAN:
1. COPD exacerbation -COPD exacerbation with mild right lower lobe pneumonia. Patient has low-grade temps and is requiring more oxygen compared to baseline. She has bilateral wheezes throughout the lung wise.
- admit to med/surg
- will start ceftriaxone/azithromycin
- solumedrol 40mg q 6 and taper
- continue duonebs prn
- continue home long acting beta agonist and inhaled steroids
- wean o2 as tolerated
- pneumonia urinary ags
2. Liver disease - thrombocytopenia but otherwise well compensated
- continue lasix/spironalactone
- continue lactulose and rifaximin
DVT PPX - lovenox sq
Code status - full code
[2024-06-20] MEDS: DUPHALAC/CHRONULAC 10 GRAMS PO ×4 (00:08→21:59)
[2024-06-20] MEDS: ROCEPHIN 1000 MG IV ×2 (00:08→23:17)
[2024-06-20] MEDS: NEURONTIN 400 MG PO ×4 (00:08→22:00)
[2024-06-20] MEDS: MELATONIN 5 MG PO ×2 (00:08→22:00)
[2024-06-20] MEDS: SOLU-MEDROL PF 40 MG IV ×3 (00:09→20:16)
[2024-06-20] MEDS: STERILE WATER FOR INJECTION 10 ML IV ×2 (00:09→23:20)
[2024-06-20 06:00] VITALS: BMI 20.2
[2024-06-20 07:30] VITALS: BP 99/45
[2024-06-20] MEDS: SPIRIVA RESPIMAT 2.5 MCG 2 PUFF INH (07:46)
[2024-06-20 07:51] LABS: Hematocrit 35.5 % (37.0-47.0); Hemoglobin 11.2 g/dL (12.0-16.0); Mean Corp Hgb Conc. 31.5 g/dL (33.0-37.0); Mean Corpuscular Volume 88.8 fL (81.0-99.0); Mean Platelet Volume 11.6 fL (7.4-10.4); Platelet Count 65 10^3/uL (130-400); Red Cell Dist. Width 15.4 % (11.5-14.5); White Blood Cell Count 2.8 10^3/uL (4.8-10.8)
[2024-06-20 08:05] LABS: Blood Urea Nitrogen 22 mg/dl (7-17); Calcium 8.9 mg/dl (8.4-10.2); Carbon Dioxide 26 mmol/L (22-30); Chloride 106 mmol/L (98-107); Estimated Creatinine Clearance 51 ml/min; Glucose 143 mg/dl (70-99); Magnesium 2.1 mg/dl (1.6-2.3); Potassium 4.2 mmol/L (3.5-5.1); Sodium 143 mmol/L (135-145); eGFR > 60.00
[2024-06-20 08:19] LABS: Procalcitonin < 0.05 ng/ml (0.0-0.25)
--- NOTE | 2024-06-20 08:42 | W.PN.HOSP.TC ---
Today's Communication/Plan
-
see PN
Assessment / Plan
Assessment / Plan
69yo F with PMHX of spinal Sx with chronic back pain, liver cirrhosis chronic respiratory failure on 3L home O2 2/2 COPD came with worsening cough, subjective fevers, on admission with worsening hypoxia and possible RLL pneumonia. #rd
hospitaliszation for the same over past 4 months. Managed for COPD exacerbation
A/P:
#Acute on chronic hypoxic resporatory failure 2/2 COPD exacerbation with questionable RLL pneumonia
#Pulmonary HTN
Taper steroids
cont bronchodilators
wean off O2 to 3L
Mucolythics
Azithromicin/Ceftriaxone, but with neg Procalcitonin strongly doubt bacterial pneumonia
COVID-19 and Influenza PCR neg
Check S.pneumonia and legionella urinary Ag
Sputum Cx if possible
Pulm consult
#minimal leukopenia
follow CBC
#liver cirrosis with chronic thrombocytopenia
#GERD
cont home meds
DVT ppx lovenox
FUll code
I have spent a t least 56min reviewing chart, test results, communication with consultants and providing direct patient care
Anticipated Discharge: 24 - 48 hours
Subjective/Interval History
-
Date of Service: June 20, 2024
Objective Data
-
Labs:
Laboratory Results
06/20/24
06:00
WBC 2.8 L
Hgb 11.2 L
Hct 35.5 L
Plt Count 65 L
Sodium 143
Potassium 4.2
Chloride 106
Carbon Dioxide 26
BUN 22 H
Creatinine 0.8
Glucose 143 H
Calcium 8.9
Vital Signs:
Vital Signs
Temp Pulse Resp BP Pulse Ox
98.2 F 72 19 99/45 93
06/20/24 07:30 06/20/24 08:02 06/20/24 08:02 06/20/24 07:30 06/20/24 08:02
I&O
06/19/24 06/20/24 06/21/24
06:59 06:59 06:59
Intake Total 480 / 480
Balance 480 / 480
Review of Systems
-
History Source: Patient
All other systems: Reviewed and negative
Physical Exam
-
General: No Apparent Distress and Cachectic
HEENT: Normocephalic
Respiratory: Decreased Breath Sounds; Negative Wheezes
Cardiac: Regular Rhythm
GI: Soft, Nontender and Nondistended
Musculoskeletal: No Clubbing, No Cyanosis and No Edema
Psych: Calm
[2024-06-20 08:56] LABS: Hepatitis C Antibody Negative (Negative)
[2024-06-20 09:09] LABS: Urine Albumin 1+ (Neg - Trace); Urine Bilirubin Negative (Negative); Urine Character Clear (Clear); Urine Color Yellow; Urine Glucose Negative (Negative); Urine Ketone Negative (Negative); Urine Leukocyte Negative (Negative); Urine Nitrite Negative (Negative); Urine Occult Blood Negative (Negative); Urine Specific Gravity 1.015 (<1.030); Urine Urobilinogen Negative (Neg - 1+)
[2024-06-20] MEDS: ACTIGALL 300 MG PO ×2 (09:13→20:15)
[2024-06-20] MEDS: MUCINEX 1200 MG PO ×2 (09:13→20:15)
[2024-06-20] MEDS: ZOLOFT 25 MG PO (09:14)
[2024-06-20] MEDS: XIFAXAN 550 MG PO ×2 (09:14→20:15)
[2024-06-20] MEDS: PEPCID 20 MG PO (09:14)
[2024-06-20] MEDS: ALDACTONE 25 MG PO (09:14)
[2024-06-20] MEDS: LASIX 20 MG PO (09:14)
[2024-06-20] MEDS: ZITHROMAX 500 MG PO (09:14)
[2024-06-20] MEDS: REFRESH CELLUVISC GEL 1 DROPS BOTH EYES ×2 (09:15→20:15)
--- NOTE | 2024-06-20 09:28 | CON.PUL ---
Consultation
Consultation Request
Date/Time Consultation Requested: 06/20/2024834
Date/Time Consultation Performed: 06/20/2024919
Requesting Provider: Dr. Erazo
Performing Provider: Dr. Mendoza
Reason for Consultation: COPD exacerbation
Medical History
-
Chief Complaint: SOB + fever
History of Present Illness:
69-year-old female with a past medical history of alcoholic cirrhosis, COPD on supplemental oxygen and history of HE + EV who presents with worsening SOB + fever. Patient arrived to ER on 100 send NRB via EMS. She normally wears 3 L/min nasal
cannula. 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 Patient follows with us in the office with last visit on 03/01/2024 with MOIZ Connolly. At that time she was stable with her moderate severity shortness of breath mainly with exertion and
endorsed a productive cough with minimal amounts of yellow sputum. She was on Advair diskus 100 mcg + Incruse. She was rarely using her rescue inhaler. Last spirometry on 12/07/2023 showing Gold class II COPD with a significant bronchodilator
response with post-BD FEV1: 1.08 L / 52% predicted. Of note she was hospitalized twice in February for suspected right lower lobe pneumonia. She did have a video fluoroscopic swallow exam on 05/25/2024 showing no fluoroscopic evidence for airway
aspiration. For her current hospitalization, she was febrile in the ER to 101.3 �F, pulse rate 97, respiratory rate 20, BP 88/54 and saturating 93% on 5 L/min. Labs showed WBC 5.6, Hb 11.2, platelet count 80, glucose 139, and COVID-19 antigen
negative. Flu swab was negative for influenza A + B. Blood cultures were collected, and CXR showed suspected mild right lower lobe pneumonia. In the ER she was given DuoNebs, Solu-Medrol 60 mg, 1 L NS 0.9% + Tylenol. She was admitted to the
hospitalist service and now Pulmonary service consulted for additional management/recommendations.
When I saw the patient she was resting in bed in no acute distress. Says she has had a few days of worsening cough but nothing comes up. She currently feels okay but continues to feel short of breath with even mild activity. She denies chest
pain, MAY, nausea, fevers or chills.
PMHx: COPD, alcoholic cirrhosis with history of HE + esophageal varices, polyneuropathy, anxiety, depression, chronic hypoxic respiratory failure on supplemental oxygen (3L/min)
PSHx: Hip surgery, back surgery
Past Medical History
Past Medical History: Other (Above as per HPI)
Past Surgical History: Other (Above as per HPI)
Social History
Tobacco: Non-smoker
Alcohol: None
Drug: None
Living: Residential
Family History
Family History: Diabetes (Brother)
Allergies / Home Medications
Allergies
Allergy/AdvReac Type Severity Reaction Status Date / Time
No Known Allergies Allergy Verified 03/19/24 12:28
Home Medications
�Medication �Instructions �Recorded �Confirmed �Last Taken �Type
furosemide 20 mg tablet 20 mg PO DAILY Fluid 01/29/23 06/19/24 01/13/24 History
Retention/Swelling
lactulose 10 gram/15 mL oral 15 ml PO TID Liver Issues 01/29/23 06/19/24 01/14/24 06:00 History
solution
bisacodyl 10 mg rectal suppository 10 mg MT DAILYPRN PRN if MOM 05/27/23 06/19/24 Unknown History
(Dulcolax (bisacodyl)) ineffective after 24 hrs
gabapentin 400 mg capsule 400 mg PO TID Nerve pain 05/27/23 06/19/24 01/14/24 06:00 History
magnesium hydroxide 400 mg/5 mL 30 ml PO [id number] PRN if no BM in 3 05/27/23 06/19/24 Unknown History
oral suspension (Milk of Magnesia) days
melatonin 5 mg tablet 5 mg PO HS Sleep 05/27/23 06/19/24 01/13/24 History
polyethylene glycol 3350 17 gram 17 g PO DAILYPRN PRN constipation 05/27/23 06/19/24 Unknown History
oral powder packet (Miralax)
sertraline 25 mg tablet 25 mg PO DAILY Mental 05/27/23 06/19/24 01/13/24 History
Health/Anxiety
spironolactone 25 mg tablet 25 mg PO DAILY Fluid 05/27/23 06/19/24 01/13/24 History
Retention/Swelling
lorazepam 0.5 mg tablet 0.5 mg PO [id number] PRN anxiety #10 05/31/23 06/19/24 01/12/24 Rx
tabs
acetaminophen 325 mg tablet 650 mg PO Q4HPRN PRN mild 08/14/23 06/19/24 01/04/24 History
(Tylenol) pain/temp>100F
fluticasone 100 mcg-salmeterol 50 1 inh inhalation R QPM 08/14/23 06/19/24 01/14/24 History
mcg/dose blistr powdr for Lung/Breathing Issues
inhalation (Advair Diskus)
sodium phosphates 19 gram-7 118 ml MT DAILYPRN PRN if no bm 08/14/23 06/19/24 Unknown History
gram/118 mL enema (Fleet Enema) aftr dulcolax
umeclidinium 62.5 mcg/actuation 1 inh inhalation R DAILY 08/14/23 06/19/24 01/14/24 History
blister powder for inhalation Lung/Breathing Issues
(Incruse Ellipta)
ursodiol 300 mg capsule 300 mg PO BID gallstones 08/14/23 06/19/24 01/14/24 06:00 History
calcium carbonate 1,000 mg PO Q8HPRN PRN 01/13/24 06/19/24 Unknown History
reflux/indigestion
famotidine 20 mg tablet (Pepcid) 20 mg PO DAILY Gastrointestinal 01/13/24 06/19/24 01/14/24 06:00 History
Issue
magnesium glycinate 100 mg (as 100 mg PO HS Supplement 01/13/24 06/19/24 01/13/24 History
glycinate) tablet
rifaximin 550 mg tablet 550 mg PO BID Liver Issues 01/13/24 06/19/24 01/14/24 06:00 History
hydrocortisone 1 % topical cream 1 applic topical BID left hip 03/07/24 06/19/24 Unknown History
ipratropium 0.5 mg-albuterol 3 mg 3 ml inhalation R Q6HPRN PRN 03/07/24 06/19/24 Unknown History
(2.5 mg base)/3 mL nebulization shortness of breath or wheezing
soln
nicotine 14 mg/24 hr daily 14 mg transdermal DAILY #30 ea 03/11/24 06/19/24 Unknown Rx
transdermal patch
benzonatate 100 mg capsule 200 mg PO TIDPRN PRN Cough 06/19/24 06/19/24 Unknown History
carboxymethylcellulose 0.5 1 drp BOTH EYES BID Eye Condition 06/19/24 06/19/24 Unknown History
%-glycerin 0.9 % eye drops
(Refresh Optive)
hydrocodone 5 mg-acetaminophen 325 1 tab PO BIDPRN PRN severe pain 06/19/24 06/19/24 Unknown History
mg tablet
Review of Systems
-
History Source: Patient
All other systems: Negative unless noted
Vitals / Labs / Diagnostic Testing
Vital Signs
Temp Pulse Resp BP Pulse Ox
98.2 F 72 19 99/45 93
06/20/24 07:30 06/20/24 08:02 06/20/24 08:02 06/20/24 07:30 06/20/24 08:02
Lab Data
06/20/24 06:00
06/20/24 06:00
Microbiology
06/20/24 08:46 Urine Legionella Urinary Antigen - Final
Negative for Legionella pneumophila Serogroup 1 antigen.
A negative result does not rule out the possiblity of
Legionella infection due to other serogroups or species of
Legionella. Clinical correlation is recommended.
06/20/24 08:46 Urine Streptococcus pneumoniae Antigen (M - Final
Negative for Streptococcus pneumoniae antigen.
A negative result does not exclude infection with
Streptococcus pneumoniae. Clinical correlation is
recommended.
06/19/24 16:10 Nasal Swab Influenza Types A & B (ISAAC) - Final
Negative for Influenza A & B, NAAT
Negative results must be combined with clinical observations
and patient history.
Nucleic Acid Amplification test (NAAT)performed on the
[employer] platform.
Diagnostic Testing:
Physical Exam
-
HEENT: Normocephalic and Anicteric
Cardiovascular: Peripheral Edema (negative)
Respiratory: Wheeze (negative), Rales (Bilaterally (mainly in the bases)), Rhonchi (Bilaterally (mainly in the bases)) and Accessory Resp Muscle Use (with exertion)
GI: Soft, Non Distended, Non Tender and Normal Bowel Sounds
Neurology: Awake, Alert and Tremors (negative)
Skin: Warm and Dry
General: Respiratory Distress (negative), Comfortable, Fever (negative) and Chills (negative)
Assessment
-
Assessment: 69-year-old female with a past medical history of alcoholic cirrhosis, COPD on supplemental oxygen and history of HE + EV who presents with worsening SOB + fever. Patient arrived to ER on 100 send NRB via EMS. She normally wears 3
L/min nasal cannula. 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 Patient follows with us in the office with last visit on 03/01/2024 with MOIZ Connolly. At that time she was stable with her moderate severity shortness of breath mainly with
exertion and endorsed a productive cough with minimal amounts of yellow sputum. She was on Advair diskus 100 mcg + Incruse. She was rarely using her rescue inhaler. Last spirometry on 12/07/2023 showing Gold class II COPD with a significant
bronchodilator response with post-BD FEV1: 1.08 L / 52% predicted. Of note she was hospitalized twice in February for suspected right lower lobe pneumonia. She did have a video fluoroscopic swallow exam on 05/25/2024 showing no fluoroscopic evidence
for airway aspiration. For her current hospitalization, she was febrile in the ER to 101.3 �F, pulse rate 97, respiratory rate 20, BP 88/54 and saturating 93% on 5 L/min. Labs showed WBC 5.6, Hb 11.2, platelet count 80, glucose 139, and COVID-19
antigen negative. Flu swab was negative for influenza A + B. Blood cultures were collected, and CXR showed suspected mild right lower lobe pneumonia. In the ER she was given DuoNebs, Solu-Medrol 60 mg, 1 L NS 0.9% + Tylenol. She was admitted to
the hospitalist service and now Pulmonary service consulted for additional management/recommendations
Chronic conditions ASSISTANT MANAGER OF OPERATIONS: COPD/emphysema, alcoholic cirrhosis with history of HE + esophageal varices, polyneuropathy, anxiety, depression, chronic hypoxic respiratory failure on supplemental oxygen (3L/min)
Impression:
#Acute COPD exacerbation
#CAP involving RLL (recurrent)
#Acute on chronic respiratory failure with hypoxia due to above
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
#Chronic anemia (baseline Hb 10 - 11.5 g/dL)
#Chronic thrombocytopenia due to cirrhosis
#Former tobacco smoker ([id number] history, quit smoking in January 2023
#Right upper lobe nodule s/p robotic bronchoscopy on 01/14/2024 which was negative for malignancy and is suspected to be an infectious/inflammatory process
#Small sliding hiatal hernia
#Interstitial lung abnormalities involving the posterior right lower lobe, suspected to be due to nature of atelectasis + mucous plugging vs aspiration as she does have bronchiectasis in this region and significant bronchial wall thickening (via CT
Chest 12/2023)
#Hx of alcoholic cirrhosis with Hx of HE + EV
Plan:
- She has chronic opacification in the right lower lobe which is best seen on prior CT chest from 01/07/2024 with focal bronchiectasis with significant bronchial wall thickening; it appears more opacified now on current CXR from 06/19/2024, and with
the concomitant fevers and worsening hypoxia it is appropriate to suspect she has a active pneumonia
- Continue broad-spectrum antibiotics with ceftriaxone + Zithromax, and would plan to treat for total of 7 days assuming she continues to clinically improve and remains afebrile for 48 hours prior to stopping antibiotics
- Follow-up infectious workup including blood cultures; urine antigens for Legionella + strep pneumonia both negative; check sputum culture if she can produce a decent sample
- Continue with systemic steroids and wean as she clinically improves � currently on Solu-Medrol 40 mg IV q12hr
- Maintain SpO2 88-95% with supplemental O2 and wean down as tolerated
- Would recheck home O2 assessment prior to discharge back to her retirement
- PT/OT once she has improved with her degree of SOB
- She takes Advair diskus 100mcg + Incruse at home --> would stop spiriva for now and Tx with DuoNebs QID with prn duonebs for breakthrough symptoms
- Mucolytics with Mucinex; acapella; will trial Vest therapy with nebulized 3% HT for more aggressive assistance with expectoration
- Aspiration precautions; keep HOB >30-45�
- Consider DIAMOND SANDER eval, although she recently obtained a videofluoroscopic swallow evaluation on 05/25/2024 showing no fluoroscopic evidence for aspiration into the airway
- She was hospitalized twice in February due to a right lower lobe pneumonia, where she was altered after she had vomited on 03/19/2024 and was acutely hypoxic, and she was Tx for a COPD flare on 03/07/2024 admission and was acutely hypoxic
- Considering her multiple readmissions for right lower lobe pneumonia + COPD flares, she would be a candidate for refractory COPD treatment with azithromycin or Ohtuvayre, possibly both; once she is done with current course of Abx, then would
change to azithromycin 250mg daily with outpatient audiology and occasional monitoring of her QTc (459ms on EKG from 06/19/2024); not a candidate for dupixent as her absolute eos are <300; given her recurrent PNA, ideally we would stop her ICS - she
does not feel a benefit with Advair, so changing to a LAMA/LABA seems appropriate. She reports that she likes taking nebulizers so would DC home with Striverdi + yupelri
- Incentive spirometer encouraged q1hr while awake
- Replete electrolytes with K>4, Mg>2
- Trend H/H and transfuse if needed to keep Hb>7g/dL; keep plt>20k, unless there is concern for bleeding then keep plt>50k
- Maintain euglycemia with goal BG >100 and <180
- DVT ppx: LMWH
Pulmonary service will continue to follow along. Will assure she has outpatient pulmonary office follow up as well. She will need repeat imaging with CXR to assure her right lower lobe pneumonia improves
Data:
CXR 06/19/2024:
Mild right lower lobe pneumonia.
Stable mild cardiomegaly and mild vascular congestion. Suspect trace pleural effusion.
Total time spent today was 56 minutes for this encounter. Time includes reviewing laboratory test/imaging results, reviewing pertinent medical records, obtaining and reviewing medical history, performing an appropriate exam, ordering medications,
tests and procedures. Time also includes documentation of this encounter, coordinating patient care and communicating with other healthcare professionals. Total time does not include separately billed tests performed on this date of service.
[2024-06-20 10:11] LABS: Urine Squamous Cell >30 /LPF (Few)
[2024-06-20 10:12] LABS: Urine Amorphous Seen
[2024-06-20 10:15] LABS: Urine Bacteria Few (Negative); Urine Red Blood Cell 0-2 /HPF (0-2)
--- NOTE | 2024-06-20 12:49 | CM ---
Reviewed the chart notes and spoke with the patient at the bedside. The patient is a correction resident of [facility]. Patient usually self propels in wheelchair. Patient is able to ambulate with assistance using a rolling walker. Patient
is on O2@3L/min continuously. CM continues to be available to patient/family and is monitoring medical plan for needs at discharge.
Plan: Discharge back to [facility] when medically stable.
[2024-06-20] MEDS: DUONEB 3 ML INH ×2 (15:00→19:31)
[2024-06-20] MEDS: SODIUM CHLORIDE 3% FOR INHALATION 1 VIAL INH ×2 (15:00→19:31)
[2024-06-20 15:12] VITALS: BP 103/47
[2024-06-20] MEDS: SODIUM CHLORIDE 3% FOR INHALATION INH (16:35)
[2024-06-20] MEDS: LOVENOX 40 MG SC (17:03)
[2024-06-20] MEDS: ATIVAN 0.5 MG PO (22:08)
[2024-06-20 23:12] VITALS: BP 122/50
[2024-06-20] MEDS: TYLENOL 650 MG PO (23:18)
[2024-06-21 06:00] VITALS: BMI 20.2
[2024-06-21 07:30] VITALS: BP 104/51
[2024-06-21] MEDS: DUONEB 3 ML INH ×3 (07:30→15:12)
[2024-06-21] MEDS: SODIUM CHLORIDE 3% FOR INHALATION 1 VIAL INH ×3 (07:30→15:12)
[2024-06-21 08:12] LABS: Hematocrit 31.8 % (37.0-47.0); Mean Corp Hgb Conc. 31.4 g/dL (33.0-37.0); Mean Corpuscular Hgb 27.9 pg (27.0-31.0); Mean Corpuscular Volume 88.6 fL (81.0-99.0); Mean Platelet Volume 12.2 fL (7.4-10.4); Platelet Count 66 10^3/uL (130-400); Red Blood Cell Count 3.59 10^6/uL (4.20-5.40); Red Cell Dist. Width 15.3 % (11.5-14.5); White Blood Cell Count 4.2 10^3/uL (4.8-10.8)
--- NOTE | 2024-06-21 08:28 | W.PN.PUL3 ---
Today's Communication / Plan
-
While hospitalized, continue with DuoNebs + antibiotics (ceftriaxone + Zithromax)
Upon discharge, sent home on Striverdi + Yupelri given she feels most benefit with nebulizers and in the setting of recurrent pneumonia we avoid ICS
Repeat imaging as an outpatient to assure her right-sided pneumonia improves
Discharge with prednisone taper starting at 40 mg daily and reduce by 10 mg every fourth day until off
Patient being planned for discharge back to skilled nursing today; Pulmonary service will continue to follow along while she remains hospitalized and we will arrange for outpatient pulmonary office follow-up
Assessment
-
Assessment: 69-year-old female with a past medical history of alcoholic cirrhosis, COPD on supplemental oxygen and history of HE + EV who presents with worsening SOB + fever. Patient arrived to ER on 100 send NRB via EMS. She normally wears 3
L/min nasal cannula. 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 Patient follows with us in the office with last visit on 03/01/2024 with MOIZ Connolly. At that time she was stable with her moderate severity shortness of breath mainly with
exertion and endorsed a productive cough with minimal amounts of yellow sputum. She was on Advair diskus 100 mcg + Incruse. She was rarely using her rescue inhaler. Last spirometry on 12/07/2023 showing Gold class II COPD with a significant
bronchodilator response with post-BD FEV1: 1.08 L / 52% predicted. Of note she was hospitalized twice in February for suspected right lower lobe pneumonia. She did have a video fluoroscopic swallow exam on 05/25/2024 showing no fluoroscopic evidence
for airway aspiration. For her current hospitalization, she was febrile in the ER to 101.3 �F, pulse rate 97, respiratory rate 20, BP 88/54 and saturating 93% on 5 L/min. Labs showed WBC 5.6, Hb 11.2, platelet count 80, glucose 139, and COVID-19
antigen negative. Flu swab was negative for influenza A + B. Blood cultures were collected, and CXR showed suspected mild right lower lobe pneumonia. In the ER she was given DuoNebs, Solu-Medrol 60 mg, 1 L NS 0.9% + Tylenol. She was admitted to
the hospitalist service and now Pulmonary service consulted for additional management/recommendations
Chronic conditions ENVIRONMENTAL HEALTH OFFICER: COPD/emphysema, alcoholic cirrhosis with history of HE + esophageal varices, polyneuropathy, anxiety, depression, chronic hypoxic respiratory failure on supplemental oxygen (3L/min)
Impression:
#Acute COPD exacerbation
#CAP involving RLL (recurrent)
#Acute on chronic respiratory failure with hypoxia due to above
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
#Chronic anemia (baseline Hb 10 - 11.5 g/dL)
#Chronic thrombocytopenia due to cirrhosis
#Former tobacco smoker ([id number] history, quit smoking in January 2023
#Right upper lobe nodule s/p robotic bronchoscopy on 01/14/2024 which was negative for malignancy and is suspected to be an infectious/inflammatory process
#Small sliding hiatal hernia
#Interstitial lung abnormalities involving the posterior right lower lobe, suspected to be due to nature of atelectasis + mucous plugging vs aspiration as she does have bronchiectasis in this region and significant bronchial wall thickening (via CT
Chest 12/2023)
#Hx of alcoholic cirrhosis with Hx of HE + EV
Plan:
- She has chronic opacification in the right lower lobe which is best seen on prior CT chest from 01/07/2024 with focal bronchiectasis with significant bronchial wall thickening; it appears more opacified now on current CXR from 06/19/2024, and with
the concomitant fevers and worsening hypoxia it is appropriate to suspect she has a active pneumonia
- Continue broad-spectrum antibiotics with ceftriaxone + Zithromax, and would plan to treat for total of 7 days assuming she continues to clinically improve and remains afebrile for 48 hours prior to stopping antibiotics
- Follow-up infectious workup including blood cultures; urine antigens for Legionella + strep pneumonia both negative; check sputum culture if she can produce a decent sample
- Continue with systemic steroids and wean as she clinically improves � currently on Solu-Medrol 40 mg IV q12hr --> transition to prednisone taper starting at 40mg daily and reduce by 10mg every 4th day until off
- Maintain SpO2 88-95% with supplemental O2 and wean down as tolerated
- Would recheck home O2 assessment prior to discharge back to her skilled nursing
- PT - no skilled PT needed per PT
- She takes Advair diskus 100mcg + Incruse at home --> stopped spiriva and Tx with DuoNebs QID with prn duonebs for breakthrough symptoms
- Mucolytics with Mucinex; acapella; on 06/20 I started Vest therapy with nebulized 3% HT for more aggressive assistance with expectoration, and this is helping her
- Aspiration precautions; keep HOB >30-45�
- Consider RUSSIAN HISTORY PROFESSOR eval, although she recently obtained a videofluoroscopic swallow evaluation on 05/25/2024 showing no fluoroscopic evidence for aspiration into the airway
- She was hospitalized twice in February due to a right lower lobe pneumonia, where she was altered after she had vomited on 03/19/2024 and was acutely hypoxic, and she was Tx for a COPD flare on 03/07/2024 admission and was acutely hypoxic
- Considering her multiple readmissions for right lower lobe pneumonia + COPD flares, she would be a candidate for refractory COPD treatment with azithromycin or Ohtuvayre, possibly both; once she is done with current course of Abx, then would
change to azithromycin 250mg daily with outpatient audiology and occasional monitoring of her QTc (459ms on EKG from 06/19/2024); not a candidate for dupixent as her absolute eos are <300; given her recurrent PNA, we should stop her ICS given she
does not feel a benefit with Advair, so changing to a LAMA/LABA seems appropriate. She reports that she likes taking nebulizers so would DC home with Striverdi + yupelri with prn albuterol MDI + nebulized
- Incentive spirometer encouraged q1hr while awake
- Replete electrolytes with K>4, Mg>2
- Trend H/H and transfuse if needed to keep Hb>7g/dL; keep plt>20k, unless there is concern for bleeding then keep plt>50k
- Maintain euglycemia with goal BG >100 and <180
- DVT ppx: LMWH
Pt being planned for discharge today back to her NH. Pulmonary service will continue to follow along until discharged. Will assure she has outpatient pulmonary office follow up and we will work on her vest and starting nebulized 3% NS. She will
need repeat imaging as an outpatient with CXR to assure her right lower lobe pneumonia improves.
Data:
CXR 06/19/2024:
Mild right lower lobe pneumonia.
Stable mild cardiomegaly and mild vascular congestion. Suspect trace pleural effusion.
Total time spent today was 38 minutes for this encounter. Time includes reviewing laboratory test/imaging results, reviewing pertinent medical records, obtaining and reviewing medical history, performing an appropriate exam, ordering medications,
tests and procedures. Time also includes documentation of this encounter, coordinating patient care and communicating with other healthcare professionals. Total time does not include separately billed tests performed on this date of service.
Subjective Data
-
Date of Service:
Date of Service: June 21, 2024
Chief Complaint: Pulmonary Follow Up
Subjective:
Patient was seen and evaluated today at bedside. Says the vest/nebulized 3% is helping bring up her phlegm. Shortness of breath is improved. Currently resting in chair on 3 L/min nasal cannula. Denies chest pain, MAY, nausea, fevers or chills.
Review of Systems
General: Other (Negative unless mentioned above)
Objective Data
Data Reviewed
Vital Signs / I&O / Oxygen:
Vital Signs
Temp Pulse Resp BP Pulse Ox
98.2 F 88 20 104/51 93
06/21/24 07:30 06/21/24 07:36 06/21/24 07:36 06/21/24 07:30 06/21/24 07:36
Intake and Output
06/20/24 06/21/24 06/22/24
06:59 06:59 06:59
Intake Total 480 / 480 1440 / 1440
Balance 480 / 480 1440 / 1440
SaO2 93
Nasal Cannula flow liters per 4
minute
Physical Exam
General: Respiratory Distress (negative), Comfortable, Chills (negative) and Sweats (negative)
HEENT: Normocephalic and Anicteric
Cardiovascular: S1-S2 and Peripheral Edema (negative)
Respiratory: Wheeze (negative), Crackles (Bilateral, predominantly in the bases), Rhonchi (Bibasilar) and Non-Labored Respirations
GI: Soft, Non Distended, Non Tender and Normal Bowel Sounds
Neurology: AO x 3 and Tremors (negative)
Skin: Warm, Dry, Cyanosis (negative) and Jaundice (negative)
Labs/Micro/Reports
Lab Data
06/21/24 07:29
06/20/24 06:00
Microbiology
06/19/24 16:58 Blood/Venous Blood Culture - Preliminary
No Growth in 24 hours- Final report to follow
06/19/24 16:11 Blood/Venous Blood Culture - Preliminary
No Growth in 24 hours- Final report to follow
06/20/24 08:46 Urine Legionella Urinary Antigen - Final
Negative for Legionella pneumophila Serogroup 1 antigen.
A negative result does not rule out the possiblity of
Legionella infection due to other serogroups or species of
Legionella. Clinical correlation is recommended.
06/20/24 08:46 Urine Streptococcus pneumoniae Antigen (M - Final
Negative for Streptococcus pneumoniae antigen.
A negative result does not exclude infection with
Streptococcus pneumoniae. Clinical correlation is
recommended.
06/19/24 16:10 Nasal Swab Influenza Types A & B (ISAAC) - Final
Negative for Influenza A & B, NAAT
Negative results must be combined with clinical observations
and patient history.
Nucleic Acid Amplification test (NAAT)performed on the
[employer] platform.
[2024-06-21] MEDS: DUPHALAC/CHRONULAC 10 GRAMS PO (09:01)
[2024-06-21] MEDS: NEURONTIN 400 MG PO (09:02)
[2024-06-21] MEDS: MUCINEX 1200 MG PO (09:02)
[2024-06-21] MEDS: ACTIGALL 300 MG PO (09:03)
[2024-06-21] MEDS: ALDACTONE 25 MG PO (09:03)
[2024-06-21] MEDS: ZITHROMAX 500 MG PO (09:03)
[2024-06-21] MEDS: REFRESH CELLUVISC GEL 1 DROPS BOTH EYES (09:03)
[2024-06-21] MEDS: ZOLOFT 25 MG PO (09:04)
[2024-06-21] MEDS: PEPCID 20 MG PO (09:04)
[2024-06-21] MEDS: XIFAXAN 550 MG PO (09:04)
[2024-06-21] MEDS: LASIX 20 MG PO (09:04)
[2024-06-21] MEDS: DELTASONE 40 MG PO (09:16)
[2024-06-21] MEDS: SOLU-MEDROL PF IV (09:30)
--- NOTE | 2024-06-21 10:28 | W.PN.HOSP.TC ---
Today's Communication/Plan
-
dc
Assessment / Plan
Assessment / Plan
69yo F with PMHX of spinal Sx with chronic back pain, liver cirrhosis chronic respiratory failure on 3L home O2 2/2 COPD came with worsening cough, subjective fevers, on admission with worsening hypoxia and possible RLL pneumonia. 3rd
hospitalization for the same over past 4 months. Managed for COPD exacerbation, improved to baseline, pulm recommended 7 days Abx, since patient is afebrile for 48h with improvement - ptient can be switched to oral Abx. Recommended to continue
Azithromycin 250mg daily upon completion of main course of Abx with scheduled audiometry and QTc monitoring. Medically stable to be d/c home as per agreement with car chaser
A/P:
#Acute on chronic hypoxic respiratory failure 2/2 COPD exacerbation with questionable RLL pneumonia
#Pulmonary HTN
Taper steroids
cont bronchodilators
wean off O2 to 3L
Mucolythics
Azithromicin/Ceftriaxone, but with neg Procalcitonin strongly doubt bacterial pneumonia
COVID-19 and Influenza PCR neg
Check S.pneumonia and legionella urinary Ag
Sputum Cx if possible
Pulm consult
#minimal leukopenia
improving
follow CBC
#liver cirrhosis with chronic thrombocytopenia
#GERD
cont home meds
DVT ppx Lovenox
FUll code
I have spent a t least 36min reviewing chart, test results, communication with consultants and providing direct patient care
Anticipated Discharge: Today
Subjective/Interval History
-
Date of Service: June 21, 2024
Objective Data
-
Labs:
Laboratory Results
06/21/24
07:29
WBC 4.2 L
Hgb 10.0 L
Hct 31.8 L
Plt Count 66 L
Vital Signs:
Vital Signs
Temp Pulse Resp BP Pulse Ox
98.2 F 65 20 104/51 93
06/21/24 07:30 06/21/24 09:03 06/21/24 07:36 06/21/24 09:03 06/21/24 07:36
I&O
06/20/24 06/21/24 06/22/24
06:59 06:59 06:59
Intake Total 480 / 480 1440 / 1440
Balance 480 / 480 1440 / 1440
Review of Systems
-
History Source: Patient
All other systems: Reviewed and negative
Physical Exam
-
General: No Apparent Distress
Respiratory: Wheezes
GI: Soft, Nontender and Nondistended
Musculoskeletal: No Clubbing, No Cyanosis and No Edema
Psych: Calm
--- NOTE | 2024-06-21 10:45 | W.DCSUMMARY ---
Addendum entered and electronically signed by Wood Erazo MD 06/21/24 12:33:
#Mild chronic anemia, most likely 2/2 chronic disease
Original Note:
Discharge Summary
Discharge Data
Date of Admission: 06/19/24
Date of Discharge: 06/21/24
-
Pending Results: No
Hospital Course
69yo F with PMHX of spinal Sx with chronic back pain, liver cirrhosis chronic respiratory failure on 3L home O2 2/2 COPD came with worsening cough, subjective fevers, on admission with worsening hypoxia and possible RLL pneumonia. 3rd
hospitalization for the same over past 4 months. Managed for COPD exacerbation, improved to baseline, pulm recommended 7 days Abx, since patient is afebrile for 48h with improvement - ptient can be switched to oral Abx. Recommended to continue
Azithromycin 250mg daily upon completion of main course of Abx with scheduled audiometry and QTc monitoring. Medically stable to be d/c home as per agreement with cement mason helper. Discharged with new Striverdi, Yupelri, Fluticasone and Albuterol
inhalers. Duoneb, Incruse, Symbicort stopped.
Patient was managed for:
#Acute on chronic hypoxic respiratory failure 2/2 COPD exacerbation with questionable RLL pneumonia
#Pulmonary HTN
#minimal leukopenia
#liver cirrhosis with chronic thrombocytopenia
#GERD
Discharge Plan
-
Patient Disposition: Home (Routine Discharge)
Discharge Diagnosis/Procedures: pneumonia
Diet: Regular
Referrals:
Douglas Conner I., DO [Family Provider] -
Quintin Mendoza MD [Active] - in two to four weeks
Prescriptions:
New
cefdinir 300 mg capsule
300 mg PO BID Qty: 14 0RF
prednisone 10 mg Tablet
See Rx Instructions .ROUTE .COMPLEX Qty: 30 0RF
Rx Instructions:
Take By Mouth:
40 mg daily x3 days, 30 mg daily x3 days,
20 mg daily x3 days, 10 mg daily x3 days.
doxycycline hyclate 100 mg capsule
100 mg PO BID Qty: 14 0RF
azithromycin 250 mg tablet
250 mg PO DAILY 10 Days Qty: 36 0RF
Rx Instructions:
start after completion of Doxycycline and Cefdinir
Striverdi Respimat 2.5 mcg/actuation mist
2 inh inhalation DAILY Qty: 4 0RF
Yupelri 175 mcg/3 mL solution for nebulization
175 mcg inhalation DAILY Qty: 90 0RF
Arnuity Ellipta 100 mcg/actuation blister with device
1 inh inhalation DAILY Qty: 30 0RF
guaifenesin 600 mg Tablet Extended Release 12hr
1,200 mg PO Q12 Qty: 60 0RF
albuterol sulfate 2.5 mg/0.5 mL solution for nebulization
2.5 mg inhalation Q4H PRN (Reason: shortness of breath or wheezing) Qty: 30 0RF
Continued
furosemide 20 mg Tablet
20 mg PO DAILY
lactulose 10 gram/15 mL Solution
15 ml PO TID
gabapentin 400 mg Capsule
400 mg PO TID
magnesium hydroxide [Milk of Magnesia] 400 mg/5 mL Suspension
30 ml PO [id number] PRN (Reason: if no BM in 3 days)
bisacodyl [Dulcolax (bisacodyl)] 10 mg Suppository
10 mg LA DAILYPRN PRN (Reason: if MOM ineffective after 24 hrs)
melatonin 5 mg Tablet
5 mg PO HS
polyethylene glycol 3350 [Miralax] 17 gram Powder In Packet
17 g PO DAILYPRN PRN (Reason: constipation)
spironolactone 25 mg Tablet
25 mg PO DAILY
sertraline 25 mg Tablet
25 mg PO DAILY
lorazepam 0.5 mg Tablet
0.5 mg PO [id number] PRN (Reason: anxiety) Qty: 10 0RF
acetaminophen [Tylenol] 325 mg Tablet
650 mg PO Q4HPRN PRN (Reason: mild pain/temp>100F)
ursodiol 300 mg Capsule
300 mg PO BID
Fleet Enema 19-7 gram/118 mL Enema
118 ml LA DAILYPRN PRN (Reason: if no bm aftr dulcolax)
famotidine [Pepcid] 20 mg Tablet
20 mg PO DAILY
calcium carbonate 500 mg calcium (1,250 mg) Tablet,Chewable
1,000 mg PO Q8HPRN PRN (Reason: reflux/indigestion)
magnesium glycinate 100 mg Tablet
100 mg PO HS
rifaximin 550 mg Tablet
550 mg PO BID
hydrocortisone 1 % Cream
1 applic TOPICAL BID
Rx Instructions:
L hip
nicotine 14 mg/24 hr Patch 24 Hour
14 mg transdermal DAILY Qty: 30 0RF
hydrocodone-acetaminophen 5-325 mg Tablet
1 tab PO BIDPRN PRN (Reason: severe pain)
Refresh Optive 0.5-0.9 % Drops
1 drp BOTH EYES BID
benzonatate 100 mg capsule
200 mg PO TIDPRN PRN (Reason: Cough)
Discontinued
fluticasone propion-salmeterol [Advair Diskus] 100-50 mcg/dose Blister With Device
1 inh INHALATION R QPM
Incruse Ellipta 62.5 mcg/actuation Blister With Device
1 inh INHALATION R DAILY
ipratropium-albuterol 0.5 mg-3 mg(2.5 mg base)/3 mL solution for nebulization
3 ml inhalation R Q6HPRN PRN (Reason: shortness of breath or wheezing)
Discharge Orders:
Discharge Patient (As Directed); Ordered 06/21/24
Ordered By: Wood Erazo
Discharge Date and Time
Print Language: CAMEROONIAN
--- NOTE | 2024-06-21 11:01 | CM ---
Reviewed the chart notes ands poke with the patient at the bedside. IMM reviewed. CM continues to be available to patient/family and is monitoring medical plan for needs at discharge.
Plan: Discharge back to [facility] today.
Call report to: [phone]
Fax report to: [phone] or [phone]
Medical necessity and transport forms on chart.
--- NOTE | 2024-06-21 12:09 | PN.CDI ---
Addendum entered and electronically signed by Wood Erazo MD 06/21/24 12:33:
described as separate cytopenias
Original Note:
CDI
- -
CDI:
Physician Documentation Request
Admit Date: 06/19/24 21:11
Dear Doctor Kacey,
Patient noted to have liver cirrhosis with chronic thrombocytopenia
Most recent labs:
Laboratory Tests
06/20/24 06/21/24
06:00 07:29
WBC 2.8 L 4.2 L
RBC 4.00 L 3.59 L
Plt Count 65 L 66 L
Please clarify the diagnosis that supports the above lab abnormalities and additional evaluation/monitoring:
Pancytopenia (please specify if known)
Thrombocytopenia only
Other
Use of terms such as suspected, likely, concern for, or probable (associated with a specific diagnosis that is being evaluated, monitored, or treated as if it exists) are acceptable and can be coded in the inpatient setting, when documented at the
time of discharge.
Thank you,
Victorina Larsen RN, BSN
CDI Specialist
tiger text
Please use your independent medical judgment in providing your response.
[2024-06-21] MEDS: MAALOX 30 ML PO (13:16)
[2024-06-21 15:29] VITALS: BP 100/52
== END 2024-06-21 16:05 | disposition home or self-care (01) | DRG 193 ==
LOC: 2 NORTH 21:11
PROVIDERS: Physician Assistant; ADMITTING PHYSICIAN Internal Medicine; ATTENDING PHYSICIAN Internal Medicine; CONSULT PHYSICIAN Internal Medicine Critical Care Medicine; EMERGENCY PHYSICIAN Emergency Medicine; FAMILY PHYSICIAN Internal Medicine
DX: J18.9 Pneumonia, unspecified organism (principal); J96.21 Acute and chronic respiratory failure with hypoxia; J44.0 Chronic obstructive pulmonary disease with (acute) lower respiratory infection; J44.1 Chronic obstructive pulmonary disease with (acute) exacerbation; Z99.81 Dependence on supplemental oxygen; K70.30 Alcoholic cirrhosis of liver without ascites; Z79.51 Long term (current) use of inhaled steroids; M54.9 Dorsalgia, unspecified; G89.29 Other chronic pain; I27.20 Pulmonary hypertension, unspecified; D69.59 Other secondary thrombocytopenia; K21.9 Gastro-esophageal reflux disease without esophagitis; Z87.01 Personal history of pneumonia (recurrent); Z87.891 Personal history of nicotine dependence
CPT/HCPCS: 71046; 80048; 80053; 81003; 81015; 83605; 83735; 84145; 85025; 85027; 86803; 87040; 87449; 87502; 87811; 87899; 93005; 94640; 94669; 96361; 96374; 99285

== ENCOUNTER → 2024-07-28 12:34 | Outpatient (REF) | payer MEDICARE, OTHER, SELFPAY | LOC: RAD 12:34 | PROVIDERS: ATTENDING PHYSICIAN Nurse Practitioner Adult Health; FAMILY PHYSICIAN Internal Medicine | DX: J44.9 Chronic obstructive pulmonary disease, unspecified (principal); R91.8 Other nonspecific abnormal finding of lung field | CPT/HCPCS: 71046; 71250 ==